=== PATIENT | male | born 1965 | race African-American/Black ===

== ENCOUNTER 2017-05-31 00:31 | Observation (INO) | payer OTHER ==
[2017-05-31 00:58] LABS: #Basophils 0.1 thou/uL (0.0-0.2); #Lymphocytes 2.9 thou/uL (1.20-3.40); #Monocytes 0.8 thou/uL (0.11-0.59); #Neutrophils 2.8 thou/uL (1.40-6.50); %Basophils 1.7 % (0.0-1.0); %Eosinophils 12.8 % (0.0-10.0); %Lymphocytes 37.7 % (21.0-51.0); %Monocytes 10.7 % (0.0-10.0); Hematocrit 43.7 % (42.0-52.0); Mean Platelet Volume 7.5 fL (7.4-10.4); Red Blood Cell (RBC) Count 4.72 mill/uL (4.70-6.10); White Blood Cell (WBC) Count 7.6 thou/uL (4.8-10.8)
[2017-05-31 01:06] LABS: PTT 26.4 SEC (22.9-36.1); Prothrombin Time 12.9 SEC (12.0-14.7)
[2017-05-31 01:18] LABS: Digoxin Less than 0.15 ng/mL (0.8-2.0)
[2017-05-31 01:20] LABS: ALT (SGPT) 39 U/L (8-55); AST (SGOT) 27 U/L (5-34); Alkaline Phosphatase 74 U/L (40-150); Anion Gap 11 mmol/L (10-20); BUN (Urea Nitrogen) 16 mg/dL (8.4-25.7); Bilirubin, Total 0.3 mg/dL (0.2-1.2); CK (CPK) 306 U/L (30-200); Calc. Creatinine Clearance 0 mL/min (70-130); Calcium 9.9 mg/dL (7.8-10.44); Carbon Dioxide 28 mmol/L (22-29); Chloride 100 mmol/L (98-107); Estimated GFR-MDRD 77; Globulin 3.1 g/dL (2.4-3.5); Lipase 34 U/L (8-78); Protein, Total 6.9 g/dL (6.0-8.3)
[2017-05-31 01:23] LABS: Troponin I Less than 0.010 ng/mL (< 0.028)
[2017-05-31] MEDS ORDERED: Nitroglycerin 2% Ointment 1 INCH/1 GM Packet ONE ×2 (01:46→02:23)
[2017-05-31] MEDS ORDERED: Water For Inject, Bacteriostat 30 ML ONE (03:14)
[2017-05-31] MEDS ORDERED: methylPREDNISolone Sod Succ/PF 125 MG/2 ML VIAL ONE (03:14)
[2017-05-31] MEDS ORDERED: Morphine 10 MG/ML VIAL ONE (03:19)
[2017-05-31 05:02] LABS: Troponin I 0.013 ng/mL (< 0.028)
[2017-05-31] MEDS ORDERED: Ondansetron HCl/PF 4 MG/2 ML Vial ONE (05:05)
[2017-05-31] MEDS ORDERED: Ondansetron ODT 4 MG TAB SL PRN (05:25)
[2017-05-31] MEDS ORDERED: Acetaminophen 325 MG TAB PO PRN (05:25)
[2017-05-31] MEDS ORDERED: Ondansetron HCl/PF 4 MG/2 ML Vial IVP PRN (05:25)
[2017-05-31] MEDS ORDERED: Lactated Ringer's 1,000 ML IV SCH (05:30)
[2017-05-31] MEDS ORDERED: Morphine 2 MG/ML SYRINGE SLOW IVP SCH (05:45)
[2017-05-31] MEDS: Nitroglycerin 2% Ointment 1 INCH/1 GM Packet TOP SCH ×2 (05:48→13:41)
[2017-05-31] MEDS ORDERED: PROVENTIL INHALER 6.7 G (200 INHALATIONS) INH PRN (05:53)
--- NOTE | 2017-05-31 05:53 | PDOC.EVN ---
Event Note - Event Note Event Note: 727127 h&P DICTATED 1. COPD EXACERBATION 2. Chets pain 3. HTN 4. H/O DM type 2 plan: see orders
[2017-05-31] MEDS: Mometasone/Formoterol 120 PUFF INHALER INH SCH ×2 (07:03→18:07)
[2017-05-31] MEDS: Aspirin 325 MG TAB PO SCH (08:00)
[2017-05-31] MEDS: busPIRone HCl 10 MG TAB PO SCH ×3 (08:01→20:31)
[2017-05-31] MEDS: Gabapentin 300 MG CAP PO SCH ×2 (08:01→20:34)
[2017-05-31] MEDS: traMADol HCl 50 MG TAB PO SCH ×4 (08:01→20:31)
[2017-05-31 08:06] VITALS: BMI 29.0
[2017-05-31 08:26] LABS: Troponin I 0.014 ng/mL (< 0.028)
--- NOTE | 2017-05-31 08:35 | RAD ---
1 VIEW CHEST: Date: 05/31/17 COMPARISON: 01/02/17. HISTORY: Sharp left-sided chest pain. FINDINGS: Normal cardiac silhouette. Pulmonary vessels and hilum are normal. Costophrenic angles are clear. No masses. No consolidation. No pneumothorax or osseous abnormalities. IMPRESSION: No acute cardiopulmonary process. POS: [facility]
[2017-05-31] MEDS ORDERED: Insulin Detemir 100 UNITS/ML 65 UNITS in Pre-Filled Syringe 1 EACH SC SCH (09:00)
[2017-05-31] MEDS ORDERED: Lurasidone HCl 40 MG TABLET PO SCH (09:00)
[2017-05-31] MEDS ORDERED: Lisinopril 20 MG TAB PO SCH (09:00)
[2017-05-31] MEDS ORDERED: Enoxaparin Sodium 100 MG/ML SYRINGE SC SCH ×3 (09:15→21:00)
--- NOTE | 2017-05-31 10:43 | PDOC.PN ---
- Subjective Encounter Start Date: 05/31/17 Encounter Start Time: 10:41 Mr. Ramos says he feels better this morning. He has less chest pain, and is breathing better. - Objective MAR Reviewed: Yes Vital Signs & Weight: Vital Signs (12 hours) Temp Pulse Resp BP BP Pulse Ox 05/31/17 10:38 70 12 05/31/17 08:01 169/79 H 05/31/17 08:00 97.5 F L 75 16 169/79 H 93 L 05/31/17 07:03 70 12 05/31/17 05:16 97.7 F 89 18 164/89 H 94 L Weight Weight 201 lb 14.4 oz I&O: 05/30/17 05/31/17 06/01/17 06:59 06:59 06:59 Intake Total 1 Balance 1 Result Diagrams: 05/31/17 00:49 05/31/17 00:49 Additional Labs: Accuchecks 05/31/17 05/31/17 08:37 06:42 POC Glucose 220 H 89 Phys Exam - Physical Examination HEENT: PERRLA Respiratory: no rales, wheezing present + occasional wheeze Cardiovascular: RRR, no significant murmur Gastrointestinal: soft, positive bowel sounds Musculoskeletal: no edema Dx/Plan (1) Acute respiratory failure Code(s): J96.00 - ACUTE RESPIRATORY FAILURE, UNSP W HYPOXIA OR HYPERCAPNIA Status: Acute (2) Asthma exacerbation Code(s): J45.901 - UNSPECIFIED ASTHMA WITH (ACUTE) EXACERBATION Status: Acute (3) Cardiomyopathy, nonischemic Code(s): I42.8 - OTHER CARDIOMYOPATHIES Status: Acute (4) Cocaine abuse Code(s): F14.10 - COCAINE ABUSE, UNCOMPLICATED Status: Chronic (5) Hepatitis C Code(s): B19.20 - UNSPECIFIED VIRAL HEPATITIS C WITHOUT HEPATIC COMA Status: Chronic Qualifiers: Viral hepatitis chronicity: chronic Hepatic coma status: without hepatic coma Qualified Code(s): B18.2 - Chronic viral hepatitis C (6) Hypertension Code(s): I10 - ESSENTIAL (PRIMARY) HYPERTENSION Status: Chronic Qualifiers: Hypertension type: essential hypertension Qualified Code(s): I10 - Essential (primary) hypertension - Plan * Asthma exacerbation- improving with Duonebs, and steroids * DM- patient had an episode of hypoglycemia- will therefor give only half of his typical insulin dose, and continue SSI. Probably return to his home dose tomorrow * HTN- Patient says his dose of Lisinopril was lowered after he was placed on Losartan - will adjust. He may need titration of his other medications * Avoid beta blockers given his history of cocaine abuse. He says he last used about a week ago. He may benefit from a calcium channel philip * Cardiomyopathy- this is probably due to uncontrolled hypertension. It appears he may have been lost to follow-up with regards to ? evaluation for possible AICD- a repeat Echo has been ordered, as well as Cardiology evaluation.
[2017-05-31] MEDS ORDERED: Insulin Detemir 100 UNITS/ML 30 UNITS in Pre-Filled Syringe 1 EACH SC SCH (10:45)
[2017-05-31] MEDS ORDERED: Calcium Carbonate 500 MG ChewTAB PO PRN (13:11)
[2017-05-31] MEDS ORDERED: Dextrose 5% in Water 1,000 ML IV PRN (13:11)
[2017-05-31] MEDS ORDERED: Dextrose 50% Abboject 50 ML SYRINGE IVP PRN (13:11)
[2017-05-31] MEDS ORDERED: Simethicone Chewable 80 MG TAB PO PRN (13:12)
[2017-05-31] MEDS ORDERED: HumaLOG 300 UNITS/3 ML VIAL SC SCH (13:15)
[2017-05-31] MEDS ORDERED: Losartan Potassium 25 MG TAB PO SCH (13:15)
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
[2017-05-31] MEDS ORDERED: hydrALAZINE 25 MG TAB PO PRN (16:58)
[2017-05-31] MEDS ORDERED: hydrALAZINE 20 MG/ML VIAL SLOW IVP PRN (16:59)
[2017-05-31] MEDS ORDERED: Amlodipine 5 MG TAB PO SCH (17:30)
[2017-05-31] MEDS: HumaLOG 300 UNITS/3 ML VIAL SC PRN ×2 (17:34→21:08)
[2017-05-31] MEDS ORDERED: NIFEdipine XL 60 MG TAB PO SCH (19:15)
[2017-05-31] MEDS ORDERED: Doxepin HCl 25 MG CAP PO SCH (21:00)
[2017-05-31] MEDS ORDERED: Insulin Detemir 100 UNITS/ML 15 UNITS in Pre-Filled Syringe 1 EACH SC SCH (21:00)
[2017-06-01] MEDS: HumaLOG 300 UNITS/3 ML VIAL SC PRN ×2 (05:25→12:27)
--- NOTE | 2017-06-01 05:38 | CON ---
DATE OF CONSULTATION: 05/31/2017. REASON FOR CONSULTATION: Chest pain. HISTORY OF PRESENT ILLNESS: Mr. Ramos is a delightful 51-year-old gentleman previously seen and evaluated by Dr. Ayala. The patient recently underwent cardiac catheterization and was found to have only minimal atherosclerosis with no significant coronary artery disease. The patient was doing we ll and he was admitted to the hospital on this occasion with recurrent pressure, pain in the middle of his chest and across his chest. EKG was unremarkable. Cardiac enzymes were negative. He was hy pertensive. He does have a lot of symptoms to suggest reflux. He was previously on Prilosec but is not on any p roton pump inhibitors. He also was on a very low dose of statins and has uncontrolled hypertension. PHYSICAL EXAMINATION: GENERAL: This is a pleasant gentleman in no distress. VITAL SIGNS: Blood pressure 179/100, pulse 104. LUNGS: He has expiratory wheezing, has chronic asthma. CARDIAC: Normal S1, normal S2. ABDOMEN: Soft, nontender. EXTREMITIES: No clubbing or cyanosis. There is no edema. LABORATORY AND X-RAY FINDINGS: The echocardiogram shows an ejection fraction of 50%-55% with left v entricular hypertrophy, moderate, concentric. ASSESSMENT: 1. Chest pain, probably gastrointestinal reflux. 2. Diabetes. 3. Reactive airway disease, asthma. 4. Hypercholesterolemia. 5. Mild nonobstructive coronary artery disease. 6. The patient states his blood pressure has been extremely difficult to control. PLAN: 1. Change to Procardia-XL 60 mg a day, increase to 90 mg a day if needed. 2. We change from losartan to Benicar 40 mg a day. 3. Stop lisinopril, he has a chronic cough. 4. Recommend Crestor. 5. Add Protonix. 6. Okay with me to go home tomorrow morning.
[2017-06-01] MEDS: Mometasone/Formoterol 120 PUFF INHALER INH SCH (07:20)
[2017-06-01] MEDS ORDERED: Insulin Detemir 100 UNITS/ML 65 UNITS in Pre-Filled Syringe 1 EACH SC SCH (09:00)
[2017-06-01] MEDS ORDERED: Lisinopril 20 MG TAB PO SCH (09:00)
[2017-06-01] MEDS ORDERED: FLU VACC QS2017-18 36 mo. & older 0.5 ML SYRINGE IM ONE (09:00)
[2017-06-01] MEDS ORDERED: Losartan Potassium 25 MG TAB PO SCH (09:00)
[2017-06-01] MEDS ORDERED: NIFEdipine XL 60 MG TAB PO SCH (09:00)
[2017-06-01] MEDS: Gabapentin 300 MG CAP PO SCH (09:16)
[2017-06-01] MEDS: traMADol HCl 50 MG TAB PO SCH (09:17)
[2017-06-01] MEDS: busPIRone HCl 10 MG TAB PO SCH (09:17)
[2017-06-01] MEDS: Aspirin 325 MG TAB PO SCH (09:17)
[2017-06-01 11:48] VITALS: BP 139/79; TEMP 97.6
--- NOTE | 2017-06-01 23:37 | DIS ---
ADMISSION DATE: 05/31/2017 DISCHARGE DATE: 06/01/2017 DISCHARGE DISPOSITION: Home. PRIMARY CARE PHYSICIAN: [facility]. PRIMARY DISCHARGE DIAGNOSES: 1. Acute on chronic diastolic heart failure. 2. Hypertensive urgency. 3. History of substance abuse. 4. Dyslipidemia. 5. Diabetes mellitus type 2, uncontrolled. DISCHARGE MEDICATIONS: Include tramadol 50 mg q.i.d. as needed, BuSpar 10 mg 3 times a day, Crestor 20 mg at bedtime, pantoprazole 40 mg daily, Procardia-XL 60 mg daily, Latuda 40 mg daily, Levemir i nsulin 65 units daily, NovoLog as directed, gabapentin 300 mg twice a day, doxepin 50 mg at bedtime, Symbicort 160/4.5 two puffs twice a day, albuterol ProAir inhaler q.4 hours as needed. PROCEDURES DONE DURING ADMISSION: The patient had an echocardiogram demonstrating an ejection fract ion estimated at 50 to 55%, moderate concentric left ventricular hypertrophy. There are structurall y normal aortic valve and trace aortic insufficiency. CODE STATUS: FULL CODE. ALLERGIES: No known drug allergies. HOSPITAL COURSE: Mr. Ramos is a pleasant 51-year-old gentleman, who has a history of hypertensio n and diabetes as well as hyperlipidemia. He was admitted with shortness of breath and chest pain. He had basically a COPD exacerbation as well as some hypertensive urgency. He was treated with neb treatments and steroids and improved with this and was discharged home on Symbicort inhaler. He al so had the adjustment of his antihypertensive medications during his hospital stay as well. Procard ia was added and lisinopril was discontinued. Losartan was changed to Benicar for better blood pres sure management. I suspected that the chest pain most likely related to the blood pressure elevatio n as well as COPD exacerbation. The patient was counseled on smoking as well as drug use and the or ed to quit. An echocardiogram was done, which showed an improvement on his ejection fraction from a previous echo and therefore he would no longer require evaluation for AICD. He was seen by Cardiofaheem sandy during this hospital stay. Once stabilized, he was subsequently discharged home and to follow u p with his primary care physician in 1 to 2 weeks.
== END 2017-06-01 13:06 | disposition home or self-care (01) ==
LOC: ERS 00:31 → 2SW 04:22
PROVIDERS: ADMIT Internal Medicine; ATTEND Internal Medicine
DX: I11.0 Hypertensive heart disease with heart failure (principal); I50.33 Acute on chronic diastolic (congestive) heart failure; I16.0 Hypertensive urgency; E11.65 Type 2 diabetes mellitus with hyperglycemia; J45.901 Unspecified asthma with (acute) exacerbation; E78.00 Pure hypercholesterolemia, unspecified; I25.10 Atherosclerotic heart disease of native coronary artery without angina pectoris; J96.00 Acute respiratory failure, unspecified whether with hypoxia or hypercapnia; F14.10 Cocaine abuse, uncomplicated; B19.20 Unspecified viral hepatitis C without hepatic coma; Z79.4 Long term (current) use of insulin; Z79.899 Other long term (current) drug therapy; Z86.59 Personal history of other mental and behavioral disorders
CPT/HCPCS: 36415; 36416; 71010; 80053; 80162; 82553; 83690; 84484; 85025; 85610; 85730; 90471; 90682; 93005; 93306; 94640; 94760; 96372; 96374; 96375; 96376; G0008; G0378; J0360; J1650; J1815; J2270; J2405; J2920; J2930; J7620; Q2036

== ENCOUNTER 2017-06-02 21:27 | Emergency (ER) | payer OTHER ==
--- NOTE | 2017-06-02 22:01 | RAD ---
AP VIEW OF THE CHEST 06/02/17 INDICATION: Chest pain. COMPARISON: Prior exam dated 05/31/17. IMPRESSION: No acute cardiopulmonary abnormality. The examination does not appear appreciably changed from the c omparison study. POS: [facility]
[2017-06-02 22:07] LABS: #Basophils 0.1 thou/uL (0.0-0.2); #Eosinphils 0.2 thou/uL (0.0-0.7); #Lymphocytes 3.8 thou/uL (1.20-3.40); #Monocytes 0.8 thou/uL (0.11-0.59); #Neutrophils 3.7 thou/uL (1.40-6.50); %Basophils 1.3 % (0.0-1.0); %Eosinophils 2.2 % (0.0-10.0); %Lymphocytes 43.6 % (21.0-51.0); %Monocytes 9.6 % (0.0-10.0); Hematocrit 43.9 % (42.0-52.0); Mean Platelet Volume 7.7 fL (7.4-10.4); White Blood Cell (WBC) Count 8.7 thou/uL (4.8-10.8)
[2017-06-02] MEDS ORDERED: Nitroglycerin 2% Ointment 1 INCH/1 GM Packet ONE (22:16)
[2017-06-02 22:24] LABS: ALT (SGPT) 30 U/L (8-55); AST (SGOT) 22 U/L (5-34); Alkaline Phosphatase 68 U/L (40-150); Anion Gap 15 mmol/L (10-20); BUN (Urea Nitrogen) 15 mg/dL (8.4-25.7); Bilirubin, Total 0.3 mg/dL (0.2-1.2); CK (CPK) 186 U/L (30-200); Calc. Creatinine Clearance 0 mL/min (70-130); Calcium 8.7 mg/dL (7.8-10.44); Carbon Dioxide 24 mmol/L (22-29); Chloride 102 mmol/L (98-107); Estimated GFR-MDRD 74; Globulin 3.7 g/dL (2.4-3.5); Protein, Total 7.4 g/dL (6.0-8.3)
[2017-06-02 22:29] LABS: Troponin I 0.013 ng/mL (< 0.028)
[2017-06-02] MEDS ORDERED: Albuterol Sulfate 1.25 MG/3 ML NEB ONE (22:33)
[2017-06-02] MEDS ORDERED: Albuterol Sulfate 2.5 mg/3 ml Neb ONE (22:37)
[2017-06-03] MEDS ORDERED: Morphine 10 MG/ML VIAL ONE (00:19)
--- NOTE | 2017-06-13 16:07 | EKG ---
Test Reason : CHEST PAIN Blood Pressure : / mmHG Vent. Rate : 081 BPM Atrial Rate : 081 BPM P-R Int : 160 ms QRS Dur : 112 ms QT Int : 376 ms P-R-T Axes : 057 -44 069 degrees QTc Int : 436 ms Normal sinus rhythm Possible Left atrial enlargement Left axis deviation Left ventricular hypertrophy Nonspecific T wave abnormality Abnormal ECG Confirmed by KASSANDRA ACHARYA DO ([id number]), video effects editor MIKE GARCIA ([id number]) on 06/13/2017 4:07:05 PM Referred By: Confirmed By:KASSANDRA ACHARYA DO
== END 2017-06-03 01:02 | disposition short-term general hospital (02) ==
LOC: ERS 21:27
DX: R07.2 Precordial pain (principal); J44.9 Chronic obstructive pulmonary disease, unspecified; E11.9 Type 2 diabetes mellitus without complications; I10 Essential (primary) hypertension; F32.9 Major depressive disorder, single episode, unspecified; F20.9 Schizophrenia, unspecified; Z79.4 Long term (current) use of insulin; Z79.899 Other long term (current) drug therapy
CPT/HCPCS: 71010; 80053; 82553; 84484; 85025; 93005; 94640; 96374; J2270; J7611

== ENCOUNTER 2017-11-03 10:03 | Emergency (ER) | payer MEDICAID, MEDICARE ==
[2017-11-03 12:19] LABS: #Basophils 0.1 thou/uL (0.0-0.2); #Eosinphils 0.2 thou/uL (0.0-0.7); #Lymphocytes 1.9 thou/uL (1.20-3.40); #Monocytes 0.9 thou/uL (0.11-0.59); #Neutrophils 4.2 thou/uL (1.40-6.50); %Basophils 0.9 % (0.0-1.0); %Eosinophils 2.8 % (0.0-10.0); %Lymphocytes 25.9 % (21.0-51.0); %Monocytes 12.9 % (0.0-10.0); %Neutrophils 57.5 % (42.0-75.0); Hemoglobin 15.4 g/dL (14.0-18.0); Mean Corpuscular HGB CONC 33.3 g/dL (32.0-36.0); Mean Corpuscular Hemoglobin 30.8 pg (27.0-31.0); Mean Corpuscular Volume 92.5 fl (80.0-94.0); Mean Platelet Volume 8.3 fL (7.4-10.4); Platelet Count 276 thou/uL (130-400); RBC Distribution Width 12.8 % (11.5-14.5); White Blood Cell (WBC) Count 7.2 thou/uL (4.8-10.8)
[2017-11-03 12:26] LABS: ALT (SGPT) 39 U/L (8-55); AST (SGOT) 25 U/L (5-34); Alkaline Phosphatase 105 U/L (40-150); Anion Gap 15 mmol/L (10-20); BUN (Urea Nitrogen) 16 mg/dL (8.4-25.7); Bilirubin, Total 0.6 mg/dL (0.2-1.2); Calc. Creatinine Clearance 0 mL/min (70-130); Calcium 8.9 mg/dL (7.8-10.44); Carbon Dioxide 19 mmol/L (22-29); Chloride 101 mmol/L (98-107); Estimated GFR-MDRD 72; Globulin 3.9 g/dL (2.4-3.5); Glucose 446 mg/dL (70-105); Potassium 4.1 mmol/L (3.5-5.1); Protein, Total 7.9 g/dL (6.0-8.3); Sodium 131 mmol/L (136-145)
--- NOTE | 2017-11-03 14:07 | RAD ---
LEFT FOOT THREE VIEWS: CLINICAL HISTORY: Soft tissue wound. FINDINGS: There is scattered osteoarthritis of the left foot. Calcaneal enthesophyte formation is seen. There is vascular calcification. No acute fracture or dislocation. IMPRESSION: Degenerative change of the left foot osseous structures without acute osseous abnormality identified. POS: [facility]
--- NOTE | 2017-11-03 14:11 | RAD ---
RIGHT FOOT THREE VEIWS: CLINICAL HISTORY: Soft tissue wound. FINDINGS: There is scattered mild osteoarthritis. There is vascular calcification. No fracture or dislocation . Calcaneal enthesophyte formation is present. IMPRESSION: 1. Mild osteoarthritis. 2. No acute osseous abnormality of the right foot. POS: [facility]
[2017-11-03] MEDS ORDERED: Morphine 4 MG/ML VIAL ONE ×2 (14:41→16:32)
[2017-11-03] MEDS ORDERED: Acetaminophen 500 MG TAB ONE (14:41)
[2017-11-03] MEDS ORDERED: Piperacillin/Tazobactam 4.5 GM in Sodium Chloride 0.9% 100 ML IVPB SCH (15:00)
[2017-11-03] MEDS ORDERED: HYDROcodone/Acetaminophen 5/325 mg Tablet PO PRN (18:08)
[2017-11-03] MEDS ORDERED: hydrALAZINE 20 MG/ML VIAL SLOW IVP PRN (18:08)
[2017-11-03] MEDS ORDERED: Benzonatate 100 MG CAP PO PRN (18:08)
[2017-11-03] MEDS ORDERED: traMADol HCl 50 MG TAB PO PRN (18:08)
[2017-11-03] MEDS ORDERED: Lorazepam 1 MG TAB PO PRN (18:08)
[2017-11-03] MEDS ORDERED: Calcium Carbonate 500 MG ChewTAB PO PRN (18:08)
[2017-11-03] MEDS ORDERED: Senokot 8.6 MG TAB PO PRN ×2 (18:08)
[2017-11-03] MEDS ORDERED: Nitroglycerin 0.4 MG TAB (25 Tab Bottle) SL PRN (18:08)
[2017-11-03] MEDS ORDERED: Bisacodyl 5 MG TAB PO PRN ×2 (18:08)
[2017-11-03] MEDS ORDERED: Acetaminophen 325 MG TAB PO PRN (18:08)
[2017-11-03] MEDS ORDERED: Diabetic Tussin 200 MG/10 ML UDCUP PO PRN (18:08)
[2017-11-03] MEDS ORDERED: Ondansetron HCl/PF 4 MG/2 ML Vial IVP PRN ×2 (18:08)
[2017-11-03] MEDS ORDERED: Loratadine 10 MG TAB PO PRN (18:08)
[2017-11-03] MEDS ORDERED: Mag-Al 1200 mg/1200 mg/30 ML UDCUP PO PRN (18:08)
[2017-11-03] MEDS ORDERED: cloNIDine 0.1 MG TAB PO PRN (18:08)
[2017-11-03] MEDS ORDERED: Sodium Chloride 0.9% 1,000 ML IV SCH (18:15)
[2017-11-03] MEDS ORDERED: Dextrose 5% in Water 1,000 ML IV PRN (18:18)
[2017-11-03] MEDS ORDERED: HumaLOG 300 UNITS/3 ML VIAL SC PRN ×2 (18:18)
[2017-11-03] MEDS ORDERED: Dextrose 50% Abboject 50 ML SYRINGE SLOW IVP PRN (18:18)
[2017-11-03] MEDS ORDERED: Bacitracin Zinc 1 Packet ONE (18:36)
--- NOTE | 2017-11-03 19:36 | HP ---
DATE OF ADMISSION: 11/03/2017 PRIMARY CARE PHYSICIAN: Robert Broderick M.D. CHIEF COMPLAINT: Abscess of the left foot with pain and swelling. HISTORY OF PRESENT ILLNESS: Mr. Ramos is a 52-year-old Afro-Chinese male with past medical histo ry of diabetes, hypertension, COPD, hepatitis C as well as CHF, who presented to the emergency room w ith the above-mentioned complaint. His history is mainly obtained by the patient himself. [facility] medical records have been reviewed. According to Mr. Ramos, he started to notice that his foot on the left has been hurting and when h e looked he found that he has a big blister underneath. He does not remember how he got the blister, but he reports that he has significant neuropathy and is unable to wear any kind of shoes. He has h ardwood floor and tile floor in his home and most likely things that he abraded his foot. He has not been able to get appointment with his primary care physician and of note is that his wound has been draining pus at home. It is all underneath his toes as well as in between the toes of the left foot. He denies any fever, chills, nausea, vomiting, body aches or other symptoms at this time. He state s he is compliant with his medications, but has run out of Levemir 2 days ago, but is still using hemant rt-acting insulin. He is checking his blood sugar and blood pressure, but is unable to tell me what his average blood sugar is. Upon presentation to the emergency room, he is hemodynamically stable. He underwent x-ray of the corbin t on the right as well as left and they are both negative for any acute osseous abnormality except fo r degenerative changes. He has received IV antibiotics in the emergency room in the form of vancomyc in and Zosyn, and is now being admitted for further evaluation and care. Dr. Mendoza from [facility] team has been consulted for possible debridement and evaluating the patient in the emergency stefan at this time. PAST MEDICAL HISTORY: 1. Nonobstructive coronary artery disease. 2. Chronic persistent asthma with multiple asthma flares, requiring hospitalization. 3. Hypertension. 4. Chronic hepatitis C. 5. Gastroesophageal reflux disease. 6. Obesity. PAST SURGICAL HISTORY: Cardiac catheterization. PAST PSYCHIATRIC HISTORY: Paranoid schizophrenia. ALLERGIES: No known medication allergies. SOCIAL HISTORY: The patient is and lives at home. Remote history of cocaine abuse, but repo rt he is currently clean. No alcohol or tobacco abuse. FAMILY HISTORY: Significant for heart disease among several family members. ALLERGIES: No known drug allergies. CURRENT MEDICATIONS: He does not remember what he takes, but does remember that he takes Levemir and short-acting insulin. Other medications as follows, as per the ER record and the dose needs to be c onfirmed. 1. Losartan. 2. Lovastatin. 3. Gabapentin. 4. Albuterol. 5. Novolin N. REVIEW OF SYSTEMS: The following complete review of systems was negative, unless otherwise mentioned in the HPI or below: Constitutional: Weight loss or gain, ability to conduct usual activities. Skin: Rash, itching. Eyes: Double vision, pain. ENT/Mouth: Nose bleeding, neck stiffness, pain, tenderness. Cardiovascular: Palpitations, dyspnea on exertion, orthopnea. Respiratory: Shortness of breath, wheezing, cough, hemoptysis, fever or night sweats. Gastrointestinal: Poor appetite, abdominal pain, heartburn, nausea, vomiting, constipation, or diarrhea. Genitourinary: Urgency, frequency, dysuria, nocturia. Musculoskeletal: Pain, swelling. Neurologic/Psychiatric: Anxiety, depression. Allergy/Immunologic: Skin rash, bleeding tendency. PHYSICAL EXAMINATION: VITAL SIGNS: Blood pressure 136/91, pulse of 94, respirations 18, temperature 98.3, saturating 97% o n room air. GENERAL: No acute distress, awake, alert, and oriented x3. HEENT: Mucous membrane is moist and pink. No oropharyngeal exudate or erythema. Head is normocepha lic, atraumatic. Pupils equal, reactive to light and accommodation. Extraocular movement intact. NECK: Supple without any lymphadenopathy, JVD or bruit. CHEST: Clear to auscultation without any wheezing, rales or rhonchi. CARDIOVASCULAR: Rate and rhythm is regular without any murmur, rubs or gallops. ABDOMEN: Soft, nontender, nondistended, positive bowel sounds. EXTREMITIES: Evaluation shows a 4 x3 area of fluctuance and discoloration to the plantar aspect of t he ball of the left foot with surrounding blanchable erythema. He also has some skin erosion, erythe ma, and fluid drainage in between all toes of the left foot. Also, there is a small area of fluctuan ce to the plantar aspect of right foot without any erythema, tenderness, or visible drainage. His le ft toes are significantly tender. Edema in the left lower extremity, mild nonpitting. NEUROLOGIC: Nonfocal. SKIN: Free of any rashes or bruises. Feel warm and dry to touch. LABORATORY: X-ray of bilateral feet shows no dislocation, only mild osteoarthritis. CBC is unremark able. ESR is normal at 16. Serum chemistry shows sodium 131, bicarbonate 19, blood sugar 446. CRP slightly high at 0.99. IMPRESSION AND PLAN: 1. Left lower extremity foot cellulitis and diabetic ulcer. The patient will be treated with IV ant ibiotics, IV fluids, and we will consult General Surgery for possible incision and drainage. Culture s will be obtained and send for sensitivity. Follow the recommendations from the General Surgery tea m. 2. Hyperglycemia and uncontrolled diabetes mellitus. At this time, we will start him back on Levemi r and adjust the dose once confirmed. Continue with insulin sliding scale while in the hospital. 3. Hypertension. Resume home medications once the dosages are confirmed. Add p.r.n. antihypertensi ves still then. 4. Hyponatremia, most likely pseudohyponatremia secondary to uncontrolled hyperglycemia. We will co ntinue to follow. 5. Mild nonobstructive coronary artery disease. Continue with his home medications once confirmed. 6. Mild chronic persistent asthma. We will add nebulizers as needed basis and resume his home medic ations if he takes any inhalers, etc. 7. Code status: FULL CODE. Discussed with the patient. 8. Deep venous thrombosis and gastrointestinal prophylaxis. 9. Mr. Ramos is currently being admitted to the hospital for left foot diabetic infection and shayne lulitis. Estimated length of stay is at least 2-3 midnight. Further management will depend upon his clinical course.
[2017-11-03] MEDS ORDERED: Insulin Detemir 100 UNITS/ML 15 UNITS SC SCH (21:00)
[2017-11-03] MEDS ORDERED: Vancomycin HCl 1 GM in Premix Bag 1 BAG IVPB SCH (21:00)
[2017-11-03] MEDS ORDERED: Famotidine 20 MG TAB PO SCH (21:00)
[2017-11-03] MEDS ORDERED: Piperacillin/Tazobactam 3.375 GM in Sodium Chloride 0.9% 100 ML IVPB SCH (23:59)
--- NOTE | 2017-11-04 00:29 | OP ---
PREOPERATIVE DIAGNOSIS: Diabetic blister, left foot. POSTOPERATIVE DIAGNOSIS: Diabetic blister, left foot. PROCEDURES: Bedside ER debridement of blistered skin with intact underlying tissue sharply excisiona l debrided 10-blade scalpel. SURGEON: Dr. Jack Mendoza ANESTHESIA: None PROCEDURE IN DETAIL: With the patient at bedside in the emergency room, plantar foot prepared with a lcohol. Blistered skin removed over about 4.5 cm2 area and underlying cloudy fluid sent for culture. Underlying tissue was intact. Antibiotic ointment, Telfa and Coban applied. Postop shoe recommend ed. Follow up in my office in 2 weeks.
--- NOTE | 2017-11-04 02:10 | HP ---
HISTORY OF PRESENT ILLNESS: Eron Ramos is a 52-year-old black male with diabetic, hypertensiv e, paranoid schizophrenic presents to the emergency room with complaints of both feet, more severe le ft foot. PLAN: I have been asked to see him regarding his left foot. Glucose is at 2:00 p.m.(it is now 6:30 p.m.) was 400. Patient is stable. On evaluation of his foot, he has palpable pedal pulses. He has a blister on the plantar aspect of his left foot. At the bedside, this blistered skin was removed in clude beneath cultured the skin underneath is intact. There are no sinus tracts. My opinion is that he could be treated with oral antibiotics. Antibiotic ointment, Telfa, Coban, and a postop shoe and follow up in my office in 2-3 weeks. He can come to see me sooner if necessary. If he is admitted for diabetic reasons, I will see him as needed in the hospital, wound care can see him for his wound.
[2017-11-04] MEDS ORDERED: Insulin Detemir 100 UNITS/ML 15 UNITS SC SCH (09:00)
[2017-11-04] MEDS ORDERED: Enoxaparin Sodium 40 MG/0.4 ML SYRINGE SC SCH (09:00)
--- NOTE | 2017-11-04 15:32 | DIS ---
DATE OF ADMISSION: 11/03/2017 DATE OF DISCHARGE: 11/03/2017 CONDITION AT THE TIME OF DISCHARGE: Stable. PRIMARY CARE PHYSICIAN: [facility]. CONSULTATIONS: General Surgery, Dr. Mendoza. PROCEDURES DONE IN THE HOSPITAL: 1. Bedside debridement of blistered skin of left foot with sharp tissue excision by Dr. Mendoza. 2. X-ray of the left and right foot, which are unremarkable except for some soft tissue swelling. HISTORY OF PRESENTING ILLNESS: Mr. Ramos is a 52-year-old male with history of hypertension and u ncontrolled diabetes mellitus as well as chronic hepatitis C and coronary artery disease who presente d to the emergency room after he started to have pain in his left foot and noticed swelling and pus d rainage from the plantar surface as well as between his fingers. He was hemodynamically stable at th e time of presentation and was admitted for IV antibiotic and General Surgery consultation. Please s ee admission history and physical for further details. HOSPITAL COURSE: The patient was promptly seen by Dr. Mendoza even in the emergency room. His recomm endation was that this most likely is not an abscess and just needed surface debridement which was do ne at bedside. After that, the patient was stable and according to Dr. Mendoza, he could go home and was discharged from the emergency room and oral antibiotics were recommended. Unfortunately, the patient was discharged without contacting myself. I am not sure if the patient wa s given prescription for the antibiotics or not. He was discharged by General Surgery according to v erbal orders given to the emergency room nurses. Once again, I was not planning to discharge this anali arango and he was discharged without my knowledge shortly after the admission. He was also found to be hyperglycemic at the time of presentation with blood sugar of 446 and would h ave benefited from overnight monitoring. However, at this time, hopefully, he will follow up with or s primary care physician and general surgeon in the outpatient setting.
== END 2017-11-03 19:10 | disposition home or self-care (01) ==
LOC: ERS 10:03
DX: E11.621 Type 2 diabetes mellitus with foot ulcer (principal); L97.529 Non-pressure chronic ulcer of other part of left foot with unspecified severity; L97.519 Non-pressure chronic ulcer of other part of right foot with unspecified severity; L03.116 Cellulitis of left lower limb; E11.65 Type 2 diabetes mellitus with hyperglycemia; J44.9 Chronic obstructive pulmonary disease, unspecified; I10 Essential (primary) hypertension; F32.9 Major depressive disorder, single episode, unspecified; F20.9 Schizophrenia, unspecified; Z79.4 Long term (current) use of insulin; Z79.899 Other long term (current) drug therapy
CPT/HCPCS: 36415; 36416; 80053; 85025; 85652; 86140; 87070; 87077; 87186; 87205; 96365; 96366; 96367; 96375; 96376; J1815; J2270; J2543; J3370; J7050

== ENCOUNTER 2017-11-29 11:37 | Emergency (ER) | payer MEDICARE ==
[2017-11-29 12:02] LABS: #Basophils 0.1 thou/uL (0.0-0.2); #Eosinphils 0.2 thou/uL (0.0-0.7); #Lymphocytes 1.8 thou/uL (1.20-3.40); #Monocytes 0.8 thou/uL (0.11-0.59); #Neutrophils 4.3 thou/uL (1.40-6.50); %Basophils 1.8 % (0.0-1.0); %Eosinophils 2.4 % (0.0-10.0); %Lymphocytes 25.4 % (21.0-51.0); %Monocytes 10.8 % (0.0-10.0); %Neutrophils 59.6 % (42.0-75.0); Hemoglobin 14.6 g/dL (14.0-18.0); Mean Corpuscular HGB CONC 34.7 g/dL (32.0-36.0); Mean Corpuscular Hemoglobin 30.8 pg (27.0-31.0); Mean Corpuscular Volume 88.7 fl (80.0-94.0); Mean Platelet Volume 7.2 fL (7.4-10.4); Platelet Count 341 thou/uL (130-400); Red Blood Cell (RBC) Count 4.75 mill/uL (4.70-6.10); White Blood Cell (WBC) Count 7.2 thou/uL (4.8-10.8)
[2017-11-29 12:26] LABS: ALT (SGPT) 56 U/L (8-55); AST (SGOT) 46 U/L (5-34); Acetaminophen Less than 6.0 mcg/mL (10.0-30.0); Albumin 4.2 g/dL (3.5-5.0); Alcohol Less than 10 mg/dL (Less than 10); Alkaline Phosphatase 96 U/L (40-150); Anion Gap 17 mmol/L (10-20); BUN (Urea Nitrogen) 16 mg/dL (8.4-25.7); Bilirubin, Total 1.2 mg/dL (0.2-1.2); CK (CPK) 771 U/L (30-200); Calc. Creatinine Clearance 0 mL/min (70-130); Calcium 9.2 mg/dL (7.8-10.44); Carbon Dioxide 21 mmol/L (22-29); Chloride 96 mmol/L (98-107); Estimated GFR-MDRD 79; Globulin 3.4 g/dL (2.4-3.5); Glucose 301 mg/dL (70-105); Potassium 3.9 mmol/L (3.5-5.1); Protein, Total 7.6 g/dL (6.0-8.3); Salicylate Less than 8.0 mg/dL (15.0-30.0); Sodium 130 mmol/L (136-145)
[2017-11-29] MEDS ORDERED: Insulin Regular 300 UNITS/3 ML VIAL ONE (12:50)
[2017-11-29] MEDS ORDERED: Acetaminophen 500 MG TAB ONE (12:52)
[2017-11-29 14:05] LABS: Bilirubin Negative (Negative); Blood, Urine Negative (Negative); Clarity CLEAR (Clear); Glucose, Urine (Dipstick) 500 mg/dL (Negative); Leukocyte Negative (Negative); Nitrite Negative (Negative); Protein, Urine (Dipstick) Negative (Neg-Trace); Specific Gravity, Urine 1.015 (1.002-1.036)
[2017-11-29 14:17] LABS: Amphetamine Not Detected (NotDetected); Barbiturates Screen Not Detected (NotDetected); Benzodiazepine Screen Not Detected (NotDetected); Cocaine Metabolite Screen Detected (NotDetected); Medtox Control Line Valid? VALID (VALID); Medtox Reader # READER 1; Methadone Not Detected (NotDetected); Methamphetamine Not Detected (NotDetected); Opiate Screen Not Detected (NotDetected); Oxycodone Screen Not Detected (NotDetected); Phencyclidine (PCP) Not Detected (NotDetected); THC/Cannabinoid Screen Detected (NotDetected); Tricyclic Screen Not Detected (NotDetected)
== END 2017-11-29 12:00 | disposition home or self-care (01) ==
LOC: ERS 11:37
DX: F32.9 Major depressive disorder, single episode, unspecified (principal); J44.9 Chronic obstructive pulmonary disease, unspecified; E11.9 Type 2 diabetes mellitus without complications; B19.20 Unspecified viral hepatitis C without hepatic coma; J45.909 Unspecified asthma, uncomplicated; I11.0 Hypertensive heart disease with heart failure; I50.9 Heart failure, unspecified; F20.9 Schizophrenia, unspecified; Z79.899 Other long term (current) drug therapy; Z79.4 Long term (current) use of insulin
CPT/HCPCS: 36415; 36416; 80053; 80306; 80307; 81003; 82550; 84443; 85025; 93005; 96360; 96361; 96372; J1815

== ENCOUNTER 2018-03-09 21:39 | Inpatient (IN) | payer MEDICARE, OTHER ==
[2018-03-09 23:10] LABS: #Basophils 0.1 thou/uL (0.0-0.2); #Lymphocytes 2.4 thou/uL (1.20-3.40); #Monocytes 0.8 thou/uL (0.11-0.59); #Neutrophils 4.3 thou/uL (1.40-6.50); %Basophils 1.3 % (0.0-1.0); %Eosinophils 11.3 % (0.0-10.0); %Lymphocytes 28.4 % (21.0-51.0); Hemoglobin 13.9 g/dL (14.0-18.0); Mean Corpuscular HGB CONC 34.7 g/dL (32.0-36.0); Mean Corpuscular Volume 89.4 fL (78.0-98.0); Mean Platelet Volume 7.6 fL (7.4-10.4); Platelet Count 273 thou/uL (130-400); RBC Distribution Width 12.6 % (11.5-14.5); White Blood Cell (WBC) Count 8.6 thou/uL (4.8-10.8)
[2018-03-09 23:27] LABS: ALT (SGPT) 41 U/L (8-55); AST (SGOT) 28 U/L (5-34); Albumin 4.2 g/dL (3.5-5.0); Alkaline Phosphatase 80 U/L (40-150); Anion Gap 16 mmol/L (10-20); BUN (Urea Nitrogen) 13 mg/dL (8.4-25.7); Bilirubin, Total 0.4 mg/dL (0.2-1.2); Calc. Creatinine Clearance 0 mL/min (70-130); Calcium 9.5 mg/dL (7.8-10.44); Carbon Dioxide 22 mmol/L (22-29); Chloride 105 mmol/L (98-107); Estimated GFR-MDRD 79; Globulin 3.5 g/dL (2.4-3.5); Glucose 166 mg/dL (70-105); Potassium 3.7 mmol/L (3.5-5.1); Protein, Total 7.7 g/dL (6.0-8.3); Sodium 139 mmol/L (136-145)
[2018-03-09 23:30] LABS: Troponin I Less than 0.010 ng/mL (< 0.028)
[2018-03-09 23:34] LABS: CKMB 6.7 ng/mL (0-6.6)
--- NOTE | 2018-03-09 23:37 | RAD ---
AP VIEW OF THE CHEST: 03/09/18 INDICATION: Cough. COMPARISON: Prior exam dated 06/02/17. FINDINGS: The lungs are mildly hyperexpanded but clear. Mild cardiomegaly is stable. Chronic osseous changes ar e similar to the comparison. IMPRESSION: No acute cardiopulmonary abnormality. POS: [facility]
[2018-03-09] MEDS ORDERED: methylPREDNISolone Sod Succ/PF 125 MG/2 ML VIAL ONE (23:44)
[2018-03-10] MEDS ORDERED: Magnesium Sulfate 2 GM in Sodium Chloride 0.9% 100 ML IVPB SCH (00:45)
[2018-03-10] MEDS ORDERED: Dextrose 50% Abboject 50 ML SYRINGE SLOW IVP PRN (00:49)
[2018-03-10] MEDS ORDERED: Dextrose 5% in Water 1,000 ML IV PRN (00:49)
[2018-03-10 00:54] LABS: Actual Bicarbonate (HCO3a) 25.9 mEq/L (22-28); Base Excess (BEa) 0.9 mEq/L (-2.0 to +3.0); CO2 Tension 42.8 mmHg (35.0-45.0); O2 Tension (PaO2) 85.2 mmHg (80.0-100.0)
[2018-03-10 00:55] LABS: Analyzer IN Cardio ER; Calcium, Ionized 1.2 mmol/L (1.12-1.30); Hematocrit-ABG 40.8 % (42.0-52.0); Hemoglobin (Hb) 13.5 g/dL (14.0-18.0); Puncture Site RBA
--- NOTE | 2018-03-10 03:01 | HP ---
PRIMARY CARE PHYSICIAN: [facility]. CHIEF COMPLAINT: Shortness of breath. HISTORY OF PRESENT ILLNESS: Patient is a 52-year-old -F[place]ian male with moderate persistent asthma, was brought into the emergency room with worsening shortness of breath over the last 2-3 days . He also has an intractable coughing spells along with significant wheezing of same duration. No f ever or chills reported. He denies any orthopnea, leg swelling, or paroxysmal nocturnal dyspnea. Hi s nebulizer is not functioning. He tried using albuterol inhaler without much relief. In the emergency room, patient was started on noninvasive positive pressure ventilation due to respir atory distress and hypoxia. He received magnesium along with Solu-Medrol and nebulizer treatments. PAST MEDICAL HISTORY: 1. Coronary artery disease. 2. Chronic pulse persistent asthma with frequent asthma exacerbation. 3. Hypertension. 4. Chronic hepatitis C. 5. Gastroesophageal reflux disease. 6. Paranoid schizophrenia. PAST SURGICAL HISTORY: Cardiac catheterization. ALLERGIES: No known drug allergies. CURRENT HOME MEDICATIONS: Patient is unable to recall all of his home medications. SOCIAL HISTORY: He currently takes gabapentin, Levemir, lovastatin, and Protonix. SOCIAL HISTORY: Patient currently lives at home. He denies current use of alcohol or tobacco abuse. He has a remote history of cocaine abuse. FAMILY HISTORY: Positive for heart disease in several family members. REVIEW OF SYSTEMS: The following complete review of systems was negative, unless otherwise mentioned in the HPI or below: Constitutional: Weight loss or gain, ability to conduct usual activities. Sk in: Rash, itching. Eyes: Double vision, pain. ENT/Mouth: Nose bleeding, neck stiffness, pain, te nderness. Cardiovascular: Palpitations, dyspnea on exertion, orthopnea. Respiratory: Shortness of breath, wheezing, cough, hemoptysis, fever, or night sweats. Gastrointestinal: Poor appetite, abdom inal pain, heartburn, nausea, vomiting, constipation, or diarrhea. Genitourinary: Urgency, frequenc y, dysuria, nocturia. Musculoskeletal: Pain, swelling. Neurologic/Psychiatric: Anxiety, depressio n. Allergy/Immunologic: Skin rash, bleeding tendency. PHYSICAL EXAMINATION: VITAL SIGNS: In the emergency room showed temperature of 98.7, respirations 24, pulse rate of 95, bl ood pressure of 127/81 with O2 saturation of 96% on noninvasive positive pressure ventilation. HEENT: Head atraumatic, normocephalic. Sclerae anicteric. Moist mucous membrane, no oral lesion. NECK: Supple, no JVD appreciated. No carotid bruit. LUNGS: Showed diffuse expiratory wheezing with scattered rhonchi. No significant rales noted. HEART: S1, S2 present. Regular rate and rhythm. No rubs or gallops appreciated. ABDOMEN: Soft, nontender, bowel sounds present. EXTREMITIES: No edema or calf tenderness. NEUROLOGIC: Grossly nonfocal, moves all four extremities. PSYCHIATRY: Alert, awake, oriented x3. SKIN: Warm and dry. LYMPH NODES: No palpable lymph nodes in the neck. PERIPHERAL VASCULAR: Radial pulses palpable bilaterally. MUSCULOSKELETAL: No joint swelling or tenderness. LABORATORY FINDINGS: CBC showed WBC of 8.6 with hemoglobin 13.9, hematocrit 40.2, platelet count of 273. Chemistries showed sodium 139, potassium 3.7, chloride 105, bicarbonate 22, BUN 13, creatinine 1.1, glucose 166. Troponin was negative. CK was 730 Telemetry monitoring by my review showed sinus rhythm. Chest x-ray by my review was negative for infiltrate. IMPRESSION: 1. Acute hypoxic respiratory failure secondary to acute asthma exacerbation. 2. Diabetes mellitus, type 2. 3. Hypertension. 4. Chronic hepatitis C. 5. Moderate persistent asthma. 6. Gastroesophageal reflux disease. 7. Schizophrenia/depression. 8. Mild chronic anemia. 9. Elevated CK due of accessory muscles of respiration use. PLAN: Patient will be monitored in the intermediate care unit. We will continue noninvasive positiv e pressure ventilation. We will continue O2 supplementation with steroids and antibiotics. Consult Pulmonary. Nebulizer treatment every 4 hourly and as needed. Plan of care was discussed with the anali arango in detail. He stated understanding.
[2018-03-10 05:04] VITALS: BMI 28.2
[2018-03-10] MEDS ORDERED: Ondansetron HCl/PF 4 MG/2 ML Vial IVP PRN (05:59)
[2018-03-10] MEDS ORDERED: Calcium Carbonate 500 MG ChewTAB PO PRN (05:59)
[2018-03-10] MEDS ORDERED: Ondansetron ODT 4 MG TAB PO PRN (05:59)
[2018-03-10] MEDS ORDERED: Mag-Al 1200 mg/1200 mg/30 ML UDCUP PO PRN (05:59)
[2018-03-10] MEDS: Insulin Regular 300 UNITS/3 ML VIAL SC PRN ×4 (06:08→20:24)
[2018-03-10] MEDS: Acetaminophen 325 MG TAB PO PRN ×3 (07:32→21:34)
[2018-03-10] MEDS: guaiFENesin ER 600 MG TAB PO SCH ×2 (08:49→20:24)
[2018-03-10] MEDS: Diabetic Tussin 200 MG/10 ML UDCUP PO PRN ×2 (08:49→15:37)
[2018-03-10] MEDS: Famotidine 20 MG TAB PO SCH ×2 (08:49→20:24)
[2018-03-10] MEDS: Enoxaparin Sodium 40 MG/0.4 ML SYRINGE SC SCH (08:50)
[2018-03-10] MEDS: Insulin Glargine 20 UNITS in Pre-Filled Syringe 1 EACH SC SCH ×2 (08:50→20:24)
[2018-03-10] MEDS: Docusate 100 MG CAP PO SCH ×2 (08:50→20:24)
--- NOTE | 2018-03-10 13:23 | CON ---
DATE OF CONSULTATION: 03/10/2018 Following encompassed 70 minutes time. Of that time, greater than 50% of the time was spent with the patient an - or on the patient's floor in the hospital. REASON FOR CONSULTATION: Asthma exacerbation. HISTORY OF PRESENT ILLNESS: Mr. Ramos is a 52-year-old male with a history of severe chronic pers istent asthma. I have seen him several times in the hospital in the past, but he has never been to [facility] for followup. He states over the last 2 or 3 days, he has had increasing shortness of br eath and wheezing. He says his nebulizer has become dysfunctional at home. He has had to use his mo [employer]'s nebulizer which apparently did not work very well either. Last night, came into the emergency room and started on noninvasive ventilation. He was given steroids and breathing treatments for his asthma exacerbation. PAST MEDICAL HISTORY: 1. Chronic persistent asthma. 2. Paranoid schizophrenia. 3. Diabetes mellitus. 4. Gastroesophageal reflux. 5. Chronic hepatitis C. 6. Hypertension. 7. Coronary artery disease. PAST SURGICAL HISTORY: Cardiac catheterization. ALLERGIES: None. SOCIAL HISTORY: Nonsmoker, lives at home. He is disabled, has a distant history of cocaine abuse. FAMILY MEDICAL HISTORY: Remarkable for heart disease. MEDICATIONS: Prior to admission, Symbicort 160/4.5 two puffs twice daily, gabapentin 300 mg b.i.d., ProAir HFA metered dose inhaler 2 puffs every 4 hours as needed, albuterol nebulization solution ever y 4 hours as needed, tramadol 50 mg 4 times daily as needed, Crestor 20 mg nightly, Protonix 40 mg da leatha, Buspirone 10 mg t.i.d., Procardia-XL 60 mg daily, Latuda 40 mg daily, detemir insulin 65 units d aily, and doxepin 50 mg nightly. REVIEW OF SYSTEMS: Remarkable for shortness of breath, wheezing, congestion, vigorous cough. Otherw ise, 12-point review of systems negative. PHYSICAL EXAMINATION: VITAL SIGNS: Temperature 97.4, pulse 95, respirations 20, O2 sat 96% on 2 liters, blood pressure 153 /84. GENERAL: He is awake and alert and in mild respiratory discomfort. HEENT: Pupils react. Sclerae icteric. Oropharynx clear. NECK: Without adenopathy or JVD. LUNGS: He has diffuse bilateral expiratory wheezes with a prolonged expiratory phase. CARDIAC: S1, S2 regular, without murmur. ABDOMEN: Soft, nontender, nondistended. EXTREMITIES: No clubbing, no edema. NEUROLOGIC: Grossly intact throughout. LABORATORY DATA: White blood cell count 8.6, hematocrit 40, platelet count 273. pH 7.40, pCO2 42, p O2 of 85. Sodium 139, potassium 3.7, chloride 105, CO2 of 22, BUN 13, creatinine 1.2, glucose 166. CPK was 730. ASSESSMENT: 1. Status asthmaticus. 2. History of other medical problems as listed above. RECOMMENDATIONS: 1. Continue care with nebulization treatments, IV steroids, and antibiotics. 2. Suspect he is probably still doing cocaine. I will ask him about this. If he denies any, may ne ed a tox screen.
[2018-03-10 15:23] LABS: Amphetamine Not Detected (NotDetected); Barbiturates Screen Not Detected (NotDetected); Benzodiazepine Screen Not Detected (NotDetected); Cocaine Metabolite Screen Not Detected (NotDetected); Medtox Reader # READER 1; Methadone Not Detected (NotDetected); Methamphetamine Not Detected (NotDetected); Opiate Screen Not Detected (NotDetected); Oxycodone Screen Not Detected (NotDetected); Phencyclidine (PCP) Not Detected (NotDetected); THC/Cannabinoid Screen Detected (NotDetected); Tricyclic Screen Not Detected (NotDetected)
[2018-03-10 15:24] LABS: Medtox Control Line Valid? VALID (VALID)
[2018-03-10] MEDS: hydrALAZINE 20 MG/ML VIAL SLOW IVP PRN (17:23)
[2018-03-11 05:05] LABS: Anion Gap 13 mmol/L (10-20); BUN (Urea Nitrogen) 19 mg/dL (8.4-25.7); Calc. Creatinine Clearance 91 mL/min (70-130); Calcium 9.3 mg/dL (7.8-10.44); Carbon Dioxide 23 mmol/L (22-29); Chloride 102 mmol/L (98-107); Estimated GFR-MDRD 79; Glucose 297 mg/dL (70-105); Potassium 4.6 mmol/L (3.5-5.1); Sodium 133 mmol/L (136-145)
[2018-03-11 05:24] LABS: #Lymphocytes 0.8 thou/uL (1.20-3.40); #Monocytes 0.7 thou/uL (0.11-0.59); %Basophils 0.1 % (0.0-1.0); %Eosinophils 0.1 % (0.0-10.0); %Lymphocytes 7.8 % (21.0-51.0); %Monocytes 6.6 % (0.0-10.0); %Neutrophils 85.5 % (42.0-75.0); Hemoglobin 13.3 g/dL (14.0-18.0); Mean Corpuscular HGB CONC 34.6 g/dL (32.0-36.0); Mean Corpuscular Volume 89.7 fL (78.0-98.0); Mean Platelet Volume 7.8 fL (7.4-10.4); Platelet Count 274 thou/uL (130-400); RBC Distribution Width 12.5 % (11.5-14.5); Red Blood Cell (RBC) Count 4.29 mill/uL (4.70-6.10); White Blood Cell (WBC) Count 10.5 thou/uL (4.8-10.8)
[2018-03-11] MEDS: Insulin Regular 300 UNITS/3 ML VIAL SC PRN ×4 (05:32→21:04)
--- NOTE | 2018-03-11 08:48 | PRG ---
DATE OF SERVICE: 03/11/2018 The patient is doing better. He is in no distress. PHYSICAL EXAMINATION: VITAL SIGNS: Temperature 98.2, pulse 99, respirations 16, O2 sat 96% on room air, blood pressure 170 /97. HEENT: Unremarkable. NECK: No JVD. LUNGS: Diffuse wheezing bilaterally, but overall better air movement. CARDIOVASCULAR: S1 and S2 regular. ABDOMEN: Soft, nontender. EXTREMITIES: No edema. Tox screen showed marijuana, but no evidence of cocaine. White blood cell count 10.5, hematocrit 38. 4, platelet count 274. Sodium 133, potassium 4.6, chloride 102, CO2 23, BUN 19, creatinine 1.1, gluc ose 297. ASSESSMENT: Asthma with exacerbation. PLAN: He can be transferred to the medical floor and continue steroids, antibiotics and nebulization treatments.
[2018-03-11] MEDS: guaiFENesin ER 600 MG TAB PO SCH ×2 (09:21→21:03)
[2018-03-11] MEDS: Docusate 100 MG CAP PO SCH ×2 (09:21→21:02)
[2018-03-11] MEDS: Famotidine 20 MG TAB PO SCH ×2 (09:23→21:03)
[2018-03-11] MEDS: Enoxaparin Sodium 40 MG/0.4 ML SYRINGE SC SCH (09:26)
[2018-03-11] MEDS: Insulin Glargine 20 UNITS in Pre-Filled Syringe 1 EACH SC SCH ×2 (09:29→21:03)
[2018-03-11] MEDS ORDERED: traMADol HCl 50 MG TAB PO PRN (09:50)
[2018-03-11] MEDS ORDERED: NIFEdipine XL 60 MG TAB PO SCH (10:00)
--- NOTE | 2018-03-11 13:23 | PDOC.PN ---
- Subjective Encounter Start Date: 03/11/18 Encounter Start Time: 11:24 -: old records requested/rev Pt seen and exmained, chart reviewed in its entirety, this is my frist visitg with this patient admitted AM 88 for Acute exacerbation of asthma, acute hypoxemic respiratory failure. Pt initally on biPAP, quickly removed on arrival to IMCU No F/C, no N/V/d/C. + cough, nonproductive, just had neb and still wheezing. No other complaints all systems reviewed and neg x as above - Objective Resuscitation Status: Resuscitation Status FULL:Full Resuscitation MAR Reviewed: Yes Vital Signs & Weight: Vital Signs (12 hours) Temp Pulse Resp BP BP Pulse Ox 03/11/18 11:47 100 171/88 H 03/11/18 11:46 98.6 F 99 24 H 171/88 H 97 03/11/18 10:33 96 20 96 03/11/18 08:00 98.2 F 99 16 98 03/11/18 07:32 98.2 F 99 16 170/97 H 96 03/11/18 06:21 96 03/11/18 06:10 83 16 96 03/11/18 03:59 98.2 F 94 20 175/88 H 93 L Weight Weight 195 lb I&O: 03/10/18 03/11/18 03/12/18 06:59 06:59 06:59 Intake Total 550 930 Output Total 250 1400 Balance 300 -470 Result Diagrams: 03/11/18 04:24 03/11/18 04:24 Additional Labs: Accuchecks 03/11/18 03/10/18 03/10/18 05:31 20:11 16:36 POC Glucose 263 H 298 H 277 H Radiology Reviewed by me: Yes EKG Reviewed by me: Yes Phys Exam - Physical Examination Constitutional: NAD HEENT: PERRLA, moist MMs, sclera anicteric, oral pharynx no lesions Neck: no nodes, no JVD, supple, full ROM Respiratory: no rales, no rhonchi diffuse expiratory wheezes, poor airmovement, prolonged expiration Cardiovascular: RRR, no significant murmur, no rub Gastrointestinal: soft, non-tender, no distention, positive bowel sounds Musculoskeletal: pulses present, edema present Neurological: non-focal, normal sensation, moves all 4 limbs Lymphatic: no nodes Psychiatric: normal affect, A&O x 3 Skin: no rash, normal turgor, cap refill <2 seconds Dx/Plan (1) Acute hypoxemic respiratory failure Code(s): J96.01 - ACUTE RESPIRATORY FAILURE WITH HYPOXIA Status: Acute (2) Marijuana dependence Code(s): F12.20 - CANNABIS DEPENDENCE, UNCOMPLICATED Status: Acute (3) Asthma exacerbation Code(s): J45.901 - UNSPECIFIED ASTHMA WITH (ACUTE) EXACERBATION Status: Acute Qualifiers: Asthma severity: severe Asthma persistence: unspecified Qualified Code(s) : J45.901 - Unspecified asthma with (acute) exacerbation (4) CAD (coronary artery disease), [place] coronary artery Code(s): I25.10 - ATHSCL HEART DISEASE OF [place] CORONARY ARTERY W/O ANG PCTRS Status: Chronic Qualifiers: [place] vs. transplanted heart: [place] heart Associated angina: without angina Qualified Code(s): I25.10 - Atherosclerotic heart disease of [place] coronary artery without angina pectoris (5) DM type 2 (diabetes mellitus, type 2) Status: Chronic Qualifiers: Diabetes mellitus fci insulin use: without superintendent [employer] use Diabetes mellitus complication status: with unspecified complications Qualified Code(s) : E11.8 - Type 2 diabetes mellitus with unspecified complications (6) Hepatitis C Code(s): B19.20 - UNSPECIFIED VIRAL HEPATITIS C WITHOUT HEPATIC COMA Status: Chronic Qualifiers: Viral hepatitis chronicity: chronic Hepatic coma status: without hepatic coma Qualified Code(s): B18.2 - Chronic viral hepatitis C (7) Hypertension Code(s): I10 - ESSENTIAL (PRIMARY) HYPERTENSION Status: Chronic Qualifiers: Hypertension type: essential hypertension Qualified Code(s): I10 - Essential (primary) hypertension (8) Obesity Code(s): E66.9 - OBESITY, UNSPECIFIED Status: Chronic (9) Paranoid schizophrenia Code(s): F20.0 - PARANOID SCHIZOPHRENIA Status: Chronic - Plan cont current plan of care, continue antibiotics, PT/OT, respiratory therapy, out of bed/ambulate * . abx, nebs, steroids, to floor per pulm
[2018-03-11] MEDS: hydrALAZINE 20 MG/ML VIAL SLOW IVP PRN (16:01)
[2018-03-11] MEDS: Acetaminophen 325 MG TAB PO PRN (16:01)
[2018-03-11] MEDS: Doxepin HCl 25 MG CAP PO SCH (21:02)
[2018-03-11] MEDS: Rosuvastatin 20 MG TAB PO SCH (21:03)
[2018-03-12 05:25] LABS: Anion Gap 12 mmol/L (10-20); BUN (Urea Nitrogen) 23 mg/dL (8.4-25.7); Calc. Creatinine Clearance 79 mL/min (70-130); Calcium 9.5 mg/dL (7.8-10.44); Carbon Dioxide 26 mmol/L (22-29); Chloride 99 mmol/L (98-107); Estimated GFR-MDRD 67; Glucose 474 mg/dL (70-105); Magnesium 2.4 mg/dL (1.6-2.6); Potassium 4.7 mmol/L (3.5-5.1); Sodium 132 mmol/L (136-145)
[2018-03-12] MEDS: Insulin Regular 300 UNITS/3 ML VIAL SC PRN ×4 (06:07→20:27)
[2018-03-12 06:48] LABS: Band 1 % (5-11); Hemoglobin 13.6 g/dL (14.0-18.0); Lymphocytes 5 % (21-51); MDiff Complete? YES; Mean Corpuscular HGB CONC 33.7 g/dL (32.0-36.0); Mean Corpuscular Hemoglobin 30.3 pg (27.0-31.0); Mean Corpuscular Volume 90.1 fL (78.0-98.0); Mean Platelet Volume 7.9 fL (7.4-10.4); Monocytes 3 % (0-10); Neutrophil 91 % (42-75); PLT Morphology Comment Appears Adequate; Platelet Count 279 thou/uL (130-400); RBC Distribution Width 12.6 % (11.5-14.5); RBC Morphology Normal; Red Blood Cell (RBC) Count 4.48 mill/uL (4.70-6.10); White Blood Cell (WBC) Count 10.2 thou/uL (4.8-10.8)
[2018-03-12] MEDS: Insulin Glargine 20 UNITS in Pre-Filled Syringe 1 EACH SC SCH (08:33)
[2018-03-12] MEDS: Lurasidone HCl 40 MG TABLET PO SCH (08:34)
[2018-03-12] MEDS: NIFEdipine XL 60 MG TAB PO SCH (08:34)
[2018-03-12] MEDS: Famotidine 20 MG TAB PO SCH ×2 (08:34→20:26)
[2018-03-12] MEDS: Docusate 100 MG CAP PO SCH ×2 (08:35→20:26)
[2018-03-12] MEDS: Enoxaparin Sodium 40 MG/0.4 ML SYRINGE SC SCH (08:35)
[2018-03-12] MEDS: guaiFENesin ER 600 MG TAB PO SCH ×2 (08:37→20:26)
--- NOTE | 2018-03-12 10:28 | PRG ---
DATE OF SERVICE: 03/12/2018 SUBJECTIVE: He is doing much better. He has been up and around the room without much difficulty. PHYSICAL EXAMINATION: VITAL SIGNS: Temperature 97.8, pulse 86, respirations 18, O2 sat is 98% on room air, and blood press ure 147/81. HEENT: Unremarkable. NECK: No adenopathy or JVD. LUNGS: A few expiratory wheezes, but overall better. CARDIAC: S1 and S2 regular. ABDOMEN: Soft. EXTREMITIES: No edema. LABORATORY DATA: Sodium 132, potassium 4.7, chloride 99, CO2 26, BUN 23, creatinine 1.4, glucose 414 . White count 10.2, hematocrit 48.4, platelet count 279. ASSESSMENT: Asthma with exacerbation. PLAN: I will go ahead and stop his IV steroids and place him on oral steroids his IV antibiotics hugh l be stopped and he will be converted to oral therapy. Hopefully, with going down the steroids, his blood sugar will begin to improve. I think he can go home as soon as tomorrow.
--- NOTE | 2018-03-12 11:10 | PDOC.PN ---
- Subjective Encounter Start Date: 03/12/18 Encounter Start Time: 09:40 sleeping soundly, o2 at 92% on RA. slightly prolonged expiration, exp wheezes present. Pt denies F/C, no N/V/d/C, no CP. cough better PT to call his [employer] company to seeif his new nebulizer is arranged. All systems reviewed and neg x as above - Objective Resuscitation Status: Resuscitation Status FULL:Full Resuscitation MAR Reviewed: Yes Vital Signs & Weight: Vital Signs (12 hours) Temp Pulse Resp BP Pulse Ox 03/12/18 11:06 97.9 F 94 19 143/89 H 100 03/12/18 10:11 92 16 95 03/12/18 08:34 86 03/12/18 07:50 97.9 F 86 18 03/12/18 07:28 97.9 F 86 18 147/81 H 95 03/12/18 07:09 85 16 97 03/12/18 03:46 98.8 F 108 H 18 116/68 94 L 03/12/18 02:18 99 16 97 03/12/18 00:55 94 L 03/11/18 23:53 98.3 F 108 H 18 127/72 90 L Weight Weight 195 lb I&O: 03/11/18 03/12/18 03/13/18 06:59 06:59 06:59 Intake Total 930 1762.5 Output Total 1400 1725 400 Balance -470 37.5 -400 Result Diagrams: 03/12/18 04:20 03/12/18 04:20 Additional Labs: Accuchecks 03/12/18 03/12/18 03/11/18 10:37 05:40 20:44 POC Glucose 519 H 414 H 316 H 03/11/18 03/11/18 16:49 10:41 POC Glucose 314 H 348 H Phys Exam - Physical Examination Constitutional: NAD HEENT: PERRLA, moist MMs, sclera anicteric, oral pharynx no lesions Neck: no nodes, no JVD, supple, full ROM Respiratory: no rales, no rhonchi, wheezing present Cardiovascular: RRR, no significant murmur, no rub Gastrointestinal: soft, non-tender, no distention, positive bowel sounds Musculoskeletal: no edema, pulses present Neurological: non-focal, normal sensation, moves all 4 limbs Lymphatic: no nodes Psychiatric: normal affect, A&O x 3 Skin: no rash, normal turgor, cap refill <2 seconds Dx/Plan (1) Acute hypoxemic respiratory failure Code(s): J96.01 - ACUTE RESPIRATORY FAILURE WITH HYPOXIA Status: Resolved (2) Marijuana dependence Code(s): F12.20 - CANNABIS DEPENDENCE, UNCOMPLICATED Status: Chronic (3) Asthma exacerbation Code(s): J45.901 - UNSPECIFIED ASTHMA WITH (ACUTE) EXACERBATION Status: Acute Qualifiers: Asthma severity: severe Asthma persistence: unspecified Qualified Code(s) : J45.901 - Unspecified asthma with (acute) exacerbation Comment: improving. anticipate D/C in 1-2 days. (4) CAD (coronary artery disease), [place] coronary artery Code(s): I25.10 - ATHSCL HEART DISEASE OF [place] CORONARY ARTERY W/O ANG PCTRS Status: Chronic Qualifiers: [place] vs. transplanted heart: [place] heart Associated angina: without angina Qualified Code(s): I25.10 - Atherosclerotic heart disease of [place] coronary artery without angina pectoris (5) DM type 2 (diabetes mellitus, type 2) Status: Chronic Qualifiers: Diabetes mellitus assisted insulin use: without assisted use Diabetes mellitus complication status: with unspecified complications Qualified Code(s) : E11.8 - Type 2 diabetes mellitus with unspecified complications Comment: sugars up with steroids, increase lantus (6) Hepatitis C Code(s): B19.20 - UNSPECIFIED VIRAL HEPATITIS C WITHOUT HEPATIC COMA Status: Chronic Qualifiers: Viral hepatitis chronicity: chronic Hepatic coma status: without hepatic coma Qualified Code(s): B18.2 - Chronic viral hepatitis C (7) Hypertension Code(s): I10 - ESSENTIAL (PRIMARY) HYPERTENSION Status: Chronic Qualifiers: Hypertension type: essential hypertension Qualified Code(s): I10 - Essential (primary) hypertension (8) Obesity Code(s): E66.9 - OBESITY, UNSPECIFIED Status: Chronic (9) Paranoid schizophrenia Code(s): F20.0 - PARANOID SCHIZOPHRENIA Status: Chronic - Plan * .
[2018-03-12] MEDS ORDERED: Insulin Glargine 20 UNITS in Pre-Filled Syringe 1 EACH SC SCH (11:30)
[2018-03-12] MEDS: predniSONE 20 MG TAB PO SCH (20:26)
[2018-03-12] MEDS: Doxepin HCl 25 MG CAP PO SCH (20:26)
[2018-03-12] MEDS: Rosuvastatin 20 MG TAB PO SCH (20:26)
[2018-03-13] MEDS: Insulin Regular 300 UNITS/3 ML VIAL SC PRN ×2 (05:30→12:09)
[2018-03-13] MEDS: NIFEdipine XL 60 MG TAB PO SCH (08:43)
[2018-03-13] MEDS: Famotidine 20 MG TAB PO SCH (08:43)
[2018-03-13] MEDS: Enoxaparin Sodium 40 MG/0.4 ML SYRINGE SC SCH (08:44)
[2018-03-13] MEDS: predniSONE 20 MG TAB PO SCH (08:44)
[2018-03-13] MEDS: Docusate 100 MG CAP PO SCH (08:44)
[2018-03-13] MEDS: guaiFENesin ER 600 MG TAB PO SCH (08:44)
[2018-03-13] MEDS: Lurasidone HCl 40 MG TABLET PO SCH (08:46)
[2018-03-13] MEDS ORDERED: Insulin Glargine 65 UNITS in Pre-Filled Syringe 1 EACH SC SCH (09:00)
[2018-03-13 11:24] VITALS: BP 158/85; TEMP 98.2
--- NOTE | 2018-03-13 13:34 | PRG ---
DATE OF SERVICE: 03/13/2018 SUBJECTIVE: Mr. Ramos feels better and back to his baseline and wants to go home. OBJECTIVE: VITAL SIGNS: Temperature is 97.9, pulse 91, blood pressure 147/89, and O2 sat 96% on room air. HEENT: Unremarkable. NECK: No adenopathy. CHEST: Clear. CARDIAC: S1, S2 regular. ABDOMEN: Soft. EXTREMITIES: No edema. ASSESSMENT: Asthma/chronic obstructive pulmonary disease exacerbation. PLAN: He is suitable for discharge. I would taper steroids over a week or two and finish out 5-7 da ys of antibiotics. He can continue his nebulization treatments and Symbicort at home.
--- NOTE | 2018-03-13 13:35 | DIS ---
DATE OF ADMISSION: 03/10/2018 DATE OF DISCHARGE: 03/13/2018 PRIMARY CARE PHYSICIAN: Otis Malloy. DISCHARGE DIAGNOSES: 1. Acute exacerbation of asthma. 2. Acute hypoxemic respiratory failure, present on admission, now resolved. 3. Marijuana abuse. 4. Essential hypertension. 5. History of gastroesophageal reflux disease. 6. Medical nonadherence. CONSULTATION: Pulmonary Critical Care, Dr. Fly Briceño. PROCEDURES: None. HISTORY AND PHYSICAL: Mr. Ramos is a 52-year-old -Italian male, [facility] breath. He had smoked some weed, as he does on occasion. He developed inc reasing asthma symptoms, but his nebulizer at home had been broken, so he came to the emergency depar tment. He was found to be hypoxemic and in respiratory distress. He was placed on BiPAP and nebulizer treat ments and steroids and we were called for admission. HOSPITAL COURSE: The patient was seen and examined by Dr. Farr and placed on in-patient status in t Intermediate Care Unit. He was quickly weaned off of BiPAP and was continued on oxygen and nebuli zer treatment, steroids, and antibiotics. Pulmonary Critical Care was consulted and agreed with the plan. He was watched over from 03/10/2018 to 03/12/2018, as he slowly improved. Ultimately, he was weaned off of oxygen on 03/12/2018. Finally, a bed was available in the floor and he was able to be transferred to the floor. Today, he is doing well on room air. He has no wheezing whatsoever. No p rolonged expiratory phase. He has made arrangement for temporary nebulizer to be at his house until his new is delivered early this next week, and otherwise stable for discharge. PHYSICAL EXAMINATION: The patient was seen and examined on date of discharge. Discharge plan and disposition were discussed with the patient [id number] at the bedside. DISCHARGE MEDICATIONS: 1. ProAir HFA 2 puffs q.4 hours p.r.n. 2. Buspirone 10 mg p.o. t.i.d. 3. Doxepin 50 mg p.o. at bedtime. 4. Gabapentin 300 mg p.o. b.i.d. 5. NovoLog sliding scale. 6. Levemir 65 units subcu daily. 7. [place] 40 mg p.o. daily. 8. Tramadol 50 mg p.o. q.i.d. p.r.n. pain. 9. Albuterol sulfate nebulizers q.4 hours p.r.n. 10. Symbicort 160/4.5 two puffs inhaled b.i.d. 11. Nifedipine 60 mg daily. 12. Protonix 40 mg daily. 13. Crestor 20 mg p.o. at bedtime. DISCHARGE CONDITION: Stable. DISPOSITION: Being discharged home via private vehicle. DISCHARGE DIET: Heart healthy diabetic diet recommended. DISCHARGE ACTIVITY: Per cardiopulmonary limits. FOLLOWUP APPOINTMENT: Primary care physician within a week.
== END 2018-03-13 18:09 | disposition home or self-care (01) | DRG 189 ==
LOC: ERS 21:39 → IMCU/EMU 03-10 00:30 → T4-B 03-12 14:17
PROVIDERS: ADMIT Internal Medicine; ATTEND Internal Medicine
DX: J96.01 Acute respiratory failure with hypoxia (principal); F20.0 Paranoid schizophrenia; J45.41 Moderate persistent asthma with (acute) exacerbation; I25.10 Atherosclerotic heart disease of native coronary artery without angina pectoris; I10 Essential (primary) hypertension; B18.2 Chronic viral hepatitis C; K21.9 Gastro-esophageal reflux disease without esophagitis; D64.9 Anemia, unspecified; E11.9 Type 2 diabetes mellitus without complications; F12.10 Cannabis abuse, uncomplicated; E66.9 Obesity, unspecified; Z68.28 Body mass index [BMI] 28.0-28.9, adult; Z82.49 Family history of ischemic heart disease and other diseases of the circulatory system
CPT/HCPCS: 36415; 36416; 71045; 80048; 80053; 80306; 82553; 82805; 83735; 84484; 85025; 94640; 94660; 94760; 96365; 96375; A4216; J0360; J1650; J1815; J1956; J2920; J2930; J3475; J7050; J7506; J7620

== ENCOUNTER 2018-04-12 01:34 | Inpatient (IN) | payer MEDICARE, OTHER ==
[2018-04-12] MEDS ORDERED: Magnesium Sulfate 2 GM/100 ML BAG ONE (01:54)
[2018-04-12] MEDS ORDERED: methylPREDNISolone Sod Succ/PF 125 MG/2 ML VIAL ONE (01:54)
[2018-04-12] MEDS ORDERED: Acetaminophen 325 MG TAB PO PRN ×2 (02:00→08:27)
[2018-04-12] MEDS ORDERED: Ondansetron HCl/PF 4 MG/2 ML Vial IVP PRN (02:00)
[2018-04-12] MEDS ORDERED: Ondansetron ODT 4 MG TAB SL PRN (02:00)
[2018-04-12] MEDS ORDERED: Ondansetron HCl/PF 4 MG/2 ML Vial ONE (02:03)
[2018-04-12 02:06] LABS: #Basophils 0.1 thou/uL (0.0-0.2); #Eosinphils 0.7 thou/uL (0.0-0.7); #Lymphocytes 2.2 thou/uL (1.20-3.40); #Monocytes 0.6 thou/uL (0.11-0.59); #Neutrophils 3.6 thou/uL (1.40-6.50); %Basophils 1.3 % (0.0-1.0); %Lymphocytes 30.6 % (21.0-51.0); %Monocytes 7.9 % (0.0-10.0); %Neutrophils 50.2 % (42.0-75.0); Hemoglobin 13.4 g/dL (14.0-18.0); Mean Corpuscular HGB CONC 34.5 g/dL (32.0-36.0); Mean Corpuscular Hemoglobin 31.2 pg (27.0-31.0); Mean Corpuscular Volume 90.4 fL (78.0-98.0); Mean Platelet Volume 7.5 fL (7.4-10.4); Platelet Count 246 thou/uL (130-400); RBC Distribution Width 12.8 % (11.5-14.5); Red Blood Cell (RBC) Count 4.29 mill/uL (4.70-6.10); White Blood Cell (WBC) Count 7.2 thou/uL (4.8-10.8)
[2018-04-12] MEDS ORDERED: Albuterol Sulfate 2.5 mg/3 ml Neb ONE ×3 (02:22)
[2018-04-12 02:28] LABS: ALT (SGPT) 34 U/L (8-55); AST (SGOT) 26 U/L (5-34); Alkaline Phosphatase 88 U/L (40-150); Anion Gap 15 mmol/L (10-20); BUN (Urea Nitrogen) 12 mg/dL (8.4-25.7); Bilirubin, Total 0.3 mg/dL (0.2-1.2); CK (CPK) 593 U/L (30-200); Calc. Creatinine Clearance 0 mL/min (70-130); Calcium 9.2 mg/dL (7.8-10.44); Carbon Dioxide 23 mmol/L (22-29); Chloride 104 mmol/L (98-107); Estimated GFR-MDRD 86; Globulin 3.4 g/dL (2.4-3.5); Glucose 192 mg/dL (70-105); Potassium 3.6 mmol/L (3.5-5.1); Protein, Total 7.4 g/dL (6.0-8.3); Sodium 138 mmol/L (136-145)
[2018-04-12 02:30] LABS: Troponin I Less than 0.010 ng/mL (< 0.028)
[2018-04-12 02:33] LABS: CKMB 8.2 ng/mL (0-6.6)
[2018-04-12 06:51] VITALS: BMI 29.1
[2018-04-12] MEDS: methylPREDNISolone Sod Succ/PF 125 MG/2 ML VIAL IVP SCH ×2 (07:35→10:30)
--- NOTE | 2018-04-12 07:42 | RAD ---
ONE VIEW CHEST: HISTORY: Asthma. Shortness of breath. COMPARISON: 03/09/18. FINDINGS: Normal cardiac silhouette. The pulmonary vessels and hilum are normal. Costophrenic angles are ray r. Mild hyperinflation. No consolidation or mass. No pneumothorax or osseous abnormalities. IMPRESSION: Mild hyperinflation. POS: [facility]
[2018-04-12] MEDS ORDERED: PROVENTIL INHALER 6.7 G (200 INHALATIONS) INH PRN (08:20)
[2018-04-12] MEDS ORDERED: Albuterol Sulfate 1.25 MG/3 ML NEB NEB PRN (08:20)
[2018-04-12] MEDS ORDERED: traMADol HCl 50 MG TAB PO PRN (08:20)
[2018-04-12] MEDS ORDERED: cloNIDine 0.1 MG TAB PO PRN (08:27)
[2018-04-12] MEDS ORDERED: Diabetic Tussin 200 MG/10 ML UDCUP PO PRN (08:27)
[2018-04-12] MEDS ORDERED: Calcium Carbonate 500 MG ChewTAB PO PRN (08:27)
[2018-04-12] MEDS ORDERED: Dextrose 50% Abboject 50 ML SYRINGE SLOW IVP PRN (08:27)
[2018-04-12] MEDS ORDERED: Nitroglycerin 0.4 MG TAB (25 Tab Bottle) SL PRN (08:27)
[2018-04-12] MEDS ORDERED: Benzonatate 100 MG CAP PO PRN (08:27)
[2018-04-12] MEDS ORDERED: hydrALAZINE 20 MG/ML VIAL SLOW IVP PRN (08:27)
[2018-04-12] MEDS ORDERED: Loratadine 10 MG TAB PO PRN (08:27)
[2018-04-12] MEDS ORDERED: Dextrose 5% in Water 1,000 ML IV PRN (08:27)
[2018-04-12] MEDS ORDERED: Mag-Al 1200 mg/1200 mg/30 ML UDCUP PO PRN (08:27)
[2018-04-12] MEDS ORDERED: Non-Formulary Item 1 EACH (Insulin Detemir 100 Units/Ml [Levemir] 65 UNITS) SC SCH (09:00)
[2018-04-12] MEDS: NIFEdipine XL 60 MG TAB PO SCH (10:12)
[2018-04-12] MEDS: guaiFENesin ER 600 MG TAB PO SCH ×2 (10:12→21:45)
[2018-04-12] MEDS: busPIRone HCl 10 MG TAB PO SCH ×3 (10:12→21:45)
[2018-04-12] MEDS: Gabapentin 300 MG CAP PO SCH ×2 (10:12→21:45)
[2018-04-12] MEDS: HumaLOG 300 UNITS/3 ML VIAL SC PRN ×4 (10:13→23:39)
[2018-04-12] MEDS: Insulin Glargine 65 UNITS in Pre-Filled Syringe 1 EACH SC SCH (12:49)
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
[2018-04-12] MEDS ORDERED: Furosemide 20 MG/2 ML VIAL SLOW IVP SCH (16:15)
[2018-04-12] MEDS ORDERED: Potassium Chloride 20 MEQ TAB PO SCH (16:15)
[2018-04-12] MEDS ORDERED: Albuterol Sulfate 2.5 mg/3 ml Neb NEB PRN (16:17)
[2018-04-12] MEDS ORDERED: Magnesium 2 GM/NS 0.9% 100 ML 2 GM in Premix Bag 1 BAG IVPB SCH (16:45)
--- NOTE | 2018-04-12 17:56 | CON ---
DATE OF CONSULTATION: 04/12/2018 SERVICE: Pulmonary Medicine. REASON FOR CONSULTATION: Asthma attack. HISTORY OF PRESENT ILLNESS: The patient is a 52-year-old male with past medical history significant for a bad asthma. Whenever he comes off the systemic steroids, he feels that he has frequent exacerbations. On discharge from the hospital previously, roughly 3 weeks ago, he did better for a period of time, but once steroid taper went away, he started having recurrence in symptoms. He had increasing wheezing, cough, congestion. He had coughing fits that were so severe, they would actually induce vomiting episodes. He frequently has horrendous to control acid reflux disease. His girlfriend had commented regularly that he has severe sleep apnea. He has been recommended to have this investigated previously, and declined that. I have rebroke that subject. He denies having any significant nasal symptoms. Prior to this encounter, he did not have any fevers or chills. He is bringing up a pale-yellow sputum. Otherwise, he is in his usual state of health. He indicates that he was given a nebulizer machine prescription, but was unable to pick it up until here recently. Once he got back on his nebulized medications, he felt that he had been too far behind and subsequently presented to the emergency department either way. Overnight, his breathing is much improved. He got a slug of steroids, and frequent nebulized medications as well as magnesium in the emergency department. Currently, I find him awake and comfortable. He is not in any apparent distress. Other than the breathing issues, he denies any chest pain, palpitations, orthopnea, lower extremity swelling, nausea, vomiting or diarrhea outside of his coughing events. PAST MEDICAL HISTORY: 1. Coronary artery disease. 2. Asthma, severe persistent. 3. Hypertension. 4. Gastroesophageal reflux disease. 5. Paranoid schizophrenia. 6. Hepatitis. PAST SURGICAL HISTORY: Cardiac catheterization. SOCIAL HISTORY: Negative for alcohol, tobacco or illicit drug use. He has no exposure to chemicals, dust, asbestos or tuberculosis. FAMILY HISTORY: Noncontributory. ALLERGIES: No known drug allergies. MEDICATIONS: List of inpatient medications were reviewed. He indicates that he is no longer taking Singulair in the outpatient setting, but cannot remember why it was previously discontinued. REVIEW OF SYSTEMS: General, head, ears, eyes, nose, throat, cardiovascular, respiratory, GI, , musculoskeletal, neurologic and skin is negative except as mentioned in the HPI. PHYSICAL EXAMINATION: VITAL SIGNS: Afebrile, pulse 90, blood pressure 189/91, respirations 20, saturation 95% on room air. GENERAL: The patient is awake, alert, no apparent distress. LUNGS: There is decent air entry. There is a prolonged expiratory phase. Polyphonic wheezing is present throughout bilateral lung oliveira. There is also very subtle crackles, which are minimal at the bibasilar regions. Rhonchi are present, but change with cough. HEART: Normal rate and regular. ABDOMEN: Soft, nontender, nondistended. Bowel sounds are positive. MUSCULOSKELETAL: No cyanosis or clubbing. There is no pitting in the bilateral lower extremities. NEUROLOGIC: Grossly nonfocal. LABORATORY DATA: WBC 7.2, hemoglobin 13.4, platelets 246,000. Basic metabolic profile is significant for a creatinine of 1.08. Basic metabolic profile, liver function studies are otherwise unremarkable. Troponin is negative x1 and BNP is 25.2. Blood sugars ranged from 192-418. Urine drug screen was previously positive for cannabinoids. IMAGING: Chest x-ray demonstrates no acute cardiopulmonary abnormality. There is minimal hyperinflation present. ASSESSMENT: 1. Asthma with acute exacerbation. 2. Gastroesophageal reflux disease. 3. Obstructive sleep apnea, suspected. DISCUSSION AND PLAN: I will put him on 40 mg of prednisone on a daily basis. His IV medications will be interrupted. Once again, he will need a 14-day steroid taper. Antibiotics can be discontinued. Home inhaler and frequent nebulized medications will be continued. I will add Singulair for the time being. I have encouraged him to look into sleep apnea in the outpatient setting with the assistance of Dr. Briceño. We will continue to treat acid reflux disease, but we have also discussed acid reflux precautions, which he should follow up for essentially the rest of his life. Dr. Briceño will assume care in the morning. 70 minutes have been devoted to this patient in various activities. I personally reviewed all imaging studies and laboratory data noted within this document. For fifty percent of this time, I was interacting with the patient at the bedside or coordinating care with the care team. For the remainder of the time I was immediately available to the patient in the hospital unit. TIFFANIE
[2018-04-12] MEDS: Mometasone/Formoterol 120 PUFF INHALER INH SCH (19:05)
[2018-04-12] MEDS: Rosuvastatin 20 MG TAB PO SCH (21:46)
[2018-04-12] MEDS: Montelukast Sodium 10 mg Tablet PO SCH (21:46)
[2018-04-12] MEDS: Doxepin HCl 25 MG CAP PO SCH (23:39)
[2018-04-13] MEDS: Mometasone/Formoterol 120 PUFF INHALER INH SCH ×2 (07:50→19:01)
[2018-04-13] MEDS: Insulin Glargine 65 UNITS in Pre-Filled Syringe 1 EACH SC SCH (09:00)
[2018-04-13] MEDS: guaiFENesin ER 600 MG TAB PO SCH ×2 (09:00→20:56)
[2018-04-13] MEDS ORDERED: Furosemide 20 MG/2 ML VIAL SLOW IVP SCH (09:00)
[2018-04-13] MEDS: busPIRone HCl 10 MG TAB PO SCH ×3 (09:00→20:56)
[2018-04-13] MEDS: NIFEdipine XL 60 MG TAB PO SCH (09:00)
[2018-04-13] MEDS: Gabapentin 300 MG CAP PO SCH ×2 (09:00→20:57)
[2018-04-13] MEDS: Lurasidone HCl 40 MG TABLET PO SCH (10:00)
[2018-04-13] MEDS: HumaLOG 300 UNITS/3 ML VIAL SC PRN ×3 (11:11→20:57)
--- NOTE | 2018-04-13 11:23 | PRG ---
DATE OF SERVICE: 04/13/2018 Mr. Ramos is doing better today, had no acute complaints. PHYSICAL EXAMINATION: VITAL SIGNS: He is afebrile. Vital signs stable. HEENT: Unremarkable. NECK: No JVD. LUNGS: He has mild end expiratory wheeze. CARDIOVASCULAR: S1 and S2 regular. ABDOMEN: Soft. EXTREMITIES: No edema. ASSESSMENT: Asthma with exacerbation. PLAN: Continue steroids, nebs, breathing treatments. We will follow with you.
--- NOTE | 2018-04-13 13:11 | PDOC.PN ---
- Subjective Encounter Start Date: 04/13/18 Encounter Start Time: 13:09 Subjective: much less sob - Objective MAR Reviewed: Yes Vital Signs & Weight: Vital Signs (12 hours) Temp Pulse Resp BP Pulse Ox 04/13/18 11:58 97.7 F 101 H 26 H 159/90 H 97 04/13/18 10:48 101 H 16 04/13/18 10:31 97 04/13/18 07:50 95 20 97 04/13/18 04:00 98.4 F 100 20 151/89 H 96 04/13/18 02:30 95 18 99 Weight Weight 203 lb 4 oz I&O: 04/12/18 04/13/18 04/14/18 06:59 06:59 06:59 Intake Total 900 Output Total 1200 Balance -300 Result Diagrams: 04/12/18 01:55 04/12/18 01:55 Additional Labs: Accuchecks 04/13/18 04/12/18 04/12/18 05:19 20:52 16:35 POC Glucose 220 H 263 H 319 H Phys Exam - Physical Examination Neck: no JVD post wheezing Cardiovascular: RRR, no significant murmur Gastrointestinal: soft, non-tender Musculoskeletal: no edema Dx/Plan (1) Acute respiratory failure Code(s): J96.00 - ACUTE RESPIRATORY FAILURE, UNSP W HYPOXIA OR HYPERCAPNIA Status: Acute Qualifiers: Respiratory failure complication: hypoxia Qualified Code(s): J96.01 - Acute respiratory failure with hypoxia (2) Asthma exacerbation Code(s): J45.901 - UNSPECIFIED ASTHMA WITH (ACUTE) EXACERBATION Status: Acute Qualifiers: Asthma severity: severe Comment: improving. anticipate D/C in 1-2 days. (3) Cardiomyopathy, nonischemic Code(s): I42.8 - OTHER CARDIOMYOPATHIES Status: Chronic (4) CAD (coronary artery disease), [place] coronary artery Code(s): I25.10 - ATHSCL HEART DISEASE OF [place] CORONARY ARTERY W/O ANG PCTRS Status: Chronic Qualifiers: [place] vs. transplanted heart: [place] heart Associated angina: without angina Qualified Code(s): I25.10 - Atherosclerotic heart disease of [place] coronary artery without angina pectoris (5) DM type 2 (diabetes mellitus, type 2) Status: Chronic Qualifiers: Diabetes mellitus superintendent container terminal insulin use: with superintendent container terminal use Diabetes mellitus complication status: without complication Qualified Code(s): E11.9 - Type 2 diabetes mellitus without complications; Z79.4 - intermediate card tender (current) use of insulin Comment: sugars up with steroids, increase lantus (6) Diabetes type 2, uncontrolled Code(s): E11.65 - TYPE 2 DIABETES MELLITUS WITH HYPERGLYCEMIA Status: Chronic (7) Hepatitis C Code(s): B19.20 - UNSPECIFIED VIRAL HEPATITIS C WITHOUT HEPATIC COMA Status: Chronic Qualifiers: Viral hepatitis chronicity: chronic (8) Hypertension Code(s): I10 - ESSENTIAL (PRIMARY) HYPERTENSION Status: Chronic Qualifiers: Hypertension type: essential hypertension - Plan cont agressive steroids, nebs etc -: cont accu/ss/levemir * .
[2018-04-13] MEDS ORDERED: Polyethylene Glycol 3350 17 GM Packet PO SCH (20:00)
[2018-04-13] MEDS: Doxepin HCl 25 MG CAP PO SCH (20:56)
[2018-04-13] MEDS: Montelukast Sodium 10 mg Tablet PO SCH (20:57)
[2018-04-13] MEDS: Rosuvastatin 20 MG TAB PO SCH (20:57)
[2018-04-14] MEDS: HumaLOG 300 UNITS/3 ML VIAL SC PRN ×2 (05:45→12:12)
--- NOTE | 2018-04-14 07:28 | PDOC.PN ---
- Subjective Encounter Start Date: 04/14/18 Encounter Start Time: 07:26 Subjective: much les sob - Objective MAR Reviewed: Yes Vital Signs & Weight: Vital Signs (12 hours) Temp Pulse Resp BP Pulse Ox 04/14/18 04:00 98.0 F 100 18 144/91 H 97 04/14/18 02:29 98 16 98 04/14/18 00:36 97 04/14/18 00:00 97.9 F 97 18 145/85 H 97 04/13/18 21:46 105 H 20 97 04/13/18 20:00 98.0 F 96 20 141/89 H 97 Weight Weight 203 lb 4 oz I&O: 04/13/18 04/14/18 04/15/18 06:59 06:59 06:59 Intake Total 900 Output Total 1200 600 Balance -300 -600 Result Diagrams: 04/12/18 01:55 04/12/18 01:55 Additional Labs: Accuchecks 04/14/18 04/13/18 04/13/18 05:42 20:28 16:41 POC Glucose 356 H 283 H 384 H Phys Exam - Physical Examination Neck: no JVD wheezes all [place] Cardiovascular: RRR, no significant murmur Gastrointestinal: soft, non-tender, positive bowel sounds Musculoskeletal: no edema Dx/Plan (1) Acute respiratory failure Code(s): J96.00 - ACUTE RESPIRATORY FAILURE, UNSP W HYPOXIA OR HYPERCAPNIA Status: Acute Qualifiers: Respiratory failure complication: hypoxia Qualified Code(s): J96.01 - Acute respiratory failure with hypoxia (2) Asthma exacerbation Code(s): J45.901 - UNSPECIFIED ASTHMA WITH (ACUTE) EXACERBATION Status: Acute Qualifiers: Asthma severity: severe Comment: improving. anticipate D/C in 1-2 days. (3) Cardiomyopathy, nonischemic Code(s): I42.8 - OTHER CARDIOMYOPATHIES Status: Chronic (4) CAD (coronary artery disease), [place] coronary artery Code(s): I25.10 - ATHSCL HEART DISEASE OF [place] CORONARY ARTERY W/O ANG PCTRS Status: Chronic Qualifiers: [place] vs. transplanted heart: [place] heart Associated angina: without angina Qualified Code(s): I25.10 - Atherosclerotic heart disease of [place] coronary artery without angina pectoris (5) DM type 2 (diabetes mellitus, type 2) Status: Chronic Qualifiers: Diabetes mellitus senior care insulin use: with senior care use Diabetes mellitus complication status: without complication Qualified Code(s): E11.9 - Type 2 diabetes mellitus without complications; Z79.4 - keno terminal operator (current) use of insulin Comment: sugars up with steroids, increase lantus (6) Diabetes type 2, uncontrolled Code(s): E11.65 - TYPE 2 DIABETES MELLITUS WITH HYPERGLYCEMIA Status: Chronic (7) Hepatitis C Code(s): B19.20 - UNSPECIFIED VIRAL HEPATITIS C WITHOUT HEPATIC COMA Status: Chronic Qualifiers: Viral hepatitis chronicity: chronic (8) Hypertension Code(s): I10 - ESSENTIAL (PRIMARY) HYPERTENSION Status: Chronic Qualifiers: Hypertension type: essential hypertension - Plan improving but anxious to go home -: agreed to FU later today, cont current agressive tx with nebs, long acting -: shital maria * .
[2018-04-14] MEDS: NIFEdipine XL 60 MG TAB PO SCH (08:13)
[2018-04-14] MEDS: Lurasidone HCl 40 MG TABLET PO SCH (08:13)
[2018-04-14] MEDS: Gabapentin 300 MG CAP PO SCH (08:13)
[2018-04-14] MEDS: busPIRone HCl 10 MG TAB PO SCH (08:13)
[2018-04-14] MEDS: guaiFENesin ER 600 MG TAB PO SCH (08:13)
[2018-04-14] MEDS: Mometasone/Formoterol 120 PUFF INHALER INH SCH (08:22)
[2018-04-14] MEDS ORDERED: Polyethylene Glycol 3350 17 GM Packet PO SCH (09:00)
[2018-04-14] MEDS: Insulin Glargine 65 UNITS in Pre-Filled Syringe 1 EACH SC SCH (09:07)
--- NOTE | 2018-04-14 11:39 | PRG ---
DATE OF SERVICE: 04/14/2018 The patient is feeling better, has no acute complaints. PHYSICAL EXAMINATION: VITAL SIGNS: Temperature is 98.4, pulse 93, respirations 16, O2 sat 98% on room air, blood pressure 155/94. HEENT: Unremarkable. NECK: No JVD. LUNGS: Very faint wheezing. CARDIAC: S1 and S2 regular. ABDOMEN: Soft. EXTREMITIES: No edema. ASSESSMENT: Asthma with exacerbation. PLAN: I think he is suitable for discharge. He should go home on a tapered dose of steroids over 2 weeks, his Symbicort, ProAir, and the albuterol nebs. He can see me in the office in 2-3 weeks.
[2018-04-14 11:42] VITALS: BP 165/90; TEMP 98.6
--- NOTE | 2018-04-14 16:33 | DIS ---
DATE OF ADMISSION: 04/12/2018 DATE OF DISCHARGE: 04/14/2018 TRANSFER OF CARE PRIMARY CARE PROVIDER: [facility]. DISCHARGE DISPOSITION: Home. FINAL DIAGNOSES: Acute exacerbation of asthma, hepatitis C, chronic diabetes mellitus type 2, hypert ension. DISCHARGE MEDICATIONS: Doxepin 50 mg at bedtime, Symbicort 160/4.5 two puffs b.i.d., Albuterol ProAi r HFA 2 puffs q.4 hours p.r.n., albuterol 0.63 nebs q.4 hours p.r.n., prednisone 40 mg a day for 1 we ek, then 30 mg a day for 1 week, then 20 mg a day for 1 week, then 1 mg a day for 1 week, Crestor 20 mg at bedtime, Protonix 40 mg a day, nifedipine 60 mg a day, Latuda 40 mg a day, detemir insulin 65 u nits at bedtime, gabapentin 300 mg twice a day, tramadol 50 mg p.o. b.i.d. p.r.n. ALLERGIES: No known drug allergies. PENDING AT THE TIME OF DISCHARGE: Nothing. CODE STATUS: Full. HOSPITAL COURSE: The patient was admitted with acute exacerbation of asthma, treated aggressively wi nebs, steroids. He was seen in consultation by Dr. Kendall Shaver for Dr. Fly Briceño. He is d oing well at the present time. He is being discharged to follow up with PCP in 1 week. Follow up [facility] Dr. Briceño in 2-3 weeks. PERTINENT LABORATORY DATA: CBC unremarkable. Blood sugars were elevated due to steroids. Comp meta bolic profile unremarkable except for a blood sugar of 192 and a CK of 593. Chest x-ray no infiltrat e, no CHF, no cardiomegaly. The patient is doing well at the time of discharge, was very desirous of going home and has been discharged.
== END 2018-04-14 15:51 | disposition home or self-care (01) | DRG 202 ==
LOC: ERS 01:34 → 2SE 06:37
PROVIDERS: ADMIT Internal Medicine; ATTEND Internal Medicine
DX: J45.901 Unspecified asthma with (acute) exacerbation (principal); J96.01 Acute respiratory failure with hypoxia; F20.0 Paranoid schizophrenia; I42.9 Cardiomyopathy, unspecified; I10 Essential (primary) hypertension; K21.9 Gastro-esophageal reflux disease without esophagitis; I25.10 Atherosclerotic heart disease of native coronary artery without angina pectoris; B19.20 Unspecified viral hepatitis C without hepatic coma; E11.65 Type 2 diabetes mellitus with hyperglycemia; G47.33 Obstructive sleep apnea (adult) (pediatric)
CPT/HCPCS: 36416; 71045; 80053; 82553; 83880; 84484; 85025; 90471; 90732; 93005; 94640; 94644; 94760; A4216; G0009; J0360; J1940; J2405; J2920; J2930; J3475; J7611; J7620

== ENCOUNTER 2018-05-26 22:32 | Inpatient (IN) | payer OTHER ==
[2018-05-26] MEDS ORDERED: Albuterol Sulfate 2.5 mg/3 ml Neb ONE ×2 (23:01)
[2018-05-26] MEDS ORDERED: Albuterol Sulfate 2.5 mg/0.5 ml Neb ONE (23:01)
[2018-05-26 23:10] LABS: ALV-art Gradient -72.135 (0-20); Actual Bicarbonate (HCO3a) 20.3 mEq/L (22-28); Base Excess (BEa) -3.8 mEq/L (-2.0 to +3.0); CO2 Tension 34.3 mmHg (35.0-45.0); Calcium, Ionized 1.14 mmol/L (1.12-1.30); Carboxyhemoglobin (COHb) 0.4 gm% (0.0-3.0); Hemoglobin (Hb) 13.8 g/dL (14.0-18.0); O2 Tension (PaO2) 228.9 mmHg (80.0-100.0); Potassium - ABG Lab 3.79 mmol/L (3.70-5.30); Puncture Site LBR; pH, Arterial 7.39 (7.35-7.45)
--- NOTE | 2018-05-26 23:17 | RAD ---
PORTABLE AP CHEST X-RAY 05/26/18 HISTORY: Shortness of breath, history of asthma. COMPARISON: 04/12/18. FINDINGS: The cardiac silhouette and pulmonary vasculature are within normal limits. The lungs remain clear. Th ere are degenerative changes seen in the spine. There has been no interval change from the prior exam . IMPRESSION: No acute cardiopulmonary process. POS: [facility]
[2018-05-26 23:25] LABS: #Basophils 0.1 thou/uL (0.0-0.2); #Eosinphils 0.9 thou/uL (0.0-0.7); #Lymphocytes 1.5 thou/uL (1.20-3.40); #Monocytes 1.6 thou/uL (0.11-0.59); #Neutrophils 7.3 thou/uL (1.40-6.50); %Basophils 0.9 % (0.0-1.0); %Eosinophils 7.6 % (0.0-10.0); %Lymphocytes 13.1 % (21.0-51.0); %Monocytes 13.9 % (0.0-10.0); %Neutrophils 64.4 % (42.0-75.0); Hemoglobin 13.6 g/dL (14.0-18.0); Mean Corpuscular HGB CONC 33.1 g/dL (32.0-36.0); Mean Corpuscular Hemoglobin 29.8 pg (27.0-31.0); Mean Corpuscular Volume 89.9 fL (78.0-98.0); Mean Platelet Volume 7.7 fL (7.4-10.4); Platelet Count 270 thou/uL (130-400); RBC Distribution Width 13.6 % (11.5-14.5); Red Blood Cell (RBC) Count 4.55 mill/uL (4.70-6.10); White Blood Cell (WBC) Count 11.3 thou/uL (4.8-10.8)
[2018-05-26 23:36] LABS: CKMB 3.1 ng/mL (0-6.6); Troponin I 0.015 ng/mL (< 0.028)
[2018-05-26 23:39] LABS: ALT (SGPT) 44 U/L (8-55); AST (SGOT) 33 U/L (5-34); Albumin 3.7 g/dL (3.5-5.0); Alkaline Phosphatase 84 U/L (40-150); Anion Gap 13 mmol/L (10-20); BUN (Urea Nitrogen) 8 mg/dL (8.4-25.7); Bilirubin, Total 0.3 mg/dL (0.2-1.2); CK (CPK) 421 U/L (30-200); Calc. Creatinine Clearance 0 mL/min (70-130); Calcium 8.7 mg/dL (7.8-10.44); Carbon Dioxide 21 mmol/L (22-29); Chloride 103 mmol/L (98-107); Estimated GFR-MDRD 69; Globulin 3.6 g/dL (2.4-3.5); Glucose 224 mg/dL (70-105); Lipase 23 U/L (8-78); Protein, Total 7.3 g/dL (6.0-8.3); Sodium 133 mmol/L (136-145)
[2018-05-26] MEDS ORDERED: Magnesium 2 GM/50 ML BAG (IN WATER) ONE (23:45)
[2018-05-26] MEDS ORDERED: Dexamethasone 10 MG/ML VIAL ONE (23:45)
[2018-05-27] MEDS ORDERED: Ondansetron PF 4 MG/2 ML Vial IVP PRN ×2 (00:43→08:18)
[2018-05-27] MEDS ORDERED: Ondansetron ODT 4 MG TAB SL PRN (00:43)
[2018-05-27] MEDS ORDERED: Sodium Chloride 0.9% 1,000 ML IV SCH (00:45)
[2018-05-27 00:55] LABS: Bilirubin Negative (Negative); Blood, Urine Negative (Negative); Clarity CLEAR (Clear); Glucose, Urine (Dipstick) 250 mg/dL (Negative); Leukocyte Negative (Negative); Nitrite Negative (Negative); Protein, Urine (Dipstick) Negative (Neg-Trace); Specific Gravity, Urine 1.007 (1.002-1.036); pH, Urine 5.5 (5.0-9.0)
[2018-05-27 01:56] VITALS: BMI 29.1
[2018-05-27] MEDS ORDERED: Dextrose 5% in Water 1,000 ML IV PRN (02:50)
[2018-05-27] MEDS ORDERED: Dextrose 50% Abboject 50 ML SYRINGE SLOW IVP PRN (02:50)
[2018-05-27] MEDS ORDERED: Acetaminophen 325 MG TAB PO PRN (02:58)
[2018-05-27 02:59] LABS: #Eosinphils 0.1 thou/uL (0.0-0.7); #Lymphocytes 0.5 thou/uL (1.20-3.40); #Monocytes 0.5 thou/uL (0.11-0.59); %Basophils 0.3 % (0.0-1.0); %Eosinophils 0.9 % (0.0-10.0); %Lymphocytes 4.6 % (21.0-51.0); %Monocytes 4.5 % (0.0-10.0); %Neutrophils 89.7 % (42.0-75.0); Hemoglobin 12.6 g/dL (14.0-18.0); Mean Corpuscular HGB CONC 32.6 g/dL (32.0-36.0); Mean Corpuscular Hemoglobin 29.4 pg (27.0-31.0); Mean Corpuscular Volume 90.2 fL (78.0-98.0); Mean Platelet Volume 7.4 fL (7.4-10.4); Platelet Count 255 thou/uL (130-400); RBC Distribution Width 13.6 % (11.5-14.5); Red Blood Cell (RBC) Count 4.29 mill/uL (4.70-6.10)
[2018-05-27 03:13] LABS: Lactic Acid 1.5 mmol/L (0.5-2.2)
[2018-05-27 03:18] LABS: ALT (SGPT) 40 U/L (8-55); AST (SGOT) 28 U/L (5-34); Albumin 3.6 g/dL (3.5-5.0); Alkaline Phosphatase 75 U/L (40-150); Anion Gap 12 mmol/L (10-20); BUN (Urea Nitrogen) 9 mg/dL (8.4-25.7); Bilirubin, Total 0.4 mg/dL (0.2-1.2); Calc. Creatinine Clearance 95 mL/min (70-130); Calcium 8.5 mg/dL (7.8-10.44); Carbon Dioxide 21 mmol/L (22-29); Chloride 106 mmol/L (98-107); Estimated GFR-MDRD 79; Globulin 3.2 g/dL (2.4-3.5); Glucose 228 mg/dL (70-105); Potassium 4.3 mmol/L (3.5-5.1); Protein, Total 6.8 g/dL (6.0-8.3); Sodium 135 mmol/L (136-145)
--- NOTE | 2018-05-27 03:58 | PDOC.EVN ---
Event Note - Event Note Event Note: h&p dictation #[id number]
--- NOTE | 2018-05-27 04:47 | HP ---
PRIMARY CARE PHYSICIAN: Dr. Broderick. OUTPATIENT TRAP OPERATOR: Dr. Briceño. CHIEF COMPLAINT: Shortness of breath. HISTORY OF PRESENT ILLNESS: This is a 52-year-old male with a prior history of asthma exacerbation and recent hospitalization for the same on mid 04/14/2018. The patient states that he has been feeling progressively short of breath over the last 3-4 days at home. He presented to the emergency department with a chief complaint of dyspnea and observed increased work of breathing in the emergency department. ER ABG was demonstrated reasonable values; however, due to the increased work of breathing, the patient was placed on BiPAP. In the ER , Decadron, DuoNebs, empiric Levaquin, and BiPAP were used to help the patient with his respiratory status. At the time of my evaluation, the patient is in the IMCU with improved work of breathing and generally feels somewhat improved. He is able to talk over the BiPAP at this point in time. REVIEW OF SYSTEMS: As per HPI. Constitutional: No fevers, no chills. HEENT: Currently has a low-grade headache. Denies any dizziness or vision changes. Cardiovascular: Denies any chest pain or chest pressure. Respiratory: As per HPI. Gastrointestinal: The patient endorses feeling hungry. When he has the shortness of breath, he will sometimes also feel nauseated. Denies any current abdominal pain or issues with diarrhea or constipation. Genitourinary: Denies any dysuria. Musculoskeletal: Denies any new myalgias or arthralgias. Remainder of the review of systems otherwise negative. PAST MEDICAL HISTORY: As per HPI. 1. Significant for asthma 2. Coronary artery disease. 3. Hypertension. 4. Gastroesophageal reflux disease. 5. Hepatitis C. 6. Paranoid schizophrenia. 7. Status post cardiac catheterization. HOME MEDICATIONS: Please see the EMR for full details. The patient's current list includes: 1. Tramadol 50 mg p.o. q.i.d. p.r.n. 2. The patient was discharged on a prednisone taper at the last discharge. The patient has not followed up with Pulmonary Medicine from his last discharge and I suspect that he has completed his taper. 3. Guaifenesin 1200 mg p.o. q.12 hours. 4. Buspirone 10 mg p.o. t.i.d. 5. Rosuvastatin 20 mg p.o. at bedtime. 6. Pantoprazole 40 mg p.o. daily. 7. Nifedipine 60 mg p.o. daily. 8. Lurasidone 40 mg p.o. daily. 9. DuoNeb 3 mL nebs q.4 hours. 10. Insulin Levemir 65 units subcu daily. 11. Gabapentin 300 mg p.o. b.i.d. 12. Doxepin 50 mg p.o. at bedtime. 13. Symbicort 2 puffs inhalation b.i.d. 14. Albuterol 2 puffs inhalation q.4 hours p.r.n. ALLERGIES: No known drug allergies. FAMILY HISTORY: Significant for cardiac disease in multiple family members. SOCIAL HISTORY: The patient denies any active alcohol or drug use. Does have a remote history of marijuana and cocaine use. PHYSICAL EXAMINATION: GENERAL: The patient is alert, awake, no acute distress, seated in the hospital bed with a BiPAP mask in place. HEENT: Equal ocular motions are intact. The patient is able to converse in brief phrases while wearing the BiPAP. CARDIOVASCULAR: S1, S2, prominent BiPAP sounds, overlying cardiac sounds. Pulses 2+ bilateral upper extremities, no pitting pedal edema. RESPIRATORY: Predominantly BiPAP sounds. Air movement bilaterally. ABDOMEN: Positive bowel sounds, soft, nontender to palpation. MUSCULOSKELETAL: Moving all 4 extremities independently. LABORATORY DATA AND IMAGING: On 05/26/2018, chest x-ray, impression, "no acute cardiopulmonary process." WBC 10.0, hemoglobin 12.6, hematocrit 38.7, platelets 255. ABG from 05/26/2018, pH of 7.39, pCO2 of 34.3, pO2 of 228.9. CMP: Sodium 135, bicarbonate 21, BUN 9, creatinine 1.16, glucose 228. Lactic acid initially 3.0 subsequent 1.5, calcium 8.5, total bilirubin 0.4, AST 28, ALT 40, alkaline phosphatase 75. Initial troponin 0.015. BNP 18.8, total protein 6.8, albumin 3.6, lipase 23. UA is significant for 250 of glucose. ASSESSMENT AND PLAN: A 52-year-old male presented with a chief complaint of shortness of breath. 1. Shortness of breath, predominantly with dyspnea and increased work of breathing, concern for acute asthma exacerbation. The patient has received steroids, nebulizers, empiric antibiotics in the ER, and is currently on a BiPAP. If the patient requires any continued BiPAP use would consider repeating an ABG. Appreciate pulmonary consultation. As the patient appears to be clinically improved, we will deescalate his steroids from Decadron which was given in the emergency department to 40 mg of prednisone in the morning. Continue with sliding scale insulin on top of the patient's home regimen indicates he has some persistent hyperglycemia secondary to steroid use. Continue with DuoNeb treatments. We will hold off on continuing empiric antibiotics unless there are any other signs or symptoms consistent with an infectious etiology. Discussed with the patient the importance of compliance with outpatient Pulmonary as well. 2. Prior history of coronary artery disease, anticipate continue the patient on his home regimen. 3. Type 2 diabetes. Continue the patient on his home regimen. Please see the discussion above regarding anticipated hyperglycemia. 4. Psychiatric issues. Continue the patient on his home regimen and continue to closely monitor. 5. Hypertension. Continue the patient on his home regimen and closely monitor. 6. Diet: Cardiac, diabetic as tolerated once respiratory status allows. 7. Activity: As tolerated. 8. Deep venous thrombosis prophylaxis with enoxaparin. 9. The patient is currently FULL CODE. Admitted to IMCU. Greater than 45 minutes critical care time spent with the patient at bedside. The patient's care plan has been discussed with bedside respiratory therapy and nursing. TIFFANIE
[2018-05-27] MEDS ORDERED: HumaLOG 300 UNITS/3 ML VIAL SC PRN ×2 (07:26→08:22)
[2018-05-27] MEDS ORDERED: predniSONE 20 MG TAB PO SCH (08:00)
[2018-05-27] MEDS ORDERED: Cepastat Lozenges 1 LOZ PO PRN (08:18)
[2018-05-27] MEDS ORDERED: Ondansetron ODT 4 MG TAB PO PRN (08:18)
[2018-05-27] MEDS ORDERED: Sodium Chloride 0.65% Nasal 44 ML BOT EA NARE PRN (08:18)
[2018-05-27] MEDS ORDERED: Loperamide HCl 2 MG CAP PO PRN (08:18)
[2018-05-27] MEDS ORDERED: hydrALAZINE 20 MG/ML VIAL SLOW IVP PRN (08:18)
[2018-05-27] MEDS ORDERED: Artificial Tears 18 DROP/0.9 ML EA EYE PRN (08:18)
[2018-05-27] MEDS ORDERED: Acetaminophen 500 MG TAB PO PRN (08:18)
[2018-05-27] MEDS ORDERED: Eucerin (Mineral Oil/Petrolatum,White) 30 gm Jar TOP PRN (08:18)
[2018-05-27] MEDS ORDERED: Diabetic Tussin 200 MG/10 ML UDCUP PO PRN (08:18)
[2018-05-27] MEDS ORDERED: Loratadine 10 MG TAB PO PRN (08:18)
[2018-05-27] MEDS ORDERED: cloNIDine 0.1 MG TAB PO PRN (08:18)
[2018-05-27] MEDS ORDERED: traMADol HCl 50 MG TAB PO PRN (08:20)
[2018-05-27] MEDS ORDERED: Dexamethasone 10 MG/ML VIAL SLOW IVP SCH (09:00)
[2018-05-27] MEDS ORDERED: Non-Formulary Item 1 EACH (Insulin Detemir 100 Units/Ml [Levemir] 65 UNITS) SC SCH (09:00)
[2018-05-27] MEDS ORDERED: Famotidine/PF 20 mg/2ml Vial SLOW IVP SCH (09:00)
[2018-05-27] MEDS ORDERED: Magnesium 2 GM/50 ML 2 GM in Premix Bag 1 BAG IVPB SCH (09:15)
[2018-05-27] MEDS: Enoxaparin Sodium 40 MG/0.4 ML SYRINGE SC SCH (09:30)
[2018-05-27] MEDS: busPIRone HCl 10 MG TAB PO SCH ×3 (09:30→21:09)
[2018-05-27] MEDS: Insulin Glargine 65 UNITS in Pre-Filled Syringe 1 EACH SC SCH (09:31)
[2018-05-27] MEDS: Gabapentin 300 MG CAP PO SCH ×2 (09:31→21:09)
[2018-05-27] MEDS: guaiFENesin ER 600 MG TAB PO SCH ×2 (09:31→21:09)
[2018-05-27] MEDS: NIFEdipine XL 60 MG TAB PO SCH (09:31)
--- NOTE | 2018-05-27 09:49 | CON ---
DATE OF CONSULTATION: 05/27/2018 HISTORY: This is a 52-year-old gentleman who was most recently discharged from the hospital. He say s he felt like he had a cold 2 days ago with coughing, shortness of breath. No fever or chills. He came to the ER with worsening symptoms unresponsive to usual home medication. PAST MEDICAL HISTORY: Pertinent for chronic asthma, COPD, previous hepatitis C, diabetes, hypertensi on, anxiety, bipolar disorder. PAST SURGICAL HISTORY: Included some kind of surgery on his right chest. ALCOHOL: Alcohol occasionally. TOBACCO: Denies smoking, but has used marijuana and cocaine in the past. He has no primary care physician. MEDICATIONS: Tramadol, prednisone, guaifenesin, BuSpar 10 three times a day, Crestor 20, Protonix, P rocardia-XL 60, Latuda 40, nebulizer, insulin, gabapentin 300 twice a day, ____ 50, Symbicort. Since admission, he was started on Solu-Medrol and neb treatments. He said he is feeling somewhat better. ALLERGIES: None. REVIEW OF SYSTEMS: Otherwise, 10-point negative. PHYSICAL EXAMINATION: VITAL SIGNS: His sats are 97 on 2 liters, respiration 20, temperature 97, blood pressure 140/95. CHEST: Diffuse wheezing, prolonged expiration. CARDIAC: Sinus tachycardia. ABDOMEN: Soft, without any masses. EXTREMITIES: No edema. NEUROLOGIC: Unremarkable. Awake, alert, responsive. LABORATORY: Glucose 228, creatinine is baseline 1.16. Chest x-ray shows no acute infiltrates. He had a blood gas done, pO2 is 228, pCO2 30%, pH 7.39. Apparently 2 liters nasal O2. IMPRESSION: 1. Chronic obstructive pulmonary disease. 2. Bronchial asthma exacerbation. 3. Schizophrenia, bipolar. PLAN: Continue steroids, neb treatments, supportive care. When stable switch over to prednisone. This is a consultation note, 70 minutes, 50% spent in direct patient care.
--- NOTE | 2018-05-27 11:03 | PDOC.PN ---
- Subjective Encounter Start Date: 05/27/18 Encounter Start Time: 09:20 -: old records requested/rev Patient seen and examined. No new complaints. No overnight events - Objective Resuscitation Status: Resuscitation Status FULL:Full Resuscitation MAR Reviewed: Yes Vital Signs & Weight: Vital Signs (12 hours) Temp Pulse Resp BP Pulse Ox 05/27/18 09:31 83 05/27/18 07:57 83 20 97 05/27/18 07:56 97.2 F L 82 23 H 149/85 H 99 05/27/18 04:23 98.8 F 95 25 H 145/91 H 93 L 05/27/18 02:30 96 24 H 98 05/27/18 02:20 104 H 05/27/18 00:35 99.2 F 104 H 30 H 182/104 H 98 Weight Weight 203 lb 4.259 oz I&O: 05/26/18 05/27/18 05/28/18 06:59 06:59 06:59 Intake Total 1092 0 Output Total 925 Balance 167 0 Result Diagrams: 05/27/18 02:49 05/27/18 02:49 Radiology Reviewed by me: Yes EKG Reviewed by me: Yes Phys Exam - Physical Examination Constitutional: NAD HEENT: PERRLA, moist MMs, sclera anicteric Neck: no JVD, supple Respiratory: no rales, wheezing present Cardiovascular: RRR, no significant murmur, no rub Gastrointestinal: soft, non-tender, no distention, positive bowel sounds Musculoskeletal: no edema, pulses present Neurological: non-focal, normal sensation, moves all 4 limbs Psychiatric: normal affect, A&O x 3 Skin: no rash, normal turgor Dx/Plan (1) Acute hypoxemic respiratory failure Code(s): J96.01 - ACUTE RESPIRATORY FAILURE WITH HYPOXIA Status: Acute (2) Asthma exacerbation Code(s): J45.901 - UNSPECIFIED ASTHMA WITH (ACUTE) EXACERBATION Status: Acute Comment: (3) Cardiomyopathy, nonischemic Code(s): I42.8 - OTHER CARDIOMYOPATHIES Status: Chronic (4) Diabetes type 2, uncontrolled Code(s): E11.65 - TYPE 2 DIABETES MELLITUS WITH HYPERGLYCEMIA Status: Chronic (5) Hepatitis C Code(s): B19.20 - UNSPECIFIED VIRAL HEPATITIS C WITHOUT HEPATIC COMA Status: Chronic Qualifiers: Viral hepatitis chronicity: chronic Hepatic coma status: without hepatic coma Qualified Code(s): B18.2 - Chronic viral hepatitis C (6) Hypertension Code(s): I10 - ESSENTIAL (PRIMARY) HYPERTENSION Status: Chronic Qualifiers: (7) Marijuana dependence Code(s): F12.20 - CANNABIS DEPENDENCE, UNCOMPLICATED Status: Chronic (8) Paranoid schizophrenia Code(s): F20.0 - PARANOID SCHIZOPHRENIA Status: Chronic - Plan cont current plan of care, respiratory therapy * . Review of Systems - Review of Systems Eyes: negative: Pain, Vision Change, Conjunctivae Inflammation, Eyelid Inflammation, Redness, Other ENT: negative: Ear Pain, Ear Discharge, Nose Pain, Nose Discharge, Nose Congestion, Mouth Pain, Mouth Swelling, Throat Pain, Throat Swelling, Other Respiratory: Cough, Shortness of Breath, SOB with Excertion, Wheezing. negative : Dry, Hemoptysis, Pleuritic Pain, Sputum Cardiovascular: negative: chest pain, palpitations, orthopnea, paroxysmal nocturnal dyspnea, edema, light headedness, other Gastrointestinal: negative: Nausea, Vomiting, Abdominal Pain, Diarrhea, Constipation, Melena, Hematochezia, Other Genitourinary: negative: Dysuria, Frequency, Incontinence, Hematuria, Retention , Other Musculoskeletal: negative: Neck Pain, Shoulder Pain, Arm Pain, Back Pain, Hand Pain, Leg Pain, Foot Pain, Other Skin: negative: Rash, Lesions, Diomedes, Bruising, Other - Medications/Allergies Allergies/Adverse Reactions: Allergies Allergy/AdvReac Type Severity Reaction Status Date / Time No Known Drug Allergies Allergy Verified 05/27/18 00:52 Medications: Current Medications Acetaminophen (Tylenol) 500 mg PO Q6H PRN PRN Reason: Mild Pain (1-3) Albuterol/Ipratropium (Duoneb) 3 ml NEB [id number] Artificial Tears (Tears Naturale) 2 drop EA EYE PRN PRN PRN Reason: Dry Eyes Bisacodyl (Dulcolax) 10 mg PO DAILYPRN PRN PRN Reason: Constipation Budesonide (Pulmicort Neb Solution) 0.5 mg INH BID-RT [facility] Buspirone HCl (Buspar) 10 mg PO TID [facility] Last Admin: 05/27/18 09:30 Dose: 10 mg Clonidine (Catapres) 0.1 mg PO Q4H PRN PRN Reason: SBP > 180 Dextrose/Water (Dextrose 50%) 25 gm SLOW IVP PRN PRN PRN Reason: Hypoglycemia Doxepin HCl (Sinequan) 50 mg PO HS [facility] Enoxaparin Sodium (Lovenox) 40 mg SC 0900 [facility] Last Admin: 05/27/18 09:30 Dose: 40 mg Gabapentin (Neurontin) 300 mg PO BID [facility] Last Admin: 05/27/18 09:31 Dose: 300 mg Glucagon (Glucagon) 1 mg IM PRN PRN PRN Reason: Hypoglycemia Guaifenesin (Mucinex) 600 mg PO Q12HR [facility] Last Admin: 05/27/18 09:31 Dose: 600 mg Guaifenesin (Robitussin Sf) 200 mg PO Q4H PRN PRN Reason: Cough Hydralazine HCl (Apresoline) 10 mg SLOW IVP Q4H PRN PRN Reason: SBP > 180 and HR < 70 Dextrose/Water (D5w) 1,000 mls @ 0 mls/hr IV .Q0M PRN PRN Reason: Hypoglycemia Magnesium Sulfate 2 gm/ Device 50 mls @ 100 mls/hr IVPB NOW [facility] Stop: 05/27/18 11:15 Last Admin: 05/27/18 09:32 Dose: 50 mls Insulin Glargine 65 units/ (Miscellaneous Medication) 0.65 mls @ 0 mls/hr SC QAM [facility] Last Admin: 05/27/18 09:31 Dose: 0.65 mls Insulin Human Lispro (Humalog) 0 units SC .MODERATE SLIDING SC PRN PRN Reason: Moderate Correctional Scale Insulin Human Lispro (Humalog) 0 units SC .BEDTIME SLIDING SC PRN PRN Reason: Bedtime Correctional Scale Loperamide HCl (Imodium) 2 mg PO PRN PRN PRN Reason: Diarrhea/Loose Stools Loratadine (Claritin) 10 mg PO DAILYPRN PRN PRN Reason: Sinus Symptoms Methylprednisolone Sodium Succinate (Solu-Medrol) 40 mg IVP Q6HR [facility] Mineral Oil/White Petrolatum (Eucerin Cream) 0 gm TOP BIDPRN PRN PRN Reason: Dry Skin Mometasone Furoate/Formoterol Fumar (Dulera 200 Mcg/5 Mcg Inhaler) 2 puff INH BID-RT [facility] Montelukast Sodium (Singulair) 10 mg PO QPM [facility] Nifedipine (Procardia Xl) 60 mg PO DAILY [facility] Last Admin: 05/27/18 09:31 Dose: 60 mg Ondansetron HCl (Zofran Odt) 4 mg PO Q6H PRN PRN Reason: Nausea/Vomiting Ondansetron HCl (Zofran) 4 mg IVP Q6H PRN PRN Reason: Nausea/Vomiting Pantoprazole Sodium (Protonix) 40 mg PO DAILY [facility] Last Admin: 05/27/18 09:31 Dose: 40 mg [place] 40 Mg Caps 1 each PO DAILY [facility] Rosuvastatin Calcium (Crestor) 20 mg PO HS [facility] Sodium Chloride ([place] Nasal [place] 0.65%) 0 ml EA NARE QIDPRN PRN PRN Reason: Nasal Congestion Throat Lozenges (Cepastat Lozenges) 1 mejia PO Q2H PRN PRN Reason: Sore Throat Tramadol HCl (Ultram) 50 mg PO QID PRN PRN Reason: Moderate Pain (4-6)
[2018-05-27 16:02] LABS: Glucose 473 mg/dL (70-105)
[2018-05-27] MEDS: HumaLOG 300 UNITS/3 ML VIAL SC PRN ×2 (16:18→21:13)
[2018-05-27] MEDS: Mometasone/Formoterol 120 PUFF INHALER INH SCH (18:23)
[2018-05-27] MEDS: Budesonide 0.5 MG/2 ML NEB INH SCH (18:23)
[2018-05-27] MEDS: Doxepin HCl 25 MG CAP PO SCH (21:09)
[2018-05-27] MEDS: Rosuvastatin 20 MG TAB PO SCH (21:09)
[2018-05-27] MEDS: Montelukast Sodium 10 mg Tablet PO SCH (21:09)
[2018-05-28 04:45] LABS: #Lymphocytes 0.6 thou/uL (1.20-3.40); #Monocytes 0.5 thou/uL (0.11-0.59); #Neutrophils 10.3 thou/uL (1.40-6.50); %Basophils 0.1 % (0.0-1.0); %Eosinophils 0.2 % (0.0-10.0); %Lymphocytes 5.4 % (21.0-51.0); %Monocytes 4.3 % (0.0-10.0); %Neutrophils 90.1 % (42.0-75.0); Hemoglobin 12.2 g/dL (14.0-18.0); Mean Corpuscular HGB CONC 33.1 g/dL (32.0-36.0); Mean Corpuscular Hemoglobin 29.8 pg (27.0-31.0); Mean Corpuscular Volume 90.2 fL (78.0-98.0); Mean Platelet Volume 7.8 fL (7.4-10.4); Platelet Count 271 thou/uL (130-400); RBC Distribution Width 13.6 % (11.5-14.5); Red Blood Cell (RBC) Count 4.09 mill/uL (4.70-6.10); White Blood Cell (WBC) Count 11.4 thou/uL (4.8-10.8)
[2018-05-28 05:06] LABS: ALT (SGPT) 44 U/L (8-55); AST (SGOT) 27 U/L (5-34); Albumin 3.6 g/dL (3.5-5.0); Alkaline Phosphatase 76 U/L (40-150); Anion Gap 14 mmol/L (10-20); BUN (Urea Nitrogen) 21 mg/dL (8.4-25.7); Bilirubin, Total 0.3 mg/dL (0.2-1.2); Calc. Creatinine Clearance 85 mL/min (70-130); Calcium 9.2 mg/dL (7.8-10.44); Carbon Dioxide 23 mmol/L (22-29); Chloride 101 mmol/L (98-107); Estimated GFR-MDRD 70; Globulin 3.4 g/dL (2.4-3.5); Glucose 409 mg/dL (70-105); Potassium 4.5 mmol/L (3.5-5.1); Sodium 133 mmol/L (136-145)
[2018-05-28] MEDS: Mometasone/Formoterol 120 PUFF INHALER INH SCH ×2 (06:04→19:49)
[2018-05-28] MEDS: Budesonide 0.5 MG/2 ML NEB INH SCH ×2 (06:04→19:50)
[2018-05-28] MEDS: HumaLOG 300 UNITS/3 ML VIAL SC PRN ×4 (06:21→21:57)
[2018-05-28] MEDS: guaiFENesin ER 600 MG TAB PO SCH ×2 (08:34→21:45)
[2018-05-28] MEDS: busPIRone HCl 10 MG TAB PO SCH ×3 (08:35→22:41)
[2018-05-28] MEDS: NIFEdipine XL 60 MG TAB PO SCH (08:35)
[2018-05-28] MEDS: Gabapentin 300 MG CAP PO SCH ×2 (08:35→21:45)
[2018-05-28] MEDS: Enoxaparin Sodium 40 MG/0.4 ML SYRINGE SC SCH (08:35)
[2018-05-28] MEDS: Insulin Glargine 65 UNITS in Pre-Filled Syringe 1 EACH SC SCH (08:36)
[2018-05-28] MEDS ORDERED: [UNRECOGNIZED DRUG - OTHER] PO SCH (09:00)
--- NOTE | 2018-05-28 09:19 | PRG ---
DATE OF SERVICE: 05/28/2018 The patient is doing better, did not use BiPAP last night. PHYSICAL EXAMINATION: Vital signs: On exam temperature is 98.2, pulse 101, respirations 21, O2 sat 97 on 2 liters, blood p ressure 144/77. HEENT: Unremarkable. NECK: No JVD. LUNGS: Mild end expiratory wheezing bilaterally. CARDIAC: S1 and S2 regular. ABDOMEN: Soft. EXTREMITIES: No edema. LABORATORY DATA: White blood cell count 11.4, hematocrit 36.9, platelet count 271. Sodium 133, BUN 21, creatinine 1.3, glucose 419. ASSESSMENT: 1. Asthma with exacerbation. 2. Uncontrolled hyperglycemia - likely aggravated by steroids. PLAN: This patient has improved from a pulmonary standpoint where he can be transferred to the medic al floor. His steroid dose has been changed by Dr. Guerra. That might help his hyperglycemia. The BiPAP can be stopped.
--- NOTE | 2018-05-28 11:47 | PDOC.PN ---
- Subjective Encounter Start Date: 05/28/18 Encounter Start Time: 09:30 Patient seen and examined. No new complaints. No overnight events less dyspnea, overall doing better today - Objective Resuscitation Status: Resuscitation Status FULL:Full Resuscitation MAR Reviewed: Yes Vital Signs & Weight: Vital Signs (12 hours) Temp Pulse Resp BP Pulse Ox 05/28/18 11:42 97.9 F 96 19 143/86 H 93 L 05/28/18 10:27 94 20 95 05/28/18 08:35 101 H 05/28/18 08:00 93 L 05/28/18 07:43 98.2 F 101 H 21 H 144/77 H 97 05/28/18 06:17 95 05/28/18 06:04 82 16 95 05/28/18 04:00 97.3 F L 64 17 129/73 98 05/28/18 00:00 98.2 F 99 19 119/72 99 Weight Weight 200 lb 13.458 oz I&O: 05/27/18 05/28/18 05/29/18 06:59 06:59 06:59 Intake Total 1092 3030 Output Total 925 3590 Balance 167 -560 Result Diagrams: 05/28/18 04:15 05/28/18 04:15 Additional Labs: Accuchecks 05/28/18 05/28/18 05/27/18 10:42 06:21 21:09 POC Glucose 406 H 419 H 496 H 05/27/18 05/27/18 05/27/18 17:23 15:40 15:29 POC Glucose 320 H 430 H Greater than 550 H* 05/27/18 06:15 POC Glucose 300 H EKG Reviewed by me: Yes (nsr) Phys Exam - Physical Examination Constitutional: NAD HEENT: PERRLA, moist MMs, sclera anicteric Neck: no JVD, supple Respiratory: no rales, wheezing present Cardiovascular: RRR, no significant murmur, no rub Gastrointestinal: soft, non-tender, no distention, positive bowel sounds Musculoskeletal: no edema, pulses present Neurological: non-focal, normal sensation, moves all 4 limbs Psychiatric: normal affect, A&O x 3 Skin: no rash, normal turgor Dx/Plan (1) Acute hypoxemic respiratory failure Code(s): J96.01 - ACUTE RESPIRATORY FAILURE WITH HYPOXIA Status: Acute (2) Asthma exacerbation Code(s): J45.901 - UNSPECIFIED ASTHMA WITH (ACUTE) EXACERBATION Status: Acute Comment: (3) Cardiomyopathy, nonischemic Code(s): I42.8 - OTHER CARDIOMYOPATHIES Status: Chronic (4) Diabetes type 2, uncontrolled Code(s): E11.65 - TYPE 2 DIABETES MELLITUS WITH HYPERGLYCEMIA Status: Chronic (5) Hepatitis C Code(s): B19.20 - UNSPECIFIED VIRAL HEPATITIS C WITHOUT HEPATIC COMA Status: Chronic Qualifiers: Viral hepatitis chronicity: chronic Hepatic coma status: without hepatic coma Qualified Code(s): B18.2 - Chronic viral hepatitis C (6) Hypertension Code(s): I10 - ESSENTIAL (PRIMARY) HYPERTENSION Status: Chronic Qualifiers: (7) Marijuana dependence Code(s): F12.20 - CANNABIS DEPENDENCE, UNCOMPLICATED Status: Chronic (8) Paranoid schizophrenia Code(s): F20.0 - PARANOID SCHIZOPHRENIA Status: Chronic - Plan cont current plan of care, respiratory therapy * pt's hyperglycemia due to steroid, will change to aggressive sliding scale * reduce solumedrol today * transfer to medical * wean off oxygen as tolerated * medication reviewed as below * symptomatic treatment * will monitor in hospital. Review of Systems - Review of Systems Constitutional: negative: fever, chills, sweats, weakness, malaise, other Eyes: negative: Pain, Vision Change, Conjunctivae Inflammation, Eyelid Inflammation, Redness, Other ENT: negative: Ear Pain, Ear Discharge, Nose Pain, Nose Discharge, Nose Congestion, Mouth Pain, Mouth Swelling, Throat Pain, Throat Swelling, Other Respiratory: Cough, Wheezing. negative: Dry, Shortness of Breath, Hemoptysis, SOB with Excertion, Pleuritic Pain, Sputum Cardiovascular: negative: chest pain, palpitations, orthopnea, paroxysmal nocturnal dyspnea, edema, light headedness, other Gastrointestinal: negative: Nausea, Vomiting, Abdominal Pain, Diarrhea, Constipation, Melena, Hematochezia, Other Genitourinary: negative: Dysuria, Frequency, Incontinence, Hematuria, Retention , Other Musculoskeletal: negative: Neck Pain, Shoulder Pain, Arm Pain, Back Pain, Hand Pain, Leg Pain, Foot Pain, Other - Medications/Allergies Allergies/Adverse Reactions: Allergies Allergy/AdvReac Type Severity Reaction Status Date / Time No Known Drug Allergies Allergy Verified 05/27/18 00:52 Medications: Current Medications Acetaminophen (Tylenol) 500 mg PO Q6H PRN PRN Reason: Mild Pain (1-3) Albuterol/Ipratropium (Duoneb) 3 ml NEB [id number] Last Admin: 05/28/18 10:27 Dose: 3 ml Artificial Tears (Tears Naturale) 2 drop EA EYE PRN PRN PRN Reason: Dry Eyes Bisacodyl (Dulcolax) 10 mg PO DAILYPRN PRN PRN Reason: Constipation Budesonide (Pulmicort Neb Solution) 0.5 mg INH BID-RT [facility] Last Admin: 05/28/18 06:04 Dose: 0.5 mg Buspirone HCl (Buspar) 10 mg PO TID [facility] Last Admin: 05/28/18 08:35 Dose: 10 mg Clonidine (Catapres) 0.1 mg PO Q4H PRN PRN Reason: SBP > 180 Dextrose/Water (Dextrose 50%) 25 gm SLOW IVP PRN PRN PRN Reason: Hypoglycemia Doxepin HCl (Sinequan) 50 mg PO HS [facility] Last Admin: 05/27/18 21:09 Dose: 50 mg Enoxaparin Sodium (Lovenox) 40 mg SC 0900 [facility] Last Admin: 05/28/18 08:35 Dose: 40 mg Gabapentin (Neurontin) 300 mg PO BID [facility] Last Admin: 05/28/18 08:35 Dose: 300 mg Glucagon (Glucagon) 1 mg IM PRN PRN PRN Reason: Hypoglycemia Guaifenesin (Mucinex) 600 mg PO Q12HR [facility] Last Admin: 05/28/18 08:34 Dose: 600 mg Guaifenesin (Robitussin Sf) 200 mg PO Q4H PRN PRN Reason: Cough Hydralazine HCl (Apresoline) 10 mg SLOW IVP Q4H PRN PRN Reason: SBP > 180 and HR < 70 Dextrose/Water (D5w) 1,000 mls @ 0 mls/hr IV .Q0M PRN PRN Reason: Hypoglycemia Insulin Glargine 65 units/ (Miscellaneous Medication) 0.65 mls @ 0 mls/hr SC QAM [facility] Last Admin: 05/28/18 08:36 Dose: 0.65 mls Insulin Human Lispro (Humalog) 0 units SC .BEDTIME SLIDING SC PRN PRN Reason: Bedtime Correctional Scale Insulin Human Lispro (Humalog) 0 units SC .AGGRESSIVE SLIDING PRN; Protocol PRN Reason: AGGRESSIVE SLIDING SCALE Last Admin: 05/28/18 10:55 Dose: 13 unit Loperamide HCl (Imodium) 2 mg PO PRN PRN PRN Reason: Diarrhea/Loose Stools Loratadine (Claritin) 10 mg PO DAILYPRN PRN PRN Reason: Sinus Symptoms Methylprednisolone Sodium Succinate (Solu-Medrol) 20 mg IVP Q8HR [facility] Mineral Oil/White Petrolatum (Eucerin Cream) 0 gm TOP BIDPRN PRN PRN Reason: Dry Skin Mometasone Furoate/Formoterol Fumar (Dulera 200 Mcg/5 Mcg Inhaler) 2 puff INH BID-RT [facility] Last Admin: 05/28/18 06:04 Dose: 2 puff Montelukast Sodium (Singulair) 10 mg PO QPM [facility] Last Admin: 05/27/18 21:09 Dose: 10 mg Nifedipine (Procardia Xl) 60 mg PO DAILY [facility] Last Admin: 05/28/18 08:35 Dose: 60 mg Ondansetron HCl (Zofran Odt) 4 mg PO Q6H PRN PRN Reason: Nausea/Vomiting Ondansetron HCl (Zofran) 4 mg IVP Q6H PRN PRN Reason: Nausea/Vomiting Pantoprazole Sodium (Protonix) 40 mg PO DAILY [facility] Last Admin: 05/28/18 08:35 Dose: 40 mg Rosuvastatin Calcium (Crestor) 20 mg PO HS [facility] Last Admin: 05/27/18 21:09 Dose: 20 mg Sodium Chloride ([place] Nasal [place] 0.65%) 0 ml EA NARE QIDPRN PRN PRN Reason: Nasal Congestion Sodium Chloride (Flush - Normal Saline) 10 ml IVF Q12HR [facility] Last Admin: 05/28/18 08:45 Dose: 10 ml Sodium Chloride (Flush - Normal Saline) 10 ml IVF PRN PRN PRN Reason: Saline Flush Throat Lozenges (Cepastat Lozenges) 1 mejia PO Q2H PRN PRN Reason: Sore Throat Tramadol HCl (Ultram) 50 mg PO QID PRN PRN Reason: Moderate Pain (4-6)
[2018-05-28] MEDS: Bisacodyl 5 MG TAB PO PRN (20:02)
[2018-05-28] MEDS: Montelukast Sodium 10 mg Tablet PO SCH (21:45)
[2018-05-28] MEDS: Rosuvastatin 20 MG TAB PO SCH (21:45)
[2018-05-28] MEDS: Doxepin HCl 25 MG CAP PO SCH (22:41)
[2018-05-29 05:06] LABS: #Lymphocytes 1.2 thou/uL (1.20-3.40); #Monocytes 0.8 thou/uL (0.11-0.59); #Neutrophils 12.4 thou/uL (1.40-6.50); %Eosinophils 0.1 % (0.0-10.0); %Lymphocytes 8.2 % (21.0-51.0); %Monocytes 5.5 % (0.0-10.0); %Neutrophils 86.2 % (42.0-75.0); Hemoglobin 11.7 g/dL (14.0-18.0); Mean Corpuscular HGB CONC 33.2 g/dL (32.0-36.0); Mean Corpuscular Volume 90.4 fL (78.0-98.0); Platelet Count 301 thou/uL (130-400); RBC Distribution Width 13.5 % (11.5-14.5); Red Blood Cell (RBC) Count 3.89 mill/uL (4.70-6.10); White Blood Cell (WBC) Count 14.4 thou/uL (4.8-10.8)
[2018-05-29 05:25] LABS: ALT (SGPT) 37 U/L (8-55); AST (SGOT) 19 U/L (5-34); Albumin 3.4 g/dL (3.5-5.0); Alkaline Phosphatase 70 U/L (40-150); Anion Gap 13 mmol/L (10-20); BUN (Urea Nitrogen) 19 mg/dL (8.4-25.7); Bilirubin, Total Less than 0.2 mg/dL (0.2-1.2); Calc. Creatinine Clearance 85 mL/min (70-130); Calcium 8.8 mg/dL (7.8-10.44); Carbon Dioxide 25 mmol/L (22-29); Chloride 101 mmol/L (98-107); Estimated GFR-MDRD 71; Glucose 377 mg/dL (70-105); Potassium 4.7 mmol/L (3.5-5.1); Protein, Total 6.4 g/dL (6.0-8.3); Sodium 134 mmol/L (136-145)
[2018-05-29] MEDS: HumaLOG 300 UNITS/3 ML VIAL SC PRN ×4 (05:47→21:10)
[2018-05-29] MEDS: Budesonide 0.5 MG/2 ML NEB INH SCH ×2 (06:46→19:06)
[2018-05-29] MEDS: Mometasone/Formoterol 120 PUFF INHALER INH SCH ×2 (06:47→19:07)
[2018-05-29] MEDS: Insulin Glargine 75 UNITS in Pre-Filled Syringe 1 EACH SC SCH (09:24)
[2018-05-29] MEDS: NIFEdipine XL 60 MG TAB PO SCH (09:24)
[2018-05-29] MEDS: Gabapentin 300 MG CAP PO SCH ×2 (09:24→21:09)
[2018-05-29] MEDS: guaiFENesin ER 600 MG TAB PO SCH ×2 (09:24→21:08)
[2018-05-29] MEDS: Enoxaparin Sodium 40 MG/0.4 ML SYRINGE SC SCH (09:24)
--- NOTE | 2018-05-29 10:18 | PRG ---
DATE OF SERVICE: 05/29/2018 SUBJECTIVE: He feels better, but he is not all the way there. PHYSICAL EXAMINATION: VITAL SIGNS: Temperature is 97.5, pulse 92, respirations 20, O2 sat 96%, blood pressure 163/87. HEENT: Unremarkable. NECK: No JVD. LUNGS: Diffuse mild expiratory wheezing. CARDIAC: S1 and S2 regular. ABDOMEN: Soft. EXTREMITIES: No edema. LABORATORY DATA: White blood cell count 14, hematocrit 35, platelet count 301. Sodium 134, potassiu m 4.7, chloride 101, CO2 25, BUN 19, creatinine 1.2, glucose 356. ASSESSMENT: Asthma with exacerbation. PLAN: Continue present care with steroids and nebulization treatments. I would anticipate him being able to go home by tomorrow.
[2018-05-29] MEDS: busPIRone HCl 10 MG TAB PO SCH ×3 (11:00→21:08)
--- NOTE | 2018-05-29 11:01 | PDOC.PN ---
- Subjective Encounter Start Date: 05/29/18 Encounter Start Time: 07:00 now pt is on room air, he has some wheezing but overall doing well, Patient seen and examined. No new complaints. No overnight events - Objective Resuscitation Status: Resuscitation Status FULL:Full Resuscitation MAR Reviewed: Yes Vital Signs & Weight: Vital Signs (12 hours) Temp Pulse Resp BP Pulse Ox 05/29/18 10:06 85 20 96 05/29/18 09:24 92 05/29/18 08:00 96 05/29/18 06:59 97.5 F L 92 20 163/87 H 96 05/29/18 06:43 79 20 97 05/28/18 23:31 98.7 F 91 20 151/78 H 96 Weight Weight 194 lb 11.2 oz I&O: 05/28/18 05/29/18 05/30/18 06:59 06:59 06:59 Intake Total 3030 1190 Output Total 3590 Balance -560 1190 Result Diagrams: 05/29/18 04:30 05/29/18 04:30 Additional Labs: Accuchecks 05/29/18 05/28/18 05/28/18 05:33 20:30 15:35 POC Glucose 356 H 366 H 321 H Phys Exam - Physical Examination Constitutional: NAD HEENT: PERRLA, moist MMs, sclera anicteric Neck: no JVD, supple Respiratory: no rales, wheezing present Cardiovascular: RRR, no significant murmur, no rub Gastrointestinal: soft, non-tender, no distention, positive bowel sounds Musculoskeletal: no edema, pulses present Neurological: non-focal, normal sensation, moves all 4 limbs Psychiatric: normal affect, A&O x 3 Skin: no rash, normal turgor Dx/Plan (1) Acute hypoxemic respiratory failure Code(s): J96.01 - ACUTE RESPIRATORY FAILURE WITH HYPOXIA Status: Acute (2) Asthma exacerbation Code(s): J45.901 - UNSPECIFIED ASTHMA WITH (ACUTE) EXACERBATION Status: Acute Comment: (3) Cardiomyopathy, nonischemic Code(s): I42.8 - OTHER CARDIOMYOPATHIES Status: Chronic (4) Diabetes type 2, uncontrolled Code(s): E11.65 - TYPE 2 DIABETES MELLITUS WITH HYPERGLYCEMIA Status: Chronic (5) Hepatitis C Code(s): B19.20 - UNSPECIFIED VIRAL HEPATITIS C WITHOUT HEPATIC COMA Status: Chronic Qualifiers: Viral hepatitis chronicity: chronic Hepatic coma status: without hepatic coma Qualified Code(s): B18.2 - Chronic viral hepatitis C (6) Hypertension Code(s): I10 - ESSENTIAL (PRIMARY) HYPERTENSION Status: Chronic Qualifiers: (7) Marijuana dependence Code(s): F12.20 - CANNABIS DEPENDENCE, UNCOMPLICATED Status: Chronic (8) Paranoid schizophrenia Code(s): F20.0 - PARANOID SCHIZOPHRENIA Status: Chronic - Plan cont current plan of care, respiratory therapy * increase lantus 75 unit sc daily, his blood sugar are high due to steroid, expecting to improve once steroid off * medication reviewed as below * symptomatic treatment * continue respiratory therapy * expecting discharge soon. Review of Systems - Review of Systems Eyes: negative: Pain, Vision Change, Conjunctivae Inflammation, Eyelid Inflammation, Redness, Other ENT: negative: Ear Pain, Ear Discharge, Nose Pain, Nose Discharge, Nose Congestion, Mouth Pain, Mouth Swelling, Throat Pain, Throat Swelling, Other Respiratory: Wheezing. negative: Cough, Dry, Shortness of Breath, Hemoptysis, SOB with Excertion, Pleuritic Pain, Sputum Cardiovascular: negative: chest pain, palpitations, orthopnea, paroxysmal nocturnal dyspnea, edema, light headedness, other Gastrointestinal: negative: Nausea, Vomiting, Abdominal Pain, Diarrhea, Constipation, Melena, Hematochezia, Other Genitourinary: negative: Dysuria, Frequency, Incontinence, Hematuria, Retention , Other Musculoskeletal: negative: Neck Pain, Shoulder Pain, Arm Pain, Back Pain, Hand Pain, Leg Pain, Foot Pain, Other Skin: negative: Rash, Lesions, Diomedes, Bruising, Other - Medications/Allergies Allergies/Adverse Reactions: Allergies Allergy/AdvReac Type Severity Reaction Status Date / Time No Known Drug Allergies Allergy Verified 05/27/18 00:52 Medications: Current Medications Acetaminophen (Tylenol) 500 mg PO Q6H PRN PRN Reason: Mild Pain (1-3) Albuterol/Ipratropium (Duoneb) 3 ml NEB [id number] Last Admin: 05/29/18 10:06 Dose: 3 ml Artificial Tears (Tears Naturale) 2 drop EA EYE PRN PRN PRN Reason: Dry Eyes Bisacodyl (Dulcolax) 10 mg PO DAILYPRN PRN PRN Reason: Constipation Last Admin: 05/28/18 20:02 Dose: 10 mg Budesonide (Pulmicort Neb Solution) 0.5 mg INH BID-RT [facility] Last Admin: 05/29/18 06:46 Dose: 0.5 mg Buspirone HCl (Buspar) 10 mg PO TID [facility] Last Admin: 05/29/18 11:00 Dose: 10 mg Clonidine (Catapres) 0.1 mg PO Q4H PRN PRN Reason: SBP > 180 Dextrose/Water (Dextrose 50%) 25 gm SLOW IVP PRN PRN PRN Reason: Hypoglycemia Doxepin HCl (Sinequan) 50 mg PO HS [facility] Last Admin: 05/28/18 22:41 Dose: 50 mg Enoxaparin Sodium (Lovenox) 40 mg SC 0900 [facility] Last Admin: 05/29/18 09:24 Dose: 40 mg Gabapentin (Neurontin) 300 mg PO BID [facility] Last Admin: 05/29/18 09:24 Dose: 300 mg Glucagon (Glucagon) 1 mg IM PRN PRN PRN Reason: Hypoglycemia Guaifenesin (Mucinex) 600 mg PO Q12HR [facility] Last Admin: 05/29/18 09:24 Dose: 600 mg Guaifenesin (Robitussin Sf) 200 mg PO Q4H PRN PRN Reason: Cough Hydralazine HCl (Apresoline) 10 mg SLOW IVP Q4H PRN PRN Reason: SBP > 180 and HR < 70 Dextrose/Water (D5w) 1,000 mls @ 0 mls/hr IV .Q0M PRN PRN Reason: Hypoglycemia Insulin Glargine 75 units/ (Miscellaneous Medication) 0.75 mls @ 0 mls/hr SC QAM [facility] Last Admin: 05/29/18 09:24 Dose: 0.75 mls Insulin Human Lispro (Humalog) 0 units SC .BEDTIME SLIDING SC PRN PRN Reason: Bedtime Correctional Scale Last Admin: 05/28/18 21:57 Dose: 5 unit Insulin Human Lispro (Humalog) 0 units SC .AGGRESSIVE SLIDING PRN; Protocol PRN Reason: AGGRESSIVE SLIDING SCALE Last Admin: 05/29/18 05:47 Dose: 13 unit Loperamide HCl (Imodium) 2 mg PO PRN PRN PRN Reason: Diarrhea/Loose Stools Loratadine (Claritin) 10 mg PO DAILYPRN PRN PRN Reason: Sinus Symptoms Methylprednisolone Sodium Succinate (Solu-Medrol) 20 mg IVP Q8HR [facility] Last Admin: 05/29/18 05:42 Dose: 20 mg Mineral Oil/White Petrolatum (Eucerin Cream) 0 gm TOP BIDPRN PRN PRN Reason: Dry Skin Mometasone Furoate/Formoterol Fumar (Dulera 200 Mcg/5 Mcg Inhaler) 2 puff INH BID-RT [facility] Last Admin: 05/29/18 06:47 Dose: 2 puff Montelukast Sodium (Singulair) 10 mg PO QPM [facility] Last Admin: 05/28/18 21:45 Dose: 10 mg Nifedipine (Procardia Xl) 60 mg PO DAILY [facility] Last Admin: 05/29/18 09:24 Dose: 60 mg Ondansetron HCl (Zofran Odt) 4 mg PO Q6H PRN PRN Reason: Nausea/Vomiting Ondansetron HCl (Zofran) 4 mg IVP Q6H PRN PRN Reason: Nausea/Vomiting Pantoprazole Sodium (Protonix) 40 mg PO DAILY [facility] Last Admin: 05/29/18 09:24 Dose: 40 mg Rosuvastatin Calcium (Crestor) 20 mg PO HS [facility] Last Admin: 05/28/18 21:45 Dose: 20 mg Sodium Chloride ([place] Nasal [place] 0.65%) 0 ml EA NARE QIDPRN PRN PRN Reason: Nasal Congestion Sodium Chloride (Flush - Normal Saline) 10 ml IVF Q12HR [facility] Last Admin: 05/28/18 21:46 Dose: 10 ml Sodium Chloride (Flush - Normal Saline) 10 ml IVF PRN PRN PRN Reason: Saline Flush Last Admin: 05/29/18 05:44 Dose: 10 ml Throat Lozenges (Cepastat Lozenges) 1 mejia PO Q2H PRN PRN Reason: Sore Throat Tramadol HCl (Ultram) 50 mg PO QID PRN PRN Reason: Moderate Pain (4-6)
--- NOTE | 2018-05-29 11:23 | EKG ---
Test Reason : Blood Pressure : / mmHG Vent. Rate : 108 BPM Atrial Rate : 108 BPM P-R Int : 148 ms QRS Dur : 090 ms QT Int : 356 ms P-R-T Axes : 066 -43 070 degrees QTc Int : 477 ms Sinus tachycardia Left axis deviation Nonspecific T wave abnormality Abnormal ECG Confirmed by RYANN GUTIERRES, KASSANDRA ([id number]), editor trade journal LLUVIA BELL ([id number]) on 05/29/2018 11:22:33 AM Referred By: Confirmed By:KASSANDRA GARZON MD
[2018-05-29] MEDS: Rosuvastatin 20 MG TAB PO SCH (21:08)
[2018-05-29] MEDS: Montelukast Sodium 10 mg Tablet PO SCH (21:08)
[2018-05-29] MEDS: Doxepin HCl 25 MG CAP PO SCH (21:09)
[2018-05-29] MEDS: Bisacodyl 5 MG TAB PO PRN (21:15)
[2018-05-30] MEDS: HumaLOG 300 UNITS/3 ML VIAL SC PRN (06:10)
[2018-05-30] MEDS: Budesonide 0.5 MG/2 ML NEB INH SCH (08:32)
[2018-05-30] MEDS: NIFEdipine XL 60 MG TAB PO SCH (08:44)
[2018-05-30] MEDS: Gabapentin 300 MG CAP PO SCH (08:44)
[2018-05-30] MEDS: Insulin Glargine 75 UNITS in Pre-Filled Syringe 1 EACH SC SCH (08:45)
[2018-05-30] MEDS: Enoxaparin Sodium 40 MG/0.4 ML SYRINGE SC SCH (08:45)
[2018-05-30] MEDS: Mometasone/Formoterol 120 PUFF INHALER INH SCH (08:49)
[2018-05-30 08:50] VITALS: BP 170/87; TEMP 97.6
[2018-05-30] MEDS: guaiFENesin ER 600 MG TAB PO SCH (09:49)
[2018-05-30] MEDS: busPIRone HCl 10 MG TAB PO SCH (09:49)
--- NOTE | 2018-05-30 10:24 | PRG ---
DATE OF SERVICE: 05/30/2018 SUBJECTIVE: The patient is doing better. He wants to go home. OBJECTIVE: VITAL SIGNS: Temperature 97.6, pulse 88, respirations 12, O2 saturation 96% on room air. HEENT: Unremarkable. NECK: No JVD. LUNGS: He has mild end expiratory wheeze. CARDIOVASCULAR: S1 and S2 regular. ABDOMEN: Soft. EXTREMITIES: No edema. ASSESSMENT: Asthma/chronic obstructive pulmonary disease exacerbation. PLAN: He is stable to go home on a steroid taper and his breathing treatments. He is free to follow up with me on an outpatient basis, but he rarely does.
--- NOTE | 2018-05-30 11:38 | DIS ---
DATE OF ADMISSION: 05/26/2018 DATE OF DISCHARGE: 05/30/2018 PRIMARY CARE PHYSICIAN: Dr. Davie Jones. DISCHARGE DISPOSITION: Home. PRIMARY DISCHARGE DIAGNOSES: 1. Acute respiratory failure with hypoxia, resolved. 2. Acute asthmatic bronchitis with asthma exacerbation, controlled. SECONDARY DISCHARGE DIAGNOSES: Paranoid schizophrenia, marijuana abuse, hypertension, chronic hepati tis C, diabetes type 2, cocaine abuse, nonischemic cardiomyopathy, coronary artery disease, asthma ch ronic persistent. PRIMARY PROCEDURE/OPERATION: None. RADIOLOGICAL INVESTIGATION: Chest x-ray showed no acute process. SIGNIFICANT LABORATORY DATA: WBC 14.4, hemoglobin 11.7, platelet 301, pCO2 34.3, O2 228.9, bicarbona te 20.3, pH 7.39. Sodium 134, potassium 4.7, BUN 19, creatinine 1.28, glucose 377, calcium 8.8, AST 19, ALT 37, alkaline phosphatase 70, albumin 3.4. Urinalysis normal. Blood culture negative. DISCHARGE MEDICATIONS: New medications: Prednisone 40 mg p.o. daily for 7 days, then 20 mg p.o. [place] ly for 7 days, then 10 mg p.o. daily for 7 days. Continue following medications; ProAir HFA 2 puffs q.4 hourly p.r.n., buspirone 10 mg p.o. t.i.d., Sinequan 50 mg p.o. at bedtime, gabapentin 300 mg p.o . b.i.d., NovoLog insulin as per sliding scale, Latuda 40 mg p.o. daily, tramadol 50 mg q.i.d. p.r.n. , albuterol nebulization q.4 hourly, DuoNeb q.4 hourly, Mucinex 1200 mg twice daily, Symbicort 2 puff inhalation b.i.d., Lantus 75 units subcu daily, Singulair 10 mg daily, Procardia-XL 60 mg p.o. daily , Protonix 40 mg p.o. daily, Crestor 20 mg p.o. at bedtime. CONTRAINDICATIONS: None. CODE STATUS: FULL CODE. INPATIENT CONSULTANTS: [facility] was following while in hospital. TEST RESULTS PENDING ON DISCHARGE: None. ALLERGIES: No known drug allergy. DISCHARGE PLAN: Post hospital, patient is instructed to follow with primary care physician in 1 week . HOSPITAL COURSE: A 52-year-old -[place] male who has moderate persistent asthma who was brou ght to emergency room for increasing shortness of breath. The patient was in respiratory distress. He was having acute asthma exacerbation with asthmatic bronchitis. He was also having acute hypoxic respiratory failure. He required BiPAP. His initial chest x-ray was unremarkable. He was admitted to [facility]. He was treated with BiPAP and optimum respiratory support with DuoNeb, Solu-Medrol, Mucinex , Pulmicort nebulization, Dulera and Singulair. After several hours, the patient did not require any BiPAP and BiPAP were discontinued and oxygen was continued up until he was no longer requiring any oxygen. We continued optimum therapy while in [facility]. We reduced steroid daily basis. Because of steroid, his blood sugar was out of control and t hat is why we have to increase Lantus insulin. Upon stabilization, this patient was transferred to medical floor. Patient is doing very well. He i s feeling by himself as up to his baseline. He still has mild wheezing which is chronic for him. We advised him to avoid any kind of illicit drugs as well as the smoking and to keep away from respirat ory pollution. Patient is doing well. He ran out his insulin and other few medications that was also prescribed tolyric rahman. The patient is seen and examined at bedside today. REVIEW OF SYSTEMS: Reviewed and negative. Discharge medication reconciliation done and new medication prescription sent to his pharmacy. PHYSICAL EXAMINATION: VITAL SIGNS: Currently, temperature 97.6, pulse 97, respiratory rate 18, saturation 96% on room air, blood pressure 170/87, weight 194 pounds. GENERAL: The patient is currently alert, awake, no obvious acute distress. HEAD: Normocephalic, atraumatic. EYES: Pupils round, reactive to light. Extraocular muscle intact. ENT: Oropharynx within normal limits. Moist mucous membranes. No oral lesion, no pharyngeal erythe ma, no exudate. NECK: Supple, no JVD, no thyromegaly, no carotid bruit. LUNGS: Few end expiratory wheezing heard. No rales. No use of accessory muscles of respiration in use. CARDIAC: S1, S2 regular without any murmur. ABDOMEN: Soft and benign. EXTREMITIES: No edema. NEUROLOGIC: Nonfocal examination. Total time spent on discharge day 31 minutes.
== END 2018-05-30 12:13 | disposition home or self-care (01) | DRG 189 ==
LOC: ERS 22:32 → IMCU/EMU 23:28 → ONC 05-28 14:45
PROVIDERS: ADMIT Internal Medicine; ATTEND Internal Medicine
PROC: 5A09357 Assistance with Respiratory Ventilation, Less than 24 Consecutive Hours, Continuous Positive Airway Pressure (ICD-10-PCS; principal; 2018-05-26)
DX: J96.01 Acute respiratory failure with hypoxia (principal); J44.1 Chronic obstructive pulmonary disease with (acute) exacerbation; F20.0 Paranoid schizophrenia; I42.8 Other cardiomyopathies; I10 Essential (primary) hypertension; E11.65 Type 2 diabetes mellitus with hyperglycemia; I25.10 Atherosclerotic heart disease of native coronary artery without angina pectoris; K21.9 Gastro-esophageal reflux disease without esophagitis; B18.2 Chronic viral hepatitis C; F31.9 Bipolar disorder, unspecified; T38.0X5A Adverse effect of glucocorticoids and synthetic analogues, initial encounter; Z79.4 Long term (current) use of insulin
CPT/HCPCS: 36415; 36416; 71045; 80053; 81003; 82550; 82553; 82805; 83605; 83690; 83880; 84484; 85025; 87040; 93005; 94640; 94644; 94660; 96365; 96367; 96375; J1100; J1650; J1956; J2920; J7611; J7620; J7626

== ENCOUNTER 2018-06-07 15:56 | Emergency (ER) | payer OTHER | END 2018-06-07 17:17 | disposition home or self-care (01) | LOC: ERS 15:56 | DX: T38.3X1A Poisoning by insulin and oral hypoglycemic [antidiabetic] drugs, accidental (unintentional), initial encounter (principal); J44.9 Chronic obstructive pulmonary disease, unspecified; E10.9 Type 1 diabetes mellitus without complications; I11.0 Hypertensive heart disease with heart failure; I50.9 Heart failure, unspecified; J45.909 Unspecified asthma, uncomplicated; F32.9 Major depressive disorder, single episode, unspecified; F20.9 Schizophrenia, unspecified; Z79.899 Other long term (current) drug therapy | CPT/HCPCS: 36416; 99284 ==

== ENCOUNTER 2018-12-03 08:32 | Emergency (ER) | payer OTHER ==
[2018-12-03] MEDS ORDERED: Ketorolac Tromethamine 60 MG/2 ML VIAL ONE (10:22)
--- NOTE | 2018-12-03 11:19 | RAD ---
TWO VIEW CHEST: HISTORY: Chest pain. FINDINGS: Lungs are clear. Heart and mediastinum appear unremarkable. Vascularity is normal. Osseous structu res unremarkable. IMPRESSION: No acute finding. POS: [facility]
== END 2018-12-03 10:57 | disposition home or self-care (01) ==
LOC: ERS 08:32
DX: S29.011A Strain of muscle and tendon of front wall of thorax, initial encounter (principal); I11.0 Hypertensive heart disease with heart failure; I50.9 Heart failure, unspecified; X58.XXXA Exposure to other specified factors, initial encounter
CPT/HCPCS: 71046; 93005; 96372; J1885

== ENCOUNTER 2018-12-07 22:32 | Emergency (ER) | payer OTHER ==
[2018-12-07 23:02] LABS: Bilirubin Negative (Negative); Blood, Urine Negative (Negative); Clarity TURBID (Clear); Glucose, Urine (Dipstick) Negative (Negative); Leukocyte Negative (Negative); Nitrite Negative (Negative); Protein, Urine (Dipstick) Negative (Neg-Trace); Specific Gravity, Urine 1.003 (1.002-1.036); Urobilinogen 0.2 mg/dL (0.2-1.0)
== END 2018-12-08 00:48 | disposition home or self-care (01) ==
LOC: ERS 22:32
DX: E10.649 Type 1 diabetes mellitus with hypoglycemia without coma (principal); I11.0 Hypertensive heart disease with heart failure; I50.9 Heart failure, unspecified; F20.9 Schizophrenia, unspecified; F32.9 Major depressive disorder, single episode, unspecified; J45.909 Unspecified asthma, uncomplicated; Z86.19 Personal history of other infectious and parasitic diseases; Z79.899 Other long term (current) drug therapy
CPT/HCPCS: 36416; 81003; 99283

== ENCOUNTER 2019-06-26 16:46 | Emergency (ER) | payer OTHER ==
[~2019-06-26 16:46] MED LIST: Iopamidol-370 76% 500 ML 1 ML ONE
[2019-06-26] MEDS ORDERED: HYDROcodone/Acetaminophen 5/325 mg Tablet ONE (17:26)
[2019-06-26] MEDS ORDERED: Dexamethasone 10 MG/ML VIAL ONE (17:28)
[2019-06-26 17:30] LABS: #Basophils 0.1 thou/uL (0.0-0.2); #Eosinphils 0.8 thou/uL (0.0-0.7); #Lymphocytes 2.8 thou/uL (1.20-3.40); #Neutrophils 4.2 thou/uL (1.40-6.50); %Basophils 1.6 % (0.0-1.0); %Lymphocytes 31.3 % (21.0-51.0); %Monocytes 11.3 % (0.0-10.0); %Neutrophils 46.7 % (42.0-75.0); Hemoglobin 12.3 g/dL (14.0-18.0); Mean Corpuscular HGB CONC 34.2 g/dL (32.0-36.0); Mean Corpuscular Hemoglobin 30.2 pg (27.0-31.0); Mean Corpuscular Volume 88.2 fL (78.0-98.0); Mean Platelet Volume 7.8 fL (7.4-10.4); Platelet Count 294 thou/uL (130-400); RBC Distribution Width 14.4 % (11.5-14.5); Red Blood Cell (RBC) Count 4.08 mill/uL (4.70-6.10); White Blood Cell (WBC) Count 9.1 thou/uL (4.8-10.8)
[2019-06-26 17:57] LABS: ALT (SGPT) 33 U/L (8-55); AST (SGOT) 28 U/L (5-34); Albumin 3.9 g/dL (3.5-5.0); Alkaline Phosphatase 100 U/L (40-110); Anion Gap 9 mmol/L (10-20); BUN (Urea Nitrogen) 11 mg/dL (8.4-25.7); Bilirubin, Total 0.2 mg/dL (0.2-1.2); Calc. Creatinine Clearance 0 mL/min (70-130); Carbon Dioxide 29 mmol/L (22-29); Chloride 105 mmol/L (98-107); Estimated GFR-MDRD 81; Globulin 3.4 g/dL (2.4-3.5); Glucose 172 mg/dL (70-105); Potassium 3.8 mmol/L (3.5-5.1); Protein, Total 7.3 g/dL (6.0-8.3); Sodium 139 mmol/L (136-145)
--- NOTE | 2019-06-26 19:03 | CT ---
CT Neck Soft Tissue W Con History: Left-sided ear and neck pain Comparison: None. Findings: Mild hyperenhancement of the nasopharyngeal tonsils. No palatine tonsillar abscess. No significant cervical adenopathy. Possible missing teeth. No odontogenic abscess is appreciated alt raisa limited due to the extensive streak artifact. Globes are intact. No prevertebral edema. Moderate degenerative changes of the cervical spine. Lung apices are clear. Impression: No peritonsillar abscess or significant adenopathy. No sialoadenitis.
== END 2019-06-26 19:36 | disposition home or self-care (01) ==
LOC: ERS 16:46
DX: H66.92 Otitis media, unspecified, left ear (principal); J02.9 Acute pharyngitis, unspecified; J44.9 Chronic obstructive pulmonary disease, unspecified; E10.9 Type 1 diabetes mellitus without complications; I11.0 Hypertensive heart disease with heart failure; I50.9 Heart failure, unspecified; Z79.899 Other long term (current) drug therapy
CPT/HCPCS: 36415; 70491; 80053; 85025; J1100; Q9967

== ENCOUNTER 2019-06-28 21:58 | Emergency (ER) | payer OTHER ==
[2019-06-28] MEDS ORDERED: diphenhydrAMINE 50 MG/ML VIAL ONE (23:17)
[2019-06-28] MEDS ORDERED: Metoclopramide HCl 10 MG/2 ML VIAL ONE (23:17)
[2019-06-28 23:41] LABS: #Basophils 0.1 thou/uL (0.0-0.2); #Eosinphils 0.4 thou/uL (0.0-0.7); #Monocytes 1.1 thou/uL (0.11-0.59); #Neutrophils 5.2 thou/uL (1.40-6.50); %Basophils 1.1 % (0.0-1.0); %Eosinophils 4.5 % (0.0-10.0); %Lymphocytes 30.2 % (21.0-51.0); %Monocytes 11.6 % (0.0-10.0); %Neutrophils 52.6 % (42.0-75.0); Hemoglobin 12.4 g/dL (14.0-18.0); Mean Corpuscular HGB CONC 33.2 g/dL (32.0-36.0); Mean Corpuscular Hemoglobin 29.2 pg (27.0-31.0); Mean Corpuscular Volume 88.1 fL (78.0-98.0); Mean Platelet Volume 7.2 fL (7.4-10.4); Platelet Count 300 thou/uL (130-400); RBC Distribution Width 14.3 % (11.5-14.5); Red Blood Cell (RBC) Count 4.25 mill/uL (4.70-6.10); White Blood Cell (WBC) Count 9.8 thou/uL (4.8-10.8)
[2019-06-29 00:04] LABS: ALT (SGPT) 28 U/L (8-55); AST (SGOT) 21 U/L (5-34); Albumin 3.8 g/dL (3.5-5.0); Alkaline Phosphatase 98 U/L (40-110); Anion Gap 12 mmol/L (10-20); BUN (Urea Nitrogen) 10 mg/dL (8.4-25.7); Bilirubin, Total 0.2 mg/dL (0.2-1.2); Calc. Creatinine Clearance 0 mL/min (70-130); Calcium 8.7 mg/dL (7.8-10.44); Carbon Dioxide 29 mmol/L (22-29); Chloride 102 mmol/L (98-107); Estimated GFR-MDRD Greater than 90; Globulin 3.2 g/dL (2.4-3.5); Glucose 139 mg/dL (70-105); Potassium 3.5 mmol/L (3.5-5.1); Sodium 139 mmol/L (136-145)
[2019-06-29] MEDS ORDERED: Ketorolac Tromethamine 30 MG/ML VIAL ONE (02:02)
--- NOTE | 2019-06-29 06:32 | CT ---
CT BRAIN WITHOUT CONTRAST CTA BRAIN WITH IV CONTRAST AND 3D POSTPROCESSING CTA NECK WITH IV CONTRAST AND 3D POSTPROCESSING: HISTORY: Headache. FINDINGS: There is good contrast opacification and flow in the intra and extracranial carotid artery and verteb robasilar systems without evidence of stenosis, aneurysm, or major branch occlusion. No evidence of acute infarct, hemorrhage, midline shift, or abnormal extra-axial fluid collections ar e seen. The ventricular size is normal and the basilar cisterns are patent. The bony calvarium is int act. There is mucosal disease in left ethmoid air cells. There are patchy areas of decreased attenuation in the periventricular white matter consistent with c hronic small vessel ischemic disease. IMPRESSION: 1. No CT evidence of acute intracranial process. 2. Normal CTA of the neck and brain. POS: OFF
== END 2019-06-29 03:04 | disposition home or self-care (01) ==
LOC: ERS 21:58
DX: R51 Headache (principal); E10.9 Type 1 diabetes mellitus without complications; I11.0 Hypertensive heart disease with heart failure; I50.9 Heart failure, unspecified; J44.9 Chronic obstructive pulmonary disease, unspecified; Z87.891 Personal history of nicotine dependence
CPT/HCPCS: 70496; 70498; 80053; 85025; 85652; 86140; 96365; 96375; J1200; J1885; J2765; Q9967

== ENCOUNTER 2020-04-08 08:30 | Emergency (ER) | payer OTHER ==
[2020-04-08] MEDS ORDERED: Lidocaine 1% PF 5 ML VIAL ONE (08:59)
[2020-04-08] MEDS ORDERED: Ketorolac Tromethamine 30 MG/ML VIAL ONE (08:59)
[2020-04-08] MEDS ORDERED: Acetaminophen 500 MG TAB ONE (08:59)
== END 2020-04-08 09:20 | disposition home or self-care (01) ==
LOC: ERS 08:30
DX: S39.012A Strain of muscle, fascia and tendon of lower back, initial encounter (principal); E10.9 Type 1 diabetes mellitus without complications; I11.0 Hypertensive heart disease with heart failure; I50.9 Heart failure, unspecified; J44.9 Chronic obstructive pulmonary disease, unspecified; F20.0 Paranoid schizophrenia; Z79.899 Other long term (current) drug therapy; X50.1XXA Overexertion from prolonged static or awkward postures, initial encounter
CPT/HCPCS: 96372; 99283; J1885

== ENCOUNTER 2020-08-26 18:02 | Emergency (ER) | payer OTHER ==
[2020-08-27 06:58] LABS: SARS-CoV-2 PCR by NAA Not Detected (NotDetected)
== END 2020-08-26 20:40 | disposition home or self-care (01) ==
LOC: ERS 18:02
DX: R05 Cough (principal); J34.89 Other specified disorders of nose and nasal sinuses; J02.9 Acute pharyngitis, unspecified; M79.10 Myalgia, unspecified site; R50.9 Fever, unspecified; Z20.822 Contact with and (suspected) exposure to COVID-19; E10.9 Type 1 diabetes mellitus without complications; I11.0 Hypertensive heart disease with heart failure; I50.9 Heart failure, unspecified; J44.9 Chronic obstructive pulmonary disease, unspecified
CPT/HCPCS: 87635; 99282; U0003; U0005

== ENCOUNTER 2020-11-22 08:53 | Emergency (ER) | payer OTHER ==
[2020-11-22] MEDS ORDERED: methylPREDNISolone Sod Succ/PF 125 MG/2 ML VIAL ONE (09:40)
[2020-11-22] MEDS ORDERED: Magnesium 2 GM/50 ML BAG (IN WATER) ONE (09:40)
[2020-11-22] MEDS ORDERED: Ondansetron PF 4 MG/2 ML Vial ONE (10:01)
[2020-11-22 10:06] LABS: #Basophils 0.2 thou/uL (0.0-0.2); #Eosinphils 1.5 thou/uL (0.0-0.7); #Lymphocytes 2.1 thou/uL (1.20-3.40); #Monocytes 0.7 thou/uL (0.11-0.59); #Neutrophils 3.8 thou/uL (1.40-6.50); %Basophils 2.2 % (0.0-1.0); %Eosinophils 18.2 % (0.0-10.0); %Lymphocytes 25.6 % (21.0-51.0); %Monocytes 8.1 % (0.0-10.0); %Neutrophils 45.9 % (42.0-75.0); Hemoglobin 13.8 g/dL (14.0-18.0); Mean Corpuscular HGB CONC 31.6 g/dL (32.0-36.0); Mean Corpuscular Hemoglobin 27.4 pg (27.0-31.0); Mean Corpuscular Volume 86.8 fL (78.0-98.0); Mean Platelet Volume 7.8 fL (7.4-10.4); Platelet Count 363 thou/uL (130-400); RBC Distribution Width 14.5 % (11.5-14.5); Red Blood Cell (RBC) Count 5.04 mill/uL (4.70-6.10); White Blood Cell (WBC) Count 8.2 thou/uL (4.8-10.8)
[2020-11-22 10:27] LABS: ALT (SGPT) 32 U/L (8-55); AST (SGOT) 31 U/L (5-34); Albumin 4.3 g/dL (3.5-5.0); Alkaline Phosphatase 111 U/L (40-110); Anion Gap 16 mmol/L (10-20); BUN (Urea Nitrogen) 18 mg/dL (8.4-25.7); Bilirubin, Total 0.5 mg/dL (0.2-1.2); Calc. Creatinine Clearance 0 mL/min (70-130); Calcium 9.6 mg/dL (7.8-10.44); Carbon Dioxide 22 mmol/L (22-29); Chloride 104 mmol/L (98-107); Globulin 3.9 g/dL (2.4-3.5); Glucose 159 mg/dL (70-105); Potassium 4.6 mmol/L (3.5-5.1); Protein, Total 8.2 g/dL (6.0-8.3); Sodium 137 mmol/L (136-145)
== END 2020-11-22 12:44 | disposition home or self-care (01) ==
LOC: ERS 08:53
DX: J44.1 Chronic obstructive pulmonary disease with (acute) exacerbation (principal); E10.9 Type 1 diabetes mellitus without complications; I11.0 Hypertensive heart disease with heart failure; I50.9 Heart failure, unspecified; Z79.899 Other long term (current) drug therapy
CPT/HCPCS: 71045; 80053; 84484; 85025; 93005; 94644; 94760; 96365; 96375; J2405; J2930; J3475; J7620

== ENCOUNTER 2021-06-26 18:20 | Emergency (ER) | payer OTHER ==
[2021-06-26] MEDS ORDERED: Lidocaine 1% PF 5 ML VIAL ONE (18:46)
[2021-06-26] MEDS ORDERED: Morphine 4 MG/ML VIAL ONE (19:02)
[2021-06-26] MEDS ORDERED: Boostrix 0.5 ML (Tdap) VIAL ONE (19:02)
== END 2021-06-26 19:14 | disposition home or self-care (01) ==
LOC: ERS 18:20
DX: L03.011 Cellulitis of right finger (principal); E11.9 Type 2 diabetes mellitus without complications; I11.0 Hypertensive heart disease with heart failure; I50.9 Heart failure, unspecified; J44.9 Chronic obstructive pulmonary disease, unspecified
CPT/HCPCS: 26011; 90471; 90715; 96372; J2270

== ENCOUNTER 2021-07-03 04:28 | Emergency (ER) | payer OTHER ==
[2021-07-03] MEDS ORDERED: Dextrose 50% Abboject 50 ML SYRINGE ONE (04:40)
== END 2021-07-03 07:58 | disposition home or self-care (01) ==
LOC: ERS 04:28
DX: E10.649 Type 1 diabetes mellitus with hypoglycemia without coma (principal); I11.0 Hypertensive heart disease with heart failure; I50.9 Heart failure, unspecified; Z79.4 Long term (current) use of insulin; Z79.899 Other long term (current) drug therapy
CPT/HCPCS: 36416; 96374

== ENCOUNTER 2021-12-10 03:26 | Emergency (ER) | payer OTHER ==
[2021-12-10] MEDS ORDERED: Lorazepam 2 MG/ML VIAL ONE (03:33)
[2021-12-10 04:10] LABS: Hemoglobin 14.9 g/dL (14.0-18.0); Mean Corpuscular HGB CONC 29.4 g/dL (32.0-36.0); Mean Corpuscular Hemoglobin 26.7 pg (27.0-31.0); Mean Corpuscular Volume 90.7 fL (78.0-98.0); Mean Platelet Volume 7.6 fL (7.4-10.4); Platelet Count 402 thou/uL (130-400); RBC Distribution Width 14.4 % (11.5-14.5); Red Blood Cell (RBC) Count 5.59 mill/uL (4.70-6.10); White Blood Cell (WBC) Count 9.3 thou/uL (4.8-10.8)
[2021-12-10 04:26] LABS: ALT (SGPT) 53 U/L (8-55); AST (SGOT) 57 U/L (5-34); Acetaminophen Less than 10.0 mcg/mL (10.0-30.0); Albumin 4.8 g/dL (3.5-5.0); Alcohol 33 mg/dL (Less than 10); Alkaline Phosphatase 101 U/L (40-110); Anion Gap 30 mmol/L (10-20); BUN (Urea Nitrogen) 27 mg/dL (8.4-25.7); Bilirubin, Total 0.9 mg/dL (0.2-1.2); CK (CPK) 1457 U/L (30-200); Calc. Creatinine Clearance 0 mL/min (70-130); Calcium 9.7 mg/dL (7.8-10.44); Carbon Dioxide 13 mmol/L (22-29); Chloride 99 mmol/L (98-107); Globulin 4.2 g/dL (2.4-3.5); Glucose 250 mg/dL (70-105); Lipase 25 U/L (8-78); Potassium 4.8 mmol/L (3.5-5.1); Salicylate Less than 8.0 mg/dL (15.0-30.0); Sodium 137 mmol/L (136-145)
[2021-12-10 04:32] LABS: #Lymphocytes 1.8 thou/uL (1.20-3.40); #Monocytes 0.8 thou/uL (0.11-0.59); #Neutrophils 6.6 thou/uL (1.40-6.50); %Basophils 0.5 % (0.0-1.0); %Eosinophils 0.3 % (0.0-10.0); %Lymphocytes 19.4 % (21.0-51.0); %Monocytes 8.8 % (0.0-10.0); RBC Morphology Normal
[2021-12-10 04:46] LABS: Bacteria/HPF None Seen HPF (None Seen); Bilirubin Negative (Negative); Blood, Urine Negative (Negative); Clarity Clear (Clear); Glucose, Urine (Dipstick) 50 mg/dL (Negative); Ketone, Urine Trace mg/dL (Negative); Leukocyte Negative Leu/uL (Negative); Nitrite Negative (Negative); Protein, Urine (Dipstick) 50 mg/dL (Neg-Trace); RBC/HPF 0-3 HPF (0-3); Specific Gravity, Urine 1.024 (1.002-1.036); Squamous Epithelial 0-3 HPF (0-3); WBC/HPF 0-3 HPF (0-3)
[2021-12-10 04:52] LABS: Amphetamine Not Detected (NotDetected); Barbiturates Screen Not Detected (NotDetected); Benzodiazepine Screen Not Detected (NotDetected); Cocaine Metabolite Screen Detected (NotDetected); Methadone Not Detected (NotDetected); Methamphetamine Not Detected (NotDetected); Opiate Screen Not Detected (NotDetected); Oxycodone Screen Not Detected (NotDetected); Phencyclidine (PCP) Not Detected (NotDetected); THC/Cannabinoid Screen Detected (NotDetected); Tricyclic Screen Not Detected (NotDetected)
== END 2021-12-10 11:00 | disposition home or self-care (01) ==
LOC: ERS 03:26
DX: F14.10 Cocaine abuse, uncomplicated (principal); N17.9 Acute kidney failure, unspecified; F10.129 Alcohol abuse with intoxication, unspecified; M25.512 Pain in left shoulder; R00.0 Tachycardia, unspecified; I11.0 Hypertensive heart disease with heart failure; I50.9 Heart failure, unspecified; J44.9 Chronic obstructive pulmonary disease, unspecified; E10.9 Type 1 diabetes mellitus without complications; W19.XXXA Unspecified fall, initial encounter; Y90.1 Blood alcohol level of 20-39 mg/100 ml; Z87.19 Personal history of other diseases of the digestive system; Z79.899 Other long term (current) drug therapy
CPT/HCPCS: 36416; 51702; 71045; 80053; 80306; 80307; 81003; 81015; 82550; 83690; 84484; 85025; 93005; 96374; J2060

== ENCOUNTER 2022-03-10 09:22 | Emergency (ER) | payer OTHER ==
[2022-03-10] MEDS ORDERED: predniSONE 20 MG TAB ONE (09:42)
[2022-03-10] MEDS ORDERED: Magnesium 2 GM/50 ML BAG (IN WATER) ONE (09:42)
[2022-03-10 09:53] LABS: #Basophils 0.1 thou/uL (0.0-0.2); #Lymphocytes 2.4 thou/uL (1.20-3.40); #Monocytes 0.8 thou/uL (0.11-0.59); #Neutrophils 3.3 thou/uL (1.40-6.50); %Basophils 1.5 % (0.0-1.0); %Eosinophils 13.3 % (0.0-10.0); %Lymphocytes 32.1 % (21.0-51.0); %Monocytes 10.2 % (0.0-10.0); Hemoglobin 16.5 g/dL (14.0-18.0); Mean Corpuscular HGB CONC 33.3 g/dL (32.0-36.0); Mean Corpuscular Hemoglobin 30.3 pg (27.0-31.0); Mean Corpuscular Volume 91.1 fL (78.0-98.0); Mean Platelet Volume 7.9 fL (7.4-10.4); Platelet Count 304 thou/uL (130-400); RBC Distribution Width 12.8 % (11.5-14.5); Red Blood Cell (RBC) Count 5.43 mill/uL (4.70-6.10); White Blood Cell (WBC) Count 7.6 thou/uL (4.8-10.8)
[2022-03-10] MEDS ORDERED: Doxycycline 100 MG CAP PO SCH (10:00)
[2022-03-10 10:14] LABS: ALT (SGPT) 29 U/L (8-55); AST (SGOT) 29 U/L (5-34); Albumin 4.6 g/dL (3.5-5.0); Alkaline Phosphatase 95 U/L (40-110); Anion Gap 17 mmol/L (10-20); BUN (Urea Nitrogen) 8 mg/dL (8.4-25.7); Bilirubin, Total 0.6 mg/dL (0.2-1.2); Calc. Creatinine Clearance 0 mL/min (70-130); Calcium 9.7 mg/dL (7.8-10.44); Carbon Dioxide 21 mmol/L (22-29); Chloride 105 mmol/L (98-107); Estimated GFR 81; Globulin 3.9 g/dL (2.4-3.5); Glucose 92 mg/dL (70-105); Potassium 4.2 mmol/L (3.5-5.1); Protein, Total 8.5 g/dL (6.0-8.3); Sodium 139 mmol/L (136-145)
== END 2022-03-10 11:54 | disposition home or self-care (01) ==
LOC: ERS 09:22
DX: J45.901 Unspecified asthma with (acute) exacerbation (principal); E10.9 Type 1 diabetes mellitus without complications; I11.0 Hypertensive heart disease with heart failure; I50.9 Heart failure, unspecified; Z79.899 Other long term (current) drug therapy
CPT/HCPCS: 71045; 80053; 84484; 85025; 93005; 96365; J3475; J7512; J7620

== ENCOUNTER 2022-05-04 16:02 | Emergency (ER) | payer OTHER ==
[2022-05-04] MEDS ORDERED: methylPREDNISolone Sod Succ/PF 125 MG/2 ML VIAL ONE (16:22)
[2022-05-04] MEDS ORDERED: Magnesium 2 GM/50 ML BAG (IN WATER) ONE (16:22)
[2022-05-04 16:51] LABS: #Basophils 0.1 thou/uL (0.0-0.2); #Eosinphils 1.4 thou/uL (0.0-0.7); #Lymphocytes 3.6 thou/uL (1.20-3.40); #Monocytes 1.2 thou/uL (0.11-0.59); #Neutrophils 4.4 thou/uL (1.40-6.50); %Basophils 1.4 % (0.0-1.0); %Eosinophils 12.8 % (0.0-10.0); %Lymphocytes 33.4 % (21.0-51.0); %Neutrophils 41.5 % (42.0-75.0); Hemoglobin 16.2 g/dL (14.0-18.0); Mean Corpuscular Hemoglobin 31.1 pg (27.0-31.0); Mean Corpuscular Volume 94.2 fL (78.0-98.0); Mean Platelet Volume 8.1 fL (7.4-10.4); Platelet Count 300 thou/uL (130-400); RBC Distribution Width 12.7 % (11.5-14.5); Red Blood Cell (RBC) Count 5.21 mill/uL (4.70-6.10); White Blood Cell (WBC) Count 10.6 thou/uL (4.8-10.8)
[2022-05-04] MEDS ORDERED: Albuterol Sulfate 2.5 mg/3 ml Neb ONE (16:56)
[2022-05-04 17:06] LABS: ALT (SGPT) 30 U/L (8-55); AST (SGOT) 27 U/L (5-34); Albumin 4.4 g/dL (3.5-5.0); Alkaline Phosphatase 104 U/L (40-110); Anion Gap 15 mmol/L (10-20); BUN (Urea Nitrogen) 10 mg/dL (8.4-25.7); Bilirubin, Total 0.7 mg/dL (0.2-1.2); Calc. Creatinine Clearance 0 mL/min (70-130); Calcium 9.4 mg/dL (7.8-10.44); Carbon Dioxide 22 mmol/L (22-29); Chloride 102 mmol/L (98-107); Estimated GFR 79; Glucose 182 mg/dL (70-105); Potassium 3.8 mmol/L (3.5-5.1); Protein, Total 8.4 g/dL (6.0-8.3); Sodium 135 mmol/L (136-145)
[2022-05-04] MEDS ORDERED: Acetaminophen 500 MG TAB ONE (17:22)
== END 2022-05-04 18:30 | disposition home or self-care (01) ==
LOC: ERS 16:02
DX: J45.901 Unspecified asthma with (acute) exacerbation (principal); I11.0 Hypertensive heart disease with heart failure; I50.9 Heart failure, unspecified; E11.9 Type 2 diabetes mellitus without complications; J44.9 Chronic obstructive pulmonary disease, unspecified
CPT/HCPCS: 36415; 71045; 80053; 83735; 84484; 85025; 93005; 94640; 94644; 96365; 96375; J2930; J3475; J7611; J7620

== ENCOUNTER 2022-05-25 03:36 | Inpatient (IN) | payer OTHER ==
[2022-05-25] MEDS ORDERED: Magnesium 2 GM/50 ML BAG (IN WATER) ONE (03:52)
[2022-05-25] MEDS ORDERED: methylPREDNISolone Sod Succ/PF 125 MG/2 ML VIAL ONE (04:02)
[2022-05-25] MEDS ORDERED: Albuterol Sulfate 2.5 mg/0.5 ml Neb ONE ×2 (05:02→06:06)
[2022-05-25] MEDS ORDERED: Ipratropium Bromide 2.5 ml Neb ONE ×2 (05:02→06:06)
[2022-05-25 07:30] LABS: #Basophils 0.1 thou/uL (0.0-0.2); #Lymphocytes 3.2 thou/uL (1.20-3.40); #Monocytes 1.1 thou/uL (0.11-0.59); #Neutrophils 3.5 thou/uL (1.40-6.50); %Basophils 1.2 % (0.0-1.0); %Eosinophils 19.8 % (0.0-10.0); %Lymphocytes 32.1 % (21.0-51.0); %Monocytes 11.1 % (0.0-10.0); %Neutrophils 35.8 % (42.0-75.0); Hemoglobin 15.6 g/dL (14.0-18.0); Mean Corpuscular HGB CONC 32.1 g/dL (32.0-36.0); Mean Corpuscular Volume 93.6 fL (78.0-98.0); Mean Platelet Volume 8.6 fL (7.4-10.4); Platelet Count 311 thou/uL (130-400); RBC Distribution Width 12.8 % (11.5-14.5); Red Blood Cell (RBC) Count 5.19 mill/uL (4.70-6.10); White Blood Cell (WBC) Count 9.9 thou/uL (4.8-10.8)
[2022-05-25] MEDS ORDERED: Ondansetron PF 4 MG/2 ML Vial IVP PRN (07:39)
[2022-05-25] MEDS ORDERED: Ondansetron ODT 4 MG TAB PO PRN (07:39)
[2022-05-25 07:42] LABS: Anion Gap 15 mmol/L (10-20); BUN (Urea Nitrogen) 11 mg/dL (8.4-25.7); Calc. Creatinine Clearance 0 mL/min (70-130); Calcium 9.4 mg/dL (7.8-10.44); Carbon Dioxide 23 mmol/L (22-29); Chloride 105 mmol/L (98-107); Estimated GFR 81; Potassium 3.9 mmol/L (3.5-5.1); Sodium 139 mmol/L (136-145)
[2022-05-25] MEDS ORDERED: HumaLOG 300 UNITS/3 ML VIAL SC PRN (07:43)
[2022-05-25] MEDS ORDERED: Dextrose 50% Abboject 50 ML SYRINGE SLOW IVP PRN ×2 (07:43→16:05)
[2022-05-25] MEDS ORDERED: Dextrose 5% in Water 1,000 ML IV PRN ×2 (07:43→16:05)
[2022-05-25 07:50] LABS: Glucose 52 mg/dL (70-105)
[2022-05-25] MEDS ORDERED: Mometasone 200 MCG/Formoterol 5 MCG 120 PUFF INHALER INH SCH (08:45)
[2022-05-25] MEDS ORDERED: Benzonatate 100 MG CAP PO PRN (08:46)
[2022-05-25] MEDS ORDERED: guaiFENesin/DM ER PO SCH (09:00)
[2022-05-25] MEDS ORDERED: Cepastat Lozenges 1 LOZ PO PRN (09:20)
[2022-05-25 09:53] LABS: Troponin I 0.011 ng/mL (< 0.028)
[2022-05-25] MEDS ORDERED: Ipratropium Bromide 2.5 ml Neb NEB SCH ×2 (10:00→10:30)
[2022-05-25 10:08] LABS: Amphetamine Not Detected (NotDetected); Barbiturates Screen Not Detected (NotDetected); Benzodiazepine Screen Not Detected (NotDetected); Cocaine Metabolite Screen Not Detected (NotDetected); Methadone Not Detected (NotDetected); Methamphetamine Not Detected (NotDetected); Opiate Screen Not Detected (NotDetected); Oxycodone Screen Not Detected (NotDetected); Phencyclidine (PCP) Not Detected (NotDetected); THC/Cannabinoid Screen Detected (NotDetected); Tricyclic Screen Not Detected (NotDetected)
[2022-05-25] MEDS ORDERED: Albuterol Sulfate 2.5 mg/3 ml Neb NEB SCH (10:30)
[2022-05-25] MEDS: Enoxaparin Sodium 40 MG/0.4 ML SYRINGE SC SCH (10:39)
[2022-05-25] MEDS ORDERED: methylPREDNISolone Sod Succ 40 MG VIAL IVP SCH ×2 (12:00)
[2022-05-25] MEDS: Acetaminophen 325 MG TAB PO PRN ×2 (16:32→21:25)
[2022-05-25] MEDS: HumaLOG 300 UNITS/3 ML VIAL SC PRN ×2 (16:33→21:18)
[2022-05-25] MEDS ORDERED: Insulin Glargine 30 UNITS/0.3 ML VIAL SC SCH (16:45)
[2022-05-25] MEDS: hydrALAZINE 20 MG/ML VIAL SLOW IVP PRN ×2 (17:04→23:48)
[2022-05-25] MEDS: traMADol HCl 50 MG TAB PO PRN ×2 (18:19→23:48)
[2022-05-25] MEDS: Mometasone 200 MCG/Formoterol 5 MCG 120 PUFF INHALER INH SCH (19:43)
[2022-05-25] MEDS ORDERED: guaiFENesin ER 600 MG TAB PO SCH (21:00)
[2022-05-25] MEDS: NIFEdipine XL 60 MG TAB PO SCH (21:17)
[2022-05-25] MEDS: Gabapentin 300 MG CAP PO SCH (21:17)
[2022-05-25] MEDS: Montelukast Sodium 10 mg Tablet PO SCH (21:17)
[2022-05-25] MEDS: methylPREDNISolone Sod Succ 40 MG VIAL IVP SCH (21:18)
[2022-05-26] MEDS: HumaLOG 300 UNITS/3 ML VIAL SC PRN ×3 (05:27→21:28)
[2022-05-26] MEDS: methylPREDNISolone Sod Succ 40 MG VIAL IVP SCH ×3 (05:27→21:27)
[2022-05-26 06:52] LABS: #Lymphocytes 1.1 thou/uL (1.20-3.40); #Monocytes 1.1 thou/uL (0.11-0.59); #Neutrophils 10.2 thou/uL (1.40-6.50); %Basophils 0.3 % (0.0-1.0); %Eosinophils 0.1 % (0.0-10.0); %Lymphocytes 8.8 % (21.0-51.0); %Monocytes 8.8 % (0.0-10.0); Hemoglobin 13.6 g/dL (14.0-18.0); Mean Corpuscular HGB CONC 32.9 g/dL (32.0-36.0); Mean Corpuscular Hemoglobin 30.5 pg (27.0-31.0); Mean Corpuscular Volume 92.6 fL (78.0-98.0); Mean Platelet Volume 8.2 fL (7.4-10.4); Platelet Count 277 thou/uL (130-400); RBC Distribution Width 12.3 % (11.5-14.5); Red Blood Cell (RBC) Count 4.47 mill/uL (4.70-6.10); White Blood Cell (WBC) Count 12.4 thou/uL (4.8-10.8)
[2022-05-26 07:25] LABS: ALT (SGPT) 26 U/L (8-55); AST (SGOT) 17 U/L (5-34); Albumin 3.8 g/dL (3.5-5.0); Alkaline Phosphatase 77 U/L (40-110); Anion Gap 14 mmol/L (10-20); BUN (Urea Nitrogen) 20 mg/dL (8.4-25.7); Bilirubin, Total 0.4 mg/dL (0.2-1.2); Calc. Creatinine Clearance 0 mL/min (70-130); Calcium 8.8 mg/dL (7.8-10.44); Carbon Dioxide 22 mmol/L (22-29); Chloride 104 mmol/L (98-107); Estimated GFR 81; Globulin 3.1 g/dL (2.4-3.5); Glucose 174 mg/dL (70-105); Potassium 4.3 mmol/L (3.5-5.1); Protein, Total 6.9 g/dL (6.0-8.3); Sodium 136 mmol/L (136-145)
[2022-05-26] MEDS: Mometasone 200 MCG/Formoterol 5 MCG 120 PUFF INHALER INH SCH ×2 (07:48→18:17)
[2022-05-26] MEDS: Gabapentin 300 MG CAP PO SCH ×2 (08:31→21:25)
[2022-05-26] MEDS: Losartan 25 MG TAB PO SCH (08:32)
[2022-05-26] MEDS: guaiFENesin ER 600 MG TAB PO SCH ×2 (08:32→21:26)
[2022-05-26] MEDS: Insulin Glargine 30 UNITS/0.3 ML VIAL SC SCH (08:32)
[2022-05-26] MEDS: Enoxaparin Sodium 40 MG/0.4 ML SYRINGE SC SCH (08:36)
[2022-05-26] MEDS ORDERED: Ketorolac Tromethamine 30 MG/ML VIAL IVP PRN (08:37)
[2022-05-26] MEDS ORDERED: Insulin Glargine 30 UNITS/0.3 ML VIAL SC SCH (09:00)
[2022-05-26] MEDS ORDERED: Losartan 25 MG TAB PO SCH (09:00)
[2022-05-26] MEDS ORDERED: Nicotine 14 MG PATCH TD SCH (09:00)
[2022-05-26 12:29] VITALS: BMI 28.7
[2022-05-26] MEDS ORDERED: Rosuvastatin 20 MG TAB PO SCH (21:00)
[2022-05-26] MEDS: Montelukast Sodium 10 mg Tablet PO SCH (21:25)
[2022-05-26] MEDS: NIFEdipine XL 60 MG TAB PO SCH (21:26)
[2022-05-26] MEDS: Famotidine 20 MG TAB PO SCH (21:26)
[2022-05-26] MEDS: Acetaminophen 325 MG TAB PO PRN (21:27)
[2022-05-27] MEDS: HumaLOG 300 UNITS/3 ML VIAL SC PRN (05:33)
[2022-05-27] MEDS: methylPREDNISolone Sod Succ 40 MG VIAL IVP SCH ×2 (05:33→13:56)
[2022-05-27 06:39] LABS: #Monocytes 0.9 thou/uL (0.11-0.59); #Neutrophils 11.1 thou/uL (1.40-6.50); %Basophils 0.1 % (0.0-1.0); %Lymphocytes 7.4 % (21.0-51.0); %Monocytes 6.6 % (0.0-10.0); %Neutrophils 85.8 % (42.0-75.0); Hemoglobin 13.4 g/dL (14.0-18.0); Mean Corpuscular HGB CONC 32.1 g/dL (32.0-36.0); Mean Corpuscular Hemoglobin 30.2 pg (27.0-31.0); Mean Platelet Volume 8.2 fL (7.4-10.4); Platelet Count 281 thou/uL (130-400); RBC Distribution Width 12.5 % (11.5-14.5); Red Blood Cell (RBC) Count 4.45 mill/uL (4.70-6.10)
[2022-05-27 06:51] LABS: Anion Gap 12 mmol/L (10-20); BUN (Urea Nitrogen) 28 mg/dL (8.4-25.7); Calc. Creatinine Clearance 82 mL/min (70-130); Calcium 8.5 mg/dL (7.8-10.44); Carbon Dioxide 22 mmol/L (22-29); Chloride 102 mmol/L (98-107); Estimated GFR 66; Glucose 374 mg/dL (70-105); Potassium 4.5 mmol/L (3.5-5.1); Sodium 131 mmol/L (136-145)
[2022-05-27] MEDS: Mometasone 200 MCG/Formoterol 5 MCG 120 PUFF INHALER INH SCH (07:08)
[2022-05-27 07:48] VITALS: BP 168/77; TEMP 97.7
[2022-05-27] MEDS: Insulin Glargine 30 UNITS/0.3 ML VIAL SC SCH (08:27)
[2022-05-27] MEDS: Enoxaparin Sodium 40 MG/0.4 ML SYRINGE SC SCH (08:27)
[2022-05-27] MEDS: Losartan 25 MG TAB PO SCH (08:28)
[2022-05-27] MEDS: Gabapentin 300 MG CAP PO SCH (08:29)
[2022-05-27] MEDS: guaiFENesin ER 600 MG TAB PO SCH (08:29)
[2022-05-27] MEDS: Famotidine 20 MG TAB PO SCH (08:30)
[2022-05-27] MEDS ORDERED: HumaLOG 300 UNITS/3 ML VIAL SC PRN (09:01)
[2022-05-27] MEDS ORDERED: Doxycycline 100 MG CAP PO SCH ×2 (12:30→21:00)
[2022-05-27] MEDS ORDERED: Insulin Glargine 30 UNITS/0.3 ML VIAL SC SCH ×2 (12:30→21:00)
[2022-05-28] MEDS ORDERED: Insulin Glargine 30 UNITS/0.3 ML VIAL SC SCH (09:00)
== END 2022-05-27 17:32 | disposition home or self-care (01) | DRG 202 ==
LOC: SUATTDRO 03:36 → ERS 03:36 → T4-A 09:09
PROVIDERS: ADMIT Internal Medicine; ATTEND Internal Medicine
DX: J45.901 Unspecified asthma with (acute) exacerbation (principal); F20.0 Paranoid schizophrenia; J44.1 Chronic obstructive pulmonary disease with (acute) exacerbation; I25.10 Atherosclerotic heart disease of native coronary artery without angina pectoris; I10 Essential (primary) hypertension; E78.5 Hyperlipidemia, unspecified; E11.42 Type 2 diabetes mellitus with diabetic polyneuropathy; K21.9 Gastro-esophageal reflux disease without esophagitis; B19.20 Unspecified viral hepatitis C without hepatic coma; Z20.822 Contact with and (suspected) exposure to COVID-19; Z79.899 Other long term (current) drug therapy; Z79.4 Long term (current) use of insulin; Z79.52 Long term (current) use of systemic steroids
CPT/HCPCS: 36415; 36416; 71045; 76881; 80048; 80053; 80306; 83880; 84484; 85025; 94640; 94799; 96374; 96375; J0360; J1650; J1815; J2920; J2930; J3475; J7611; J7620; U0003; U0005

== ENCOUNTER 2022-06-16 12:55 | Emergency (ER) | payer OTHER ==
[2022-06-16] MEDS ORDERED: Cyclobenzaprine 10 MG TAB ONE (16:06)
[2022-06-16] MEDS ORDERED: Ketorolac Tromethamine 30 MG/ML VIAL ONE (16:06)
== END 2022-06-16 16:30 | disposition home or self-care (01) ==
LOC: ERS 12:55
DX: M62.838 Other muscle spasm (principal)
CPT/HCPCS: 96372; 99282; J1885

== ENCOUNTER 2022-12-05 08:31 | Emergency (ER) | payer OTHER ==
[2022-12-05] MEDS ORDERED: predniSONE 20 MG TAB ONE ×2 (10:25)
[2022-12-05] MEDS ORDERED: Magnesium 2 GM/50 ML BAG (IN WATER) ONE (10:25)
[2022-12-05 10:37] LABS: #Basophils 0.1 thou/uL (0.0-0.2); #Eosinphils 0.9 thou/uL (0.0-0.7); #Lymphocytes 2.5 thou/uL (1.20-3.40); #Monocytes 0.9 thou/uL (0.11-0.59); #Neutrophils 4.6 thou/uL (1.40-6.50); %Basophils 1.2 % (0.0-1.0); %Eosinophils 9.9 % (0.0-10.0); %Lymphocytes 27.7 % (21.0-51.0); %Neutrophils 51.2 % (42.0-75.0); Mean Corpuscular HGB CONC 33.5 g/dL (32.0-36.0); Mean Corpuscular Volume 89.5 fl (78.0-98.0); Mean Platelet Volume 7.5 fL (7.4-10.4); Platelet Count 360 10x3/uL (130-400); RBC Distribution Width 13.3 % (11.5-14.5); Red Blood Cell (RBC) Count 5.33 mill/uL (4.70-6.10)
[2022-12-05 11:06] LABS: ALT (SGPT) 19 U/L (8-55); AST (SGOT) 24 U/L (5-34); Albumin 4.5 g/dL (3.5-5.0); Alkaline Phosphatase 96 U/L (40-110); Anion Gap 17 mmol/L (10-20); BUN (Urea Nitrogen) 15 mg/dL (8.4-25.7); Bilirubin, Total 0.6 mg/dL (0.2-1.2); Calc. Creatinine Clearance 0 mL/min (70-130); Calcium 9.8 mg/dL (7.8-10.44); Carbon Dioxide 20 mmol/L (22-29); Chloride 102 mmol/L (98-107); Estimated GFR 68; Globulin 4.1 g/dL (2.4-3.5); Glucose 190 mg/dL (70-105); Potassium 4.1 mmol/L (3.5-5.1); Protein, Total 8.6 g/dL (6.0-8.3); Sodium 135 mmol/L (136-145)
[2022-12-05] MEDS ORDERED: Azithromycin 250 MG TAB ONE (11:49)
[2022-12-05] MEDS ORDERED: Ipratropium/Albuterol 3 ML NEB ONE (12:02)
[2022-12-05] MEDS ORDERED: cefTRIAXone (ROCEPHIN) 1 GM VIAL ONE (12:36)
== END 2022-12-05 13:52 | disposition home or self-care (01) ==
LOC: ERS 08:31
DX: J45.901 Unspecified asthma with (acute) exacerbation (principal); I10 Essential (primary) hypertension; E10.9 Type 1 diabetes mellitus without complications; Z79.4 Long term (current) use of insulin
CPT/HCPCS: 36415; 71045; 80053; 84484; 85025; 93005; 96365; 96366; 96367; J0696; J3475; J7512; J7620

== ENCOUNTER 2023-02-02 10:52 | Emergency (ER) | payer OTHER ==
[2023-02-02 11:34] LABS: #Basophils 0.1 thou/uL (0.0-0.2); #Eosinphils 1.1 thou/uL (0.0-0.7); #Monocytes 1.2 thou/uL (0.11-0.59); #Neutrophils 6.5 thou/uL (1.40-6.50); %Basophils 1.1 % (0.0-1.0); %Eosinophils 10.4 % (0.0-10.0); %Lymphocytes 16.2 % (21.0-51.0); %Monocytes 11.2 % (0.0-10.0); %Neutrophils 60.9 % (42.0-75.0); Hemoglobin 14.6 g/dL (14.0-18.0); Mean Corpuscular HGB CONC 34.2 g/dL (32.0-36.0); Mean Corpuscular Hemoglobin 29.4 pg (27.0-31.0); Mean Corpuscular Volume 86.1 fl (78.0-98.0); Mean Platelet Volume 9.8 fL (7.4-10.4); Platelet Count 364 10x3/uL (130-400); RBC Distribution Width 13.8 % (11.5-14.5); Red Blood Cell (RBC) Count 4.96 mill/uL (4.70-6.10); White Blood Cell (WBC) Count 10.6 10x3/uL (4.8-10.8)
[2023-02-02 11:57] LABS: ALT (SGPT) 24 U/L (8-55); AST (SGOT) 23 U/L (5-34); Albumin 4.2 g/dL (3.5-5.0); Alkaline Phosphatase 89 U/L (40-110); Anion Gap 15 mmol/L (10-20); BUN (Urea Nitrogen) 12 mg/dL (8.4-25.7); Bilirubin, Total 0.7 mg/dL (0.2-1.2); Calc. Creatinine Clearance 0 mL/min (70-130); Calcium 9.3 mg/dL (7.8-10.44); Carbon Dioxide 22 mmol/L (22-29); Chloride 105 mmol/L (98-107); Estimated GFR 74; Glucose 112 mg/dL (70-105); Potassium 3.8 mmol/L (3.5-5.1); Protein, Total 8.2 g/dL (6.0-8.3); Sodium 138 mmol/L (136-145)
[2023-02-02] MEDS ORDERED: methylPREDNISolone Sod Succ/PF 125 MG/2 ML VIAL ONE (12:22)
[2023-02-02] MEDS ORDERED: Ipratropium/Albuterol 3 ML NEB ONE (12:22)
[2023-02-02] MEDS ORDERED: Magnesium 2 GM/50 ML BAG (IN WATER) ONE (12:22)
[2023-02-02] MEDS ORDERED: Albuterol 2.5 MG/0.5 ML NEB ONE ×4 (13:33→13:35)
[2023-02-02] MEDS ORDERED: Ipratropium Bromide 2.5 ml Neb ONE (13:36)
[2023-02-02 13:44] LABS: SARS-CoV-2 NAA Rapid Test Not Detected (NotDetected)
== END 2023-02-02 16:45 | disposition left against medical advice (07) ==
LOC: ERS 10:52
DX: J45.901 Unspecified asthma with (acute) exacerbation (principal); Z20.822 Contact with and (suspected) exposure to COVID-19; I10 Essential (primary) hypertension; E10.9 Type 1 diabetes mellitus without complications; Z79.4 Long term (current) use of insulin; Z79.899 Other long term (current) drug therapy
CPT/HCPCS: 36415; 71045; 80053; 83880; 84484; 85025; 93005; 94640; 94760; 96365; 96375; J2930; J3475; J7611; J7620

== ENCOUNTER 2023-03-20 08:28 | Emergency (ER) | payer OTHER ==
[2023-03-20] MEDS ORDERED: methylPREDNISolone Sod Succ/PF 125 MG/2 ML VIAL ONE (08:54)
[2023-03-20] MEDS ORDERED: Magnesium 2 GM/50 ML BAG (IN WATER) ONE ×2 (08:54→08:55)
[2023-03-20] MEDS ORDERED: Ipratropium/Albuterol 3 ML NEB ONE (09:17)
[2023-03-20 09:23] LABS: #Basophils 0.1 thou/uL (0.0-0.2); #Eosinphils 0.9 thou/uL (0.0-0.7); #Neutrophils 5.7 thou/uL (1.40-6.50); %Basophils 1.4 % (0.0-1.0); %Eosinophils 9.3 % (0.0-10.0); %Lymphocytes 22.3 % (21.0-51.0); %Monocytes 9.9 % (0.0-10.0); Hematocrit 43.2 % (42.0-52.0); Hemoglobin 14.8 g/dL (14.0-18.0); Mean Corpuscular HGB CONC 34.3 g/dL (32.0-36.0); Mean Corpuscular Hemoglobin 29.2 pg (27.0-31.0); Mean Corpuscular Volume 85.4 fl (78.0-98.0); Mean Platelet Volume 9.8 fL (7.4-10.4); Platelet Count 380 10x3/uL (130-400); RBC Distribution Width 13.9 % (11.5-14.5); Red Blood Cell (RBC) Count 5.06 mill/uL (4.70-6.10)
[2023-03-20] MEDS ORDERED: cefTRIAXone (ROCEPHIN) 2 GM VIAL ONE (09:41)
[2023-03-20] MEDS ORDERED: Azithromycin 250 MG TAB ONE (09:41)
[2023-03-20 09:55] LABS: ALT (SGPT) 20 U/L (8-55); AST (SGOT) 27 U/L (5-34); Albumin 4.4 g/dL (3.5-5.0); Alkaline Phosphatase 94 U/L (40-110); Anion Gap 14 mmol/L (10-20); BUN (Urea Nitrogen) 10 mg/dL (8.4-25.7); Bilirubin, Total 0.5 mg/dL (0.2-1.2); Calc. Creatinine Clearance 0 mL/min (70-130); Calcium 9.2 mg/dL (7.8-10.44); Carbon Dioxide 24 mmol/L (22-29); Chloride 101 mmol/L (98-107); Estimated GFR 73; Globulin 4.1 g/dL (2.4-3.5); Glucose 120 mg/dL (70-105); Protein, Total 8.5 g/dL (6.0-8.3); Sodium 135 mmol/L (136-145)
[2023-03-20 09:58] LABS: Troponin I Less than 0.010 ng/mL (< 0.028)
[2023-03-20] MEDS ORDERED: Albuterol 2.5 MG/0.5 ML NEB ONE ×2 (10:16→10:21)
== END 2023-03-20 12:14 | disposition home or self-care (01) ==
LOC: ERS 08:28
DX: J45.901 Unspecified asthma with (acute) exacerbation (principal); R09.02 Hypoxemia; I10 Essential (primary) hypertension; E10.9 Type 1 diabetes mellitus without complications; Z79.899 Other long term (current) drug therapy
CPT/HCPCS: 71045; 80053; 83880; 84484; 85025; 93005; 94640; 94760; 96365; 96367; 96375; J0696; J2930; J3475; J7611; J7620

== ENCOUNTER 2023-04-07 08:34 | Inpatient (IN) | payer OTHER ==
[2023-04-07] MEDS ORDERED: Magnesium 2 GM/50 ML BAG (IN WATER) ONE (08:54)
[2023-04-07] MEDS ORDERED: methylPREDNISolone Sod Succ/PF 125 MG/2 ML VIAL ONE (08:54)
[2023-04-07] MEDS ORDERED: Ipratropium/Albuterol 3 ML NEB ONE ×2 (09:02→09:13)
[2023-04-07 09:05] LABS: #Basophils 0.1 thou/uL (0.0-0.2); #Eosinphils 1.2 thou/uL (0.0-0.7); #Monocytes 1.1 thou/uL (0.11-0.59); #Neutrophils 5.7 thou/uL (1.40-6.50); %Basophils 1.2 % (0.0-1.0); %Eosinophils 11.6 % (0.0-10.0); %Lymphocytes 24.2 % (21.0-51.0); %Monocytes 9.8 % (0.0-10.0); %Neutrophils 52.9 % (42.0-75.0); Hematocrit 43.7 % (42.0-52.0); Hemoglobin 14.9 g/dL (14.0-18.0); Mean Corpuscular HGB CONC 34.1 g/dL (32.0-36.0); Mean Corpuscular Hemoglobin 29.2 pg (27.0-31.0); Mean Corpuscular Volume 85.5 fl (78.0-98.0); Mean Platelet Volume 9.6 fL (7.4-10.4); Platelet Count 394 10x3/uL (130-400); RBC Distribution Width 13.4 % (11.5-14.5); Red Blood Cell (RBC) Count 5.11 mill/uL (4.70-6.10); White Blood Cell (WBC) Count 10.7 10x3/uL (4.8-10.8)
[2023-04-07 09:28] LABS: Lipase 14 U/L (8-78)
[2023-04-07 09:33] LABS: Troponin I Less than 0.010 ng/mL (< 0.028)
[2023-04-07] MEDS ORDERED: cefTRIAXone (ROCEPHIN) 1 GM VIAL ONE (09:56)
[2023-04-07 10:03] LABS: SARS-CoV-2 NAA Rapid Test Not Detected (NotDetected)
[2023-04-07] MEDS ORDERED: Ondansetron PF 4 MG/2 ML Vial IVP PRN (10:13)
[2023-04-07] MEDS ORDERED: Senokot S 8.6-50 MG TAB PO PRN (10:13)
[2023-04-07] MEDS ORDERED: Guaifenesin DM 100-10/5 ML UDCUP PO PRN (10:13)
[2023-04-07] MEDS ORDERED: Sodium Chloride 0.9% 1,000 ML IV SCH (10:30)
[2023-04-07 10:46] LABS: Anion Gap 15 mmol/L (10-20); BUN (Urea Nitrogen) 14 mg/dL (8.4-25.7); Calc. Creatinine Clearance 0 mL/min (70-130); Calcium 9.8 mg/dL (7.8-10.44); Carbon Dioxide 22 mmol/L (22-29); Chloride 104 mmol/L (98-107); Estimated GFR 70; Glucose 159 mg/dL (70-105); Potassium 4.2 mmol/L (3.5-5.1); Sodium 137 mmol/L (136-145)
[2023-04-07] MEDS ORDERED: Azithromycin 500 MG VIAL ONE (10:46)
[2023-04-07] MEDS: Ipratropium/Albuterol 3 ML NEB NEB SCH ×2 (12:04→19:00)
[2023-04-07 12:10] VITALS: BMI 28.4
[2023-04-07] MEDS: methylPREDNISolone Sod Succ 40 MG VIAL IVP SCH ×2 (13:12→18:08)
[2023-04-07] MEDS: Calcium Carbonate 500 MG ChewTAB PO PRN (13:53)
[2023-04-07 14:06] LABS: Bacteria/HPF None Seen HPF (None Seen); Bilirubin Negative (Negative); Blood, Urine Negative (Negative); Clarity Clear (Clear); Glucose, Urine (Dipstick) >=1000 mg/dL (Negative); Ketone, Urine 10 mg/dL (Negative); Leukocyte Negative Leu/uL (Negative); Nitrite Negative (Negative); Protein, Urine (Dipstick) Negative (Neg-Trace); RBC/HPF 0-3 HPF (0-3); Specific Gravity, Urine 1.017 (1.002-1.036); Squamous Epithelial None Seen HPF (0-3); WBC/HPF 0-3 HPF (0-3)
[2023-04-07 14:14] LABS: Amphetamine Not Detected (NotDetected); Barbiturates Screen Not Detected (NotDetected); Benzodiazepine Screen Not Detected (NotDetected); Cocaine Metabolite Screen Not Detected (NotDetected); Methadone Not Detected (NotDetected); Methamphetamine Not Detected (NotDetected); Opiate Screen Not Detected (NotDetected); Oxycodone Screen Not Detected (NotDetected); Phencyclidine (PCP) Not Detected (NotDetected); THC/Cannabinoid Screen Detected (NotDetected); Tricyclic Screen Not Detected (NotDetected)
[2023-04-07] MEDS: Benzonatate 100 MG CAP PO SCH ×2 (15:02→20:39)
[2023-04-07] MEDS ORDERED: HumaLOG 300 UNITS/3 ML VIAL SC PRN (15:08)
[2023-04-07] MEDS ORDERED: Dextrose 50% Abboject 50 ML SYRINGE SLOW IVP PRN (15:08)
[2023-04-07] MEDS ORDERED: Dextrose 5% in Water 1,000 ML IV PRN (15:08)
[2023-04-07] MEDS ORDERED: Glucagon 1 MG/ML KIT IM PRN (15:08)
[2023-04-07] MEDS: Insulin Glargine 30 UNITS/0.3 ML VIAL SC SCH (18:07)
[2023-04-07] MEDS: Acetaminophen 325 MG TAB PO PRN (20:38)
[2023-04-07] MEDS: Rosuvastatin 20 MG TAB PO SCH (20:39)
[2023-04-07] MEDS: Gabapentin 300 MG CAP PO SCH (20:39)
[2023-04-07] MEDS: HumaLOG 300 UNITS/3 ML VIAL SC PRN (20:45)
[2023-04-07] MEDS ORDERED: Famotidine 20 MG TAB PO SCH (21:00)
[2023-04-08] MEDS: Ipratropium/Albuterol 3 ML NEB NEB SCH ×3 (00:32→12:52)
[2023-04-08] MEDS: methylPREDNISolone Sod Succ 40 MG VIAL IVP SCH ×4 (00:38→17:00)
[2023-04-08 05:51] LABS: #Monocytes 0.6 thou/uL (0.11-0.59); #Neutrophils 9.2 thou/uL (1.40-6.50); %Basophils 0.2 % (0.0-1.0); %Monocytes 5.5 % (0.0-10.0); Hematocrit 39.9 % (42.0-52.0); Hemoglobin 13.7 g/dL (14.0-18.0); Mean Corpuscular HGB CONC 34.3 g/dL (32.0-36.0); Mean Corpuscular Hemoglobin 29.2 pg (27.0-31.0); Mean Corpuscular Volume 85.1 fl (78.0-98.0); Mean Platelet Volume 9.6 fL (7.4-10.4); Platelet Count 346 10x3/uL (130-400); RBC Distribution Width 13.2 % (11.5-14.5); Red Blood Cell (RBC) Count 4.69 mill/uL (4.70-6.10); White Blood Cell (WBC) Count 10.8 10x3/uL (4.8-10.8)
[2023-04-08] MEDS: HumaLOG 300 UNITS/3 ML VIAL SC PRN ×4 (05:54→20:35)
[2023-04-08 06:13] LABS: Anion Gap 14 mmol/L (10-20); BUN (Urea Nitrogen) 18 mg/dL (8.4-25.7); Calc. Creatinine Clearance 85 mL/min (70-130); Calcium 9.3 mg/dL (7.8-10.44); Carbon Dioxide 22 mmol/L (22-29); Chloride 102 mmol/L (98-107); Estimated GFR 70; Glucose 302 mg/dL (70-105); Potassium 4.3 mmol/L (3.5-5.1); Sodium 134 mmol/L (136-145)
[2023-04-08] MEDS ORDERED: guaiFENesin/Codeine 200 mg/20 mg 10 ml Cup PO PRN (08:43)
[2023-04-08] MEDS ORDERED: NIFEdipine XL 60 MG TAB PO SCH ×2 (09:00→16:58)
[2023-04-08] MEDS ORDERED: cefTRIAXone\\ROCEPHIN 1 GM in Sodium Chloride 0.9% 100 ML IVPB SCH (09:00)
[2023-04-08] MEDS: Losartan 25 MG TAB PO SCH (09:13)
[2023-04-08] MEDS: Benzonatate 100 MG CAP PO SCH ×3 (09:13→20:33)
[2023-04-08] MEDS: Gabapentin 300 MG CAP PO SCH ×2 (09:13→20:33)
[2023-04-08] MEDS: Insulin Glargine 30 UNITS/0.3 ML VIAL SC SCH ×2 (09:15→20:34)
[2023-04-08] MEDS: Calcium Carbonate 500 MG ChewTAB PO PRN ×2 (09:24→16:56)
[2023-04-08] MEDS: Acetaminophen 325 MG TAB PO PRN ×2 (16:56→20:32)
[2023-04-08 17:41] LABS: #Neutrophils 12.5 thou/uL (1.40-6.50); %Basophils 0.1 % (0.0-1.0); %Lymphocytes 5.2 % (21.0-51.0); %Monocytes 6.9 % (0.0-10.0); %Neutrophils 87.4 % (42.0-75.0); Hematocrit 37.9 % (42.0-52.0); Hemoglobin 13.1 g/dL (14.0-18.0); Mean Corpuscular HGB CONC 34.6 g/dL (32.0-36.0); Mean Corpuscular Hemoglobin 29.2 pg (27.0-31.0); Mean Corpuscular Volume 84.4 fl (78.0-98.0); Mean Platelet Volume 9.9 fL (7.4-10.4); Platelet Count 360 10x3/uL (130-400); RBC Distribution Width 13.4 % (11.5-14.5); Red Blood Cell (RBC) Count 4.49 mill/uL (4.70-6.10); White Blood Cell (WBC) Count 14.3 10x3/uL (4.8-10.8)
[2023-04-08 18:30] LABS: Free T4 (Free Thyroxine) 0.83 ng/dL (0.70-1.48); Thyroid Stimulating Hormone 0.4602 uIU/mL (0.35-4.94)
[2023-04-08 18:31] LABS: Vitamin D, 25 Hydroxy 9.1 ng/ml (> 30.0)
[2023-04-08] MEDS: Rosuvastatin 20 MG TAB PO SCH (20:32)
[2023-04-08] MEDS: diphenhydrAMINE 25 MG CAP PO SCH (20:32)
[2023-04-08] MEDS: Ascorbic Acid 500 mg Chewable Tablet PO SCH (20:33)
[2023-04-08] MEDS: Montelukast Sodium 10 mg Tablet PO SCH (20:33)
[2023-04-08] MEDS: Acetylcysteine 20% 200 MG/ML 30 ML VIAL PO SCH (21:10)
[2023-04-09] MEDS: methylPREDNISolone Sod Succ 40 MG VIAL IVP SCH ×4 (00:09→17:43)
[2023-04-09] MEDS: Ascorbic Acid 500 mg Chewable Tablet PO SCH ×3 (06:13→20:54)
[2023-04-09] MEDS: HumaLOG 300 UNITS/3 ML VIAL SC PRN ×4 (06:15→20:56)
[2023-04-09] MEDS: NIFEdipine XL 60 MG TAB PO SCH (08:44)
[2023-04-09] MEDS: Gabapentin 300 MG CAP PO SCH ×2 (08:45→20:55)
[2023-04-09] MEDS: Benzonatate 100 MG CAP PO SCH ×3 (08:45→20:55)
[2023-04-09] MEDS: Losartan 25 MG TAB PO SCH (08:45)
[2023-04-09] MEDS: Loratadine 10 MG TAB PO SCH (08:45)
[2023-04-09] MEDS: Insulin Glargine 30 UNITS/0.3 ML VIAL SC SCH ×2 (08:46→20:55)
[2023-04-09] MEDS ORDERED: Insulin Glargine 30 UNITS/0.3 ML VIAL SC SCH (09:15)
[2023-04-09] MEDS: Acetylcysteine 20% 200 MG/ML 30 ML VIAL PO SCH ×2 (10:58→20:54)
[2023-04-09 15:33] LABS: Allergen,Alternaria altern.IgE Less than 0.10 kU/L (Less than 0.10); Allergen,Aspergillus fumig.IgE 0.17 kU/L (Less than 0.10); Allergen,Bermuda grass IgE Less than 0.10 kU/L (Less than 0.10); Allergen,Cat dander IgE Less than 0.10 kU/L (Less than 0.10); Allergen,Cedar mountain IgE 5.64 kU/L (Less than 0.10); Allergen,Cladosporium herb.IgE Less than 0.10 kU/L (Less than 0.10); Allergen,Cottonwood Tree IgE Less than 0.10 kU/L (Less than 0.10); Allergen,D. pteronyssinus IgE Less than 0.10 kU/L (Less than 0.10); Allergen,Dog dander IgE Less than 0.10 kU/L (Less than 0.10); Allergen,Elm AmericanWhite IgE Less than 0.10 kU/L (Less than 0.10); Allergen,Pecan/Hickory IgE Less than 0.10 kU/L (Less than 0.10); Allergen,Timothy grass IgE Less than 0.10 kU/L (Less than 0.10)
[2023-04-09] MEDS: Rosuvastatin 20 MG TAB PO SCH (20:55)
[2023-04-09] MEDS: diphenhydrAMINE 25 MG CAP PO SCH (20:55)
[2023-04-09] MEDS: Montelukast Sodium 10 mg Tablet PO SCH (20:55)
[2023-04-10] MEDS: methylPREDNISolone Sod Succ 40 MG VIAL IVP SCH ×3 (00:08→11:33)
[2023-04-10] MEDS: HumaLOG 300 UNITS/3 ML VIAL SC PRN ×2 (05:40→11:47)
[2023-04-10] MEDS: Ascorbic Acid 500 mg Chewable Tablet PO SCH ×2 (05:40→14:11)
[2023-04-10] MEDS: Losartan 25 MG TAB PO SCH (08:13)
[2023-04-10] MEDS: NIFEdipine XL 60 MG TAB PO SCH (08:13)
[2023-04-10] MEDS: Gabapentin 300 MG CAP PO SCH (08:13)
[2023-04-10] MEDS: Benzonatate 100 MG CAP PO SCH ×2 (08:14→14:11)
[2023-04-10] MEDS: Loratadine 10 MG TAB PO SCH (08:14)
[2023-04-10] MEDS: Acetylcysteine 20% 200 MG/ML 30 ML VIAL PO SCH (08:18)
[2023-04-10] MEDS ORDERED: Insulin Glargine 30 UNITS/0.3 ML VIAL SC SCH ×3 (09:00→21:00)
[2023-04-10 12:18] VITALS: BP 116/73; TEMP 98.8
[2023-04-11] MEDS ORDERED: predniSONE 20 MG TAB PO SCH (08:00)
== END 2023-04-10 16:08 | disposition home or self-care (01) | DRG 189 ==
LOC: ERS 08:34 → T4-B 10:18 → OBSVTOIN 04-08 15:05
PROVIDERS: ADMIT Hospitalist; ATTEND Internal Medicine
DX: J96.01 Acute respiratory failure with hypoxia (principal); I42.8 Other cardiomyopathies; J45.51 Severe persistent asthma with (acute) exacerbation; F20.0 Paranoid schizophrenia; M35.89 Other specified systemic involvement of connective tissue; F19.20 Other psychoactive substance dependence, uncomplicated; E11.9 Type 2 diabetes mellitus without complications; I11.9 Hypertensive heart disease without heart failure; F12.10 Cannabis abuse, uncomplicated; F32.9 Major depressive disorder, single episode, unspecified; F41.9 Anxiety disorder, unspecified; K21.9 Gastro-esophageal reflux disease without esophagitis; Z20.822 Contact with and (suspected) exposure to COVID-19; E55.9 Vitamin D deficiency, unspecified; Z79.51 Long term (current) use of inhaled steroids; Z79.899 Other long term (current) drug therapy; Z87.891 Personal history of nicotine dependence; Z79.4 Long term (current) use of insulin
CPT/HCPCS: 36415; 36416; 71045; 71250; 74246; 78264; 80048; 80306; 81001; 82306; 82785; 83088; 83605; 83690; 83735; 83880; 84439; 84443; 84481; 84484; 85025; 85379; 85652; 86140; 87040; 93005; 93306; 93970; 94640; 96376; A9500; G0378; J0132; J0456; J0696; J1815; J2785; J2920; J2930; J3475; J3490; J7050; J7611; J7620

== ENCOUNTER 2025-05-08 10:22 | Outpatient (CLI) | payer OTHER | END 2025-05-08 10:23 | disposition home or self-care (01) | LOC: BICRAD 10:22 | PROVIDERS: ATTEND Family Medicine | DX: M54.50 Low back pain, unspecified (principal); M47.816 Spondylosis without myelopathy or radiculopathy, lumbar region | CPT/HCPCS: 72100 ==